=== PATIENT | male | born 1935 | race Caucasian/White ===

== ENCOUNTER 2022-03-10 15:15 | Emergency (ER) | payer MEDICARE, BC, SELFPAY ==
[2022-03-10 15:24] VITALS: BP 146/74; PULSE 90; RESP 18; TEMP 36.9; O2SAT 97; BMI 22.5
--- NOTE | 2022-03-10 15:38 | CRLHL7_ITS ---
For Patients: As a result of the Cures Act, medical imaging exams and procedure reports are released immediately into your electronic medical record. You may view this report before your referring provider. If you have questions, please contact your health care provider. Indication: Dislocation Technique: Right hip 2 views and AP view of the pelvis Comparison: September 05, 2021 Findings: Bones: Redemonstrated superior lateral dislocation of the prosthetic right femoral head. No underlying osseous fractures are identified. Demineralization of visualized bones. Joint spaces: Degenerative changes in the left hip, bilateral SI joints and lower lumbar spine. Soft tissues: Unremarkable. Impression: Dislocation of the right prosthetic femoral head. Dictated by Amara Puente MD @ 03/10/2022 4:47:51 PM (Electronically Signed)
[2022-03-10] MEDS: fentaNYL 100 MCG/2 ML inj 50 MCG IVP (15:40)
--- NOTE | 2022-03-10 15:42 | ED_ITS ---
HPI - Extremity Injury (Lower) General Time Seen by Provider: 15:35 Date Seen: 03/10/22 Chief Complaint: Hip Injury/Pain Stated Complaint: Hip Pain Time Seen by Provider: 03/10/22 15:34 Source: patient and family Mode of arrival: EMS History of Present Illness HPI Narrative: This 86-year-old male comes in with a right hip injury. 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 Today he was at home getting up from the toilet when his hip was injured again suspicious for a repeat dislocation. He does not have any other injury as result. He does have limited ability to give information because of dementia. MD complaint: hip injury Injury: Right: hip Severity: severe Relieving factors: nothing Related Data Allergies Allergy/AdvReac Type Severity Reaction Status Date / Time ciprofloxacin [From Cipro] Allergy Rash Verified 03/10/22 15:42 Review of Systems Status of ROS: Reports: unobtainable due to mental status PFSH PFS Social History Smoking Status: Never smoker Do you use any of these nicotine containing products: None How often do you have a drink containing alcohol: never AUDIT-C Alcohol total score: 0 Non-prescribed substance use: denies use service: No Exam Const: Vital Signs, click to edit/add: Vital Signs - 24 hr 03/10/22 15:24 Temperature 98.4 F Pulse Rate [Right Pulse Oximeter] 90 Respiratory Rate 18 Blood Pressure [Ri ght Upper Arm] 146/74 H Pulse Oximetry 97 Common normals: alert Orientation/consciousness: Yes awake HENMT: Common normals: normocephalic Head and scalp: normocephalic Eye: Common normals: PERRL Pupil: PERRL Neck & C-Spine: Common normals: full ROM General: normal visual inspection Chest: Common normals: inspection of chest normal Resp: Common normals: normal respiratory effort and clear to auscultation bilaterally Auscultation: clear to auscultation bilaterally Cardio: Common normals: regular rate and regular rhythm Rate: regular rate Rhythm: regular rhythm GI: Common normals: Normal to inspection, nondistended, normoactive bowel sounds present Inspection: normal to inspection Auscultation: normoactive bowel sounds : Other: Deferred Extremity: Right lower extremity: hip joint Other: The patient's hip is held in flexion and internal rotation typical of dislocation. Neuro: Common normals: no focal motor deficits Sensorium/orientation: awake and alert Psych: Common normals: mental status grossly normal Skin: Common normals: no rashes or lesions noted General skin exam: no rashes or lesions noted Course Vital Signs Vital signs: Initial Vital Signs Temperature 98.4 F 03/10/22 15:24 Temperature Source Temporal Artery Scan 03/10/22 15:24 Pulse Rate 90 03/10/22 15:24 Respiratory Rate 18 03/10/22 15:24 Blood Pressure 146/74 H 03/10/22 15:24 Blood Pressure Mean 98 03/10/22 15:24 Blood Pressure Position Sitting 03/10/22 15:24 Pulse Oximetry 97 03/10/22 15:24 Oxygen Delivery Method 03/10/22 15:24 Vital Signs Temperature 98.4 F 03/10/22 15:24 Pulse Rate 90 03/10/22 15:24 Respiratory Rate 18 03/10/22 15:24 Blood Pressure 146/74 H 03/10/22 15:24 Pulse Oximetry 97 03/10/22 15:24 Temperature 98.4 F 03/10/22 15:24 Pulse Rate 90 03/10/22 15:24 Respiratory Rate 18 03/10/22 15:24 Blood Pressure 146/74 H 03/10/22 15:24 Pulse Oximetry 97 03/10/22 15:24 MDM - Extremity Injury (Lower) MDM Narrative Medical decision making narrative: This patient comes in with a dislocated right hip. 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 His states that he had 2 previous dislocations in the past 4 days. This occurred up in [place] where he presented twice to have his hip relocated. X-ray images show evidence of an anterior dislocation. Anesthesia was contacted and after acquiring informed consent the patient received propofol for sedation. See anesthesia notes for more data in this regard. The patient had good sedation and I was very easily able to reduce his hip. The patient's and son and daughter have been present with him and indicate that he will very likely have another recurrence. I did speak with the hospitalist operations program manager and the orthopedic physician's assistant credit manager operations program manager regarding his situation. Arrangements are being made to connect with a revision assist that can attend to the complexity of this situation. Furthermore the hospitalist, Dr. Lepe, states that there are no transitional care or [place] [facility] facilities available for him if he were to stay overnight tonight and be placed tomorrow. The patient has not used a knee immobilizer or a hip abductor mechanism. IA did order a knee immobilizer and the patient and his family are willing to return home with this plan. I also advised them to consider going to a large hospital if he dislocates again where attention could be given more directly to the underlying problem. Medical Records Attestation: I reviewed the patient's medical records. Imaging Data Hip x-ray: My impression: Anterior dislocation of the right hip. Critical Care Time Critical Care Time Total Critical Care Time in Minutes: 45 Discharge Plan Discharge Patient Disposition: Home, Self-Care Condition: Improved Instructions: Hip Dislocation (ED) Activity Level: Activity as Tolerated and Don't flex hip more than 90 degrees Activity Detail: Wear knee immobilizer. Follow Up/Referrals: Jose Cherry MD [Primary Care Provider] - Stand Alone Forms: SeatID Info Instructions
--- NOTE | 2022-03-10 16:39 | CRLHL7_ITS ---
For Patients: As a result of the Cures Act, medical imaging exams and procedure reports are released immediately into your electronic medical record. You may view this report before your referring provider. If you have questions, please contact your health care provider. Indication: Post reduction. Technique: Right hip 1 views Comparison: Right foot radiographs from 03/10/2022. Findings: Bones: The bones are demineralized. No displaced fracture. Joint spaces: Reduction of the dislocated right hip arthroplasty. Soft tissues: Unremarkable. Impression: Dislocated arthroplasty has been reduced. Dictated by Jerrell Bowman MD @ 03/10/2022 5:58:09 PM (Electronically Signed)
--- NOTE | 2022-03-10 16:45 | PC.NURSE ---
procedure complete and hip reduced, imaging to room, pt still drowsy but arouses easily to voice, family at bedside
--- NOTE | 2022-03-10 16:48 | W.ANESCHARGE ---
Anesthesia Charges Start Date/Time Anesthesia Start Date: 03/10/22 Anesthesia Start Time: 16:26 Stop Date/Time Anesthesia Stop Date: 03/10/22 Anesthesia Stop Time: 16:47 Summary Emergency: Yes Extremes of Age: Over 70-CPT 60021
[2022-03-10 16:50] VITALS: BP 119/51; PULSE 88; RESP 14; O2SAT 96
[2022-03-10 17:00] VITALS: BP 127/60; PULSE 84; RESP 16; O2SAT 95
[2022-03-10 17:30] VITALS: BP 150/71; PULSE 87; RESP 14; O2SAT 99
--- NOTE | 2022-03-10 17:46 | PC.NURSE ---
Dr Fofana in room
[2022-03-10 18:00] VITALS: BP 136/87; PULSE 91; RESP 16; O2SAT 95
== END 2022-03-10 18:55 | disposition home or self-care (01) ==
PROVIDERS: Emergency Provider Emergency Medicine Emergency Medical Services; PCP Family Medicine
DX: S73.034A Other anterior dislocation of right hip, initial encounter (principal)
CPT/HCPCS: 1200; 27266; 73501; 73502; 99100; 99140; 99285; 99291; J2704; J3010

== ENCOUNTER 2022-06-18 16:16 | Inpatient (IN) | payer MEDICARE, BC, SELFPAY ==
[2022-06-18] VITALS (18 sets, daily range): BP systolic 84–158; BP diastolic 43–110; PULSE 98–122; RESP 13–22; TEMP 37.3–39.1; O2SAT 90–95; BMI 22.5
--- NOTE | 2022-06-18 17:07 | CRLHL7_ITS ---
For Patients: As a result of the Century Cures Act, medical imaging exams and procedure reports are released immediately into your electronic medical record. You may view this report before your referring provider. If you have questions, please contact your health care provider. INDICATION: Confusion, fever. TECHNIQUE: Chest 1 views. COMPARISON: 09/05/2021.. FINDINGS: Cardiovascular and mediastinum: Heart size and vasculature are normal in caliber and appearance. Lungs and pleural spaces: Bilateral interstitial opacities increased compared to prior exam. No large pleural effusion. No pneumothorax. Bones and soft tissues: Severe bilateral shoulder osteoarthritis. IMPRESSION: Chronic bilateral interstitial opacities increased compared to prior exam may be due to worsening chronic interstitial lung disease versus superimposed acute interstitial process such as infection or edema. Dictated by Rohith Burnett MD @ 06/18/2022 6:50:41 PM (Electronically Signed)
[2022-06-18] MEDS: LORazepam 2 MG/ML inj 0.5 MG IVP ×2 (17:39→22:34)
--- OUTSIDE RECORDS SUMMARY | 2022-06-18 17:39 | XMS_ITS | Clinical Summary ---
:1935 Author Organization [employer] [facility] [employer] [place] [address] Care Team Providers Name Role Phone Anna Ashford MD Unavailable Ranjit Baptiste MD Unavailable Jose Cherry MD Primary Care Provider Allergies Active Allergy Reactions Severity Noted Date Comments Ciprofloxacin Hives, Rash, Nausea Only 03/28/2007 Medications Medication Sig Dispensed Refills Start End Status Date Date blood-glucose As directed. 1 Device 0 12/08/19 Act theresa meterIndications: Dispense glucose 10 Diabetes mellitus meter, test type II strips and lancets. Dispense ONE STEP ULTRA #2 meter with test strips. ascorbic acid, Take 1 tablet by 0 07/27/20 Active vitamin C, (VITAMIN mouth once 11 C) 1,000 mg tablet daily. niacin ER (NIASPAN) Take 1 tablet by 0 04/23/20 Active 500 mg mouth at 18 Sustained-Release bedtime. tablet cholecalciferol Take 1 capsule 0 11/14/19 Active (VITAMIN D3) 2,000 by mouth once 21 unit capsule daily. glipiZIDE Take 1 Tablet 180 Tablet 3 08/16/20 Activ e extended-release (10 mg) by mouth 21 (GLUCOTROL XL) 10 mg 2 times daily Extended-Release before meals. tabletIndications: TAKE 1 TABLET BY Type 2 diabetes MOUTH TWICE A mellitus without DAY BEFORE MEALS complication, without long-term current use of insulin (HC) lisinopriL (PRINIVIL; Take 1 Tablet 90 tablet. 3 08/16/20 Active ZESTRIL) 2.5 mg (2.5 mg) by 21 tabletIndications: mouth once Essential daily. hypertension plant stanol oren Take 1 capsule. 90 capsule. 3 08/16/20 Active 450 mg by mouth at 21 capIndications: Mixed bedtime. hyperlipidemia tamsulosin (FLOMAX) Take 2 Capsules 30 Capsule 11 08/16/20 Active 0.4 mg (0.8 mg) by 21 capsuleIndications: mouth once daily BPH with urinary after a meal. obstruction OneTouch Delica Plus DIRECTED. 100 Each 12 08/24/20 Active Lancet 33 gauge TEST ONCE DAILY 21 miscIndications: Type INDICATIONS: 2 diabetes mellitus DIABETES without complication, INDICATIONS: without long-term DIABETES current use of insulin (HC) ferrous gluconate 324 Take 324 mg by 0 Active mg (37.5 mg iron) tab mouth once daily tablet with a meal. hydrOXYchloroQUINE Take 1 Tablet 90 Tablet 3 11/23/19 Active (PLAQUENIL) 200 mg (200 mg) by 22 tabletIndications: mouth once Connective tissue daily. disease (HC) acetaminophen Take 325-650 mg 0 Active (TYLENOL) 325 mg by mouth every 4 tablet hours if needed for Pain. Max acetaminophen dose: 4000mg in 24 hrs. metFORMIN Take 1 Tablet 180 Tablet 3 03/02/20 Activ e (GLUCOPHAGE) 1,000 mg (1,000 mg) by 22 tabletIndications: mouth in the Type 2 diabetes morning and 1 mellitus without Tablet (1,000 complication, without mg) in the long-term current use evening. Take of insulin (HC) with meals. alendronate (FOSAMAX) Take 70 mg by 0 Active 70 mg tablet mouth every Monday. Take on empty stomach with full glass of water. Do not lie down for 1 hr. pantoprazole Take 20 mg by 0 Act theresa (PROTONIX) 20 mg mouth once tabletIndications: daily. heartburn clotrimazole-betameth Apply 1 Dose 0 Active asone cream topically to (LOTRISONE) 1-0.05 % affected area(s) cream once daily if needed. Apply to groin for irritation and enlargement. methocarbamoL Take 1 Tablet 30 Tablet 0 04/04/20 Ac tive (ROBAXIN) 500 mg (500 mg) by 22 tabletIndications: mouth every 6 History of revision hours if needed of total replacement for Muscle Spasm of right hip joint, PO 1st choice. Muscle spasm ibuprofen (ADVIL; Take 1 Tablet 30 Tablet 0 04/05/20 Active MOTRIN) 400 mg (400 mg) by 22 tabletIndications: mouth every 6 History of revision hours if needed of total replacement for Pain. of right hip joint novofine autocover 30 0 04/06/20 Active gauge x 1/3 needle 22 Multivitamin Cmb Take by mouth. 0 05/11/20 Active No.21-Iron-FA 22 (Certavite-Antioxidan t) 18-400 mg-mcg tab blood sugar USE TO TEST 100 Each 3 05/11/20 Active diagnostic (OneTouch DAILY E 11.65 22 Verio test strips) stripIndications: Type 2 diabetes mellitus with hyperglycemia, unspecified whether mcfp insulin use (HC) aspirin (ECOTRIN) 81 Take 1 Tablet 24 Tablet 0 04/04/2005/27 / Discontinued mg enteric coated (81 mg) by mouth 2021 (*Med tabletIndications: in the morning complete/Regim History of revision and 1 Tablet (81 en of total replacement mg) in the complete/Level of right hip joint evening. Take of care with meals. change) Basaglar KwikPen Inject 8 units 1 Each 5 05/11/2005/27/ Discontinued U-100 Insulin 100 subcutaneous at 2021 (*Med unit/mL (3 mL) bedtime. Product complete/Regim penIndications: Type desired: en 2 diabetes mellitus BASAGLAR complete/Level with hyperglycemia, of care unspecified whether change) mcfp insulin use (HC) QUEtiapine (SEROQUEL) Take 1 Tablet 30 Tablet 0 05/11/2005/12 5/ Discontinued 25 mg (25 mg) by mouth 2021 (*M ed tabletIndications: at bedtime. 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 Essential hypertension 11/07/2018 Connective tissue disease 07/10/2017 Overview: This resulted in elevated liver chemistr y tests. The family asked me to refill Hydroxychl oroquine as they no longer want to go down to [place]. CBC and Basic Metabolic Panel and liver chemistry tests need to be checked at least every 12 months. Jose Cherry MD signed electronically .................... 11/22/2021 Interstitial lung disease 07/10/2017 Overview: Followed at [facility] Urinary urgency 04/05/2017 Iron deficiency anemia due to chronic blood loss 08/13 Aortic valve stenosis 07/06/2015 Overview: Due for echocardiogram and Cardiology fo llow up in 12/2021 Yearly echocardiograms have been recomme nded and he will be due for an echocardiogram in 10/2020 Beny has no symptoms as of 11/08/2019. Sjogren's syndrome 04/17/2015 Fibrosis of lung 04/01/2015 H. pylori infection 06/04/2013 Overview: EGD 05/2013 H. Pylori JOSE 08/08/2012 AHI-32 08/10/2012 Overview: Per patient, Dr Narayan did not recommend C PAP. 11/12/2012 Diabetes mellitus, type 2 12/27/2011 Overview: Formatting of this note might be differe nt from the original. Diabetes mellitus type II Abnormal LFTs 10/27/2011 Overview: Fatty Liver based on ultrasound. 2 S/P recent MRI and liver chemistry tests being followed by Dr Marquez 05/01/201305/2013 thinks the liver chemistry tests are due to fatty liver. ACP (advance care planning) 04/28/2011 Overview: Discussed 04/28/2011 Sensorineural hearing loss, asymmetrical 02/08/2011 Overview: left worse than right, known asymmetry Tinnitus 02/08/2011 Overview: left ear only, related to asymmetric hea ring loss in left ear Unspecified hearing loss 07/26/2010 Overview: Had ruptured TYMPANIC MEMBRANES in servi ce: has chronic Tinnitus; will have Audiogram soon. 07/26/2010 Hyperlipidemia 03/28/2007 Benign prostatic hyperplasia 03/28/2007 Overview: Had seen Dr Tamayo spring 2008: not much found on exam; urinary frequency persists. 07/26/2010 Patient recently again saw Urologist, Dr Simental, who restarted Flomax and plans Cystoscopy after Hip surgery and recovery. 12/21/2011 Now with nocturia x 2-3 on Flomax and Ve sicare; considering Interstim 03/18/2013 Type 2 diabetes mellitus without complication, without long-term current 08/02/2002 use of insulin Overview: This was diagnosed in 05/1996. Resolved Problems Problem Noted Date Resolved Date Elevated troponin 09/25/2021 03/17/2022 Cystitis 09/25/2021 09/25/2021 HTN (hypertension) 12/25/2017 11/07/2018 Fe deficiency anemia 04/18/2012 08/13/2012 Overview: Noted since 2007; not progressive. Patient has donated blood regularly, las t 09/2011; advised against donations in future. 11/17/2011 Iron Deficiency Anemia confirmed by Dr Aleah Simeon. 04/18/2012 group home (current) use of anticoagulants 01/05/2012 03/07/2012 group home (current) use of anticoagulants 12/17/2007 10/21/2008 Encounters Date Type Specialty Care Team Description 06/14/2022 Telephone Elton Drake, 90 Day Foll ow Up 06/09/2022 Telephone Jose Cherry Form (Orders/ insulin) MD Americo 05/27/2022 Telephone Jose Cherry Medication Melissa Driscoll MD 05/23/2022 Refill Jose Cherry Refill Carolyn Driscoll MD (Lisinopril) 05/19/2022 Telephone Jose Cherry Medication Melissa Driscoll MD 05/11/2022 Office Visit Jose Cherry Ma, MD (Talk about ins ulin only taking 10 units of Basaglar. Would like to know if they ca n discontinue the Seroquel ); Fat igue (Very tired fal ls asleep often) 05/11/2022 Travel 05/10/2022 Phone Office Visit Alf Carver MD 05/02/2022 Telephone Jose Cherry FAX ORDERS ([facility] Leti Driscoll MD [facility]) 04/18/2022 Telephone Elton Drake, 30 Day Heidi Gregorio MD 03/18/2022 Anesthesia Event Bj Cross, Jeb Hubbard CRNA 03/18/2022 Surgery Elton Drake, RIGHT ARTHR OPLASTY REVISION HIP 03/18/2022 - Hospital Encounter Elton Drake, William ion of total replacement of right hip joint (Primary Dx); 04/05/2022 Muscle spasm; Dementia associ ated with other underlying disease without behavioral disturbance (HC); Type 2 diabetes mellitus with hyperglycemia, unspecified whether mcfp insulin use (HC) [facility] 8:26 AM CDT Images from the original not e were not included. HOSPITAL DISCHARGE SUMMARY Patient Name: Power Grey Date of : 1935 Age : 86 y.o. [id number] Primary Physician: Jose Cherry MD Admission Date: 03/18/2022 Discharge Date: 04/05/2022 Dear Jose Cherry MD I am writing to inform you t hat we cared for your patient Power Grey at [place], [place] on the above dates. He will be discharged from [place], [place] to memory care. PRINCIPAL DISCHARGE DIAGNOSI S: History of revision of total replacement of right hip joint Principal Problem: Revision of total replaceme nt of right hip joint Active Problems: Benign prostatic hyperplasi a JOSE 08/08/2012 AHI-32 Aortic valve stenosis Essential hypertension Diabetes mellitus, type 2 ( HC) Disorder of lung with Sjogr en's syndrome (HC) Dementia associated with ot her underlying disease without behavioral disturbance (HC) BRIEF HOSPITAL COURSE: Power Grey is a 86 y.o. male with multiple medical problems including dementia, BPH, severe , HTN, DM2, JOSE, disorder of Sjogren's disease and interstitial lung disease. He was admitted following elective revision right tota l hip arthroplasty after failed conservative outpatient therapy. I am assisting with medical management as follows: S/P revision of total replac ement of right hip joint. Doing well postop with pain well controlled. Tolerating ambulation, physical therapy - walking > 200 feet with minimal assistance. He will follow up with Orthopedics as mg jamison. Has been cleared to proceed to subacute rehabilitation but had behavioral challenges related to Dementia associated with other underlying disease. Behavior (intermitte ntly restless, impulsive and easily agitated) has been resolved with oral Seroquel and patient no longer requiring 1:1 observational care and is appropriate for memory care. Diabetes mellitus, type 2: A 1C 8.9 consistent with poor control. Patient was started on Lantus insulin plus sliding scale with metformin held. At this time, patient will discharge on metformin and Lantus at bedtime as detailed below. No changes were made to exis ting management of the patient's other medical conditions as they were deemed at baseline. Patient will discharge in fair hemodynamic condition. Medications have been reconci led with the patient who has received extensive counseling on, and express understanding of the treatment plan given the patient's current medical condition. Follow-up is detailed below. PROCEDURES PERFORMED DURING HOSPITALIZATION: Revision total hip arthroplasty on the right COMPLICATIONS IN HOSPITAL: B ehavioral decompensation, now resolved PERTINENT FINDINGS/RESULTS A T DISCHARGE: BP 122/64 (Cuff Size: Adult Small) Pulse 98 Temp 98.3 ??F (36.8 ??C) Resp 16 Ht 1.651 m (5' 5) Wt 69.6 kg (153 lb 6.4 oz) SpO2 97% BMI 25.53 kg/m?? Patient Vitals for the past 72 hrs: Weight 04/04/22 0519 69.6 kg (153 l b 6.4 oz) 04/03/22 0010 70 kg (154 lb 4.8 oz) PHYSICAL EXAM GENERAL: Patient is in fair condition, in no apparent distress HEENT: Patient is normocepha lic, atraumatic EYES: No conjunctival inject ion, no significant icterus, PERRLA NECK: Neck is soft and suppl e, no areas of tenderness or cervical lymphadenopathy. RESPIRATORY: Lungs are CTA w ithout rales or rhonchi CARDIOVASCULAR: S1S2 heard. RRR, no murmurs, rubs or gallops GI: Soft, non-distended with out organomegaly. Non-tender without rebound or guarding. BS are normoactive. EXTREMITIES: Warm & well per fused. No edema NEUROLOGIC: The patient is a wake, alert and oriented to self. Grossly normal neurological exam. PSYCHIATRIC: Normal affect, tangential speech SKIN: Exposed skin is within normal limits. MS: No obvious muscular asym metry. Right hip tender with range of motion ?? Latest Laboratory Results: Chem: Recent Labs 03/31/22 0625 03/28/22 0858 SODIUM 137 137 POTASSIUM 3.9 4.3 CREATININE 0.78 0.71 WBC/Hgb: Recent Labs 04/01/22 0628 03/31/22 0625 03/28/22 1330 03/19/22 0722 03/16/22 1642 WBC -- -- 6.8 -- 6.2 HGB 10.3 L 7.3 L 8.7 L < > 1 0.4 L < > = values in this interv al not displayed. Imaging Results: XR RT HIP: right total hip a rthroplasty with components well aligned. ?? IMPORTANT PENDING TEST RESUL TS: Lab results that may not be resulted at time of discharge: (From admission through now) None CONDITION AT DISCHARGE: Impr oving DISCHARGE ORDERS Your Home Medicines START taking these medicines Instructions Get Wade U-100 Insul in 100 unit/mL (3 mL) pen For diagnoses: Type 2 diabet es mellitus with hyperglycemia, unspecified whether mcfp insulin use (HC) Generic drug: insulin glargi ne (U-100) Inject 20 units subcutaneou s at bedtime. Product desired: BASAGLAR ibuprofen 400 mg tablet For diagnoses: Revision of t otal replacement of right hip joint Commonly known as: ADVIL; MO MANJINDER Take 1 Tablet (400 mg) by m outh every 6 hours if needed for Pain. methocarbamoL 500 mg tablet For diagnoses: Revision of t otal replacement of right hip joint, Muscle spasm Commonly known as: ROBAXIN Take 1 Tablet (500 mg) by m outh every 6 hours if needed for Muscle Spasm PO 1st choice. * QUEtiapine 25 mg tablet For diagnoses: Dementia asso ciated with other underlying disease without behavioral disturbance Commonly known as: SEROQUEL Take 0.5 Tablets (12.5 mg) by mouth once daily. * QUEtiapine 25 mg tablet For diagnoses: Dementia asso ciated with other underlying disease without behavioral disturbance Commonly known as: SEROQUEL Take 1.5 Tablets (37.5 mg) by mouth at bedtime. * This list has 2 medicatio n(s) that are the same as other medications prescribed for you. Read the directions carefully, and ask your doctor or other care provider to review them with you. CHANGE how you take these me dicines Instructions aspirin 81 mg enteric coated tablet For diagnoses: Revision of t otal replacement of right hip joint What changed: when to take t his Commonly known as: ECOTRIN Take 1 Tablet (81 mg) by mo uth in the morning and 1 Tablet (81 mg) in the evening. Take with meals. CONTINUE taking these medici margoth Instructions acetaminophen 325 mg tablet Commonly known as: TYLENOL Take 325-650 mg by mouth ev rachel 4 hours if needed for Pain. Max acetaminophen dose: 4000mg in 24 hrs. alendronate 70 mg tablet Commonly known as: FOSAMAX Take 70 mg by mouth every M onday. Take on empty stomach with full glass of water. Do not lie down for 1 hr. ascorbic acid (vitamin C) 1, 000 mg tablet Commonly known as: VITAMIN C Take 1 tablet by mouth once daily. blood-glucose meter For diagnoses: Diabetes cate itus type II As directed. Dispense gluco se meter, test strips and lancets. Dispense ONE STEP ULTRA #2 meter with test strips. cholecalciferol 2,000 unit c apsule Commonly known as: VITAMIN D 3 Take 1 capsule by mouth onc e daily. clotrimazole-betamethasone c ream 1-0.05 % cream Commonly known as: LOTRISONE Apply 1 Dose topically to a ffected area(s) once daily if needed. Apply to groin for irritation and enlargement. ferrous gluconate 324 mg (37 .5 mg iron) Tab tablet Take 324 mg by mouth once d aily with a meal. glipiZIDE extended-release 1 0 mg Extended-Release tablet For diagnoses: Type 2 diabet es mellitus without complication, without long-term current use of insulin (HC) Commonly known as: GLUCOTROL XL Take 1 Tablet (10 mg) by mo uth 2 times daily before meals. TAKE 1 TABLET BY MOUTH TWICE A DAY BEFORE MEALS Doctor's comments: DX Code N eeded . hydrOXYchloroQUINE 200 mg ta blet For diagnoses: Connective ti ssue disease (HC) Commonly known as: PLAQUENIL Take 1 Tablet (200 mg) by m outh once daily. lisinopriL 2.5 mg tablet For diagnoses: Essential hyp ertension Commonly known as: PRINIVIL; ZESTRIL Take 1 Tablet (2.5 mg) by m outh once daily. Doctor's comments: Wait unti l they call for this. metFORMIN 1,000 mg tablet For diagnoses: Type 2 diabet es mellitus without complication, without long-term current use of insulin (HC) Commonly known as: GLUCOPHAG E Take 1 Tablet (1,000 mg) by mouth in the morning and 1 Tablet (1,000 mg) in the evening. Take with meals. multivitamin tablet Commonly known as: MVI Take 1 Tablet by mouth once daily. Contains 0.4 mg of Folic Acid. niacin ER 500 mg Sustained-R elease tablet Commonly known as: NIASPAN Take 1 tablet by mouth at b edtime. OneTouch Delica Plus Lancet 33 gauge Misc For diagnoses: Type 2 diabet es mellitus without complication, without long-term current use of insulin (HC) Generic drug: lancets DIRECTED. TEST ONCE SOFIYA Y INDICATIONS: DIABETES INDICATIONS: DIABETES Doctor's comments: DX Code N eeded . OneTouch Verio test strips s trip For diagnoses: Type 2 diabet es mellitus with hyperglycemia, unspecified whether bondactor machine operator insulin use (HC) Generic drug: blood sugar di agnostic USE TO TEST DAILY E 11.65 Doctor's comments: DX Code N eeded . pantoprazole 20 mg tablet Commonly known as: PROTONIX Take 20 mg by mouth once da eduardo. plant stanol oren 450 mg Ca p For diagnoses: HYPERLIPIDEMI A MIXED Take 1 capsule. by mouth at bedtime. tamsulosin 0.4 mg capsule For diagnoses: BPH with urin cristopher obstruction Commonly known as: FLOMAX Take 2 Capsules (0.8 mg) by mouth once daily after a meal. Where to get your medicines You have received printed pr escription(s) for these medicines or supplies. Take these to your preferred pharmacy. Bring a paper prescription f or each of these medications ?? aspirin 81 mg enteric coa jan tablet ?? Basaglar KwikPen U-100 In sulin 100 unit/mL (3 mL) pen ?? ibuprofen 400 mg tablet ?? methocarbamoL 500 mg tabl et ?? OneTouch Verio test strip s strip ?? QUEtiapine 25 mg tablet ?? QUEtiapine 25 mg tablet After Discharge Orders and I nstructions Activity - Discharge activi ty / precautions posterior hip - Patient Instructions: -Continue to use the abduct ion pillow between your legs while sleeping until your follow up with your doctor. - Do not twist your affected leg inward. - When lying on your back, k eep knee of the affected leg pointed straight up or slightly outward. -Do not bend your hip more t wu a 90 degree angle. -Take rest periods often. Admission H & P Valid: Yes Agency Standing Orders: Yes All orders good for 45 days unelss otherwise indicated. Allergies -- Ciprofloxacin -- Hives, Rash and Nausea Only Discharge Summary: Enclosed Discharge activity / precau tions posterior hip: - Activity and weight beari ng as tolerated. - Use abduction pillow betwe en your legs when sleeping until your follow up appointment with your doctor. - Do not twist your affected leg inward. - When lying on your back, k eep knee of the affected leg pointed straight up or slightly outward. -Do not bend your hip more t wu a 90 degree angle. Encourage cough and deep br eathe: while awake. Follow up appointment(s) Or thopedic Surgeon to follow patient: Follow up with Tiffanie Coronado at the [facility] in 3 weeks. When to follow up: 3-4 week s GLUCOSE MONITORING CONTINOU S Three times daily before me als Give Two Step Mantoux: Yes, unless current or contraindicated Ice: Ice to extremity 20 minutes pre and post therapy to decrease pain and increase therapy outcome. Incentive Spirometry Encourage use every shift a nd more frequently if patient tolerates. Patient Aware Of Diagnosis - Yes Prevention of infection in your artificial joint: - Bacteria (germs) in your teeth or gums can be released into your bloodstream during some dental procedures. This can cause infections. - To help prevent an infecti on in your artificial joint, you may need to take antibiotics before dental work. - Talk with your orthopedic surgeon before you go to the dentist. Treatment Option: Full Resu scitation Treatment: Occupational The rapy Eval and Treat Status post total hip arthr oplasty protocol Treatment: Physical Therapy Eval and Treat Status post total hip arthr oplasty protocol Vital signs per facility ro utine Weights per facility routin e What you may eat and drink after your hospital stay: YOUR RECOMMENDED SELECTION FOR MEALS ARE: Diabetic diet: DYSPHAGIA - 6 - SOFT AND BITE SIZED Foods for this diet should b e cooked, tender and no larger than ?? inch (15 mm) in size. Vegetables should be steamed or boiled with final size of ?? inch. Stir-fried vegetables are often too firm and are not soft enough for this diet. Avoid foods that have nuts, seeds, coconut, pineapple or dried fruit. Fruits should be soft, kaylin d and without seeds. Canned and cooked fruit shou ld be soft and no larger than ?? inch. Avoid dry meats, dry fish, chunky peanut butter, and yogurt with nuts or coconut. When should you be concerne d? When to Call Your Health Ca re Provider: Call your health care provid er if you have: - any change in movement, timmons ch as new weakness or inability to move your arms or legs as usual - any change in sensation, s uch as new numbness or tingling - difficulty breathing - extreme fatigue (cannot ge t out of bed) - dizziness or lightheadedne ss that will not stop - chest pain - new confusion - hives (itchy raised rash) - nausea (upset stomach)and vomiting that will not stop - problems at your incision site: redness, tenderness, drainage, or signs of infection (pain, swelling, redness, unpleasant odor, warmth, or green or yellow discharge) - not had a bowel movement i n three days - a severe headache - eye problems - severe pain that is not re lieved by medicine, rest or ice - a temperature greater than 101.6 degrees Fahrenheit - a burning feeling when uri nating - urgency to urinate - any change or loss in carlos l or bladder control. - In an emergency, call 911 or go to an Emergency Department at a nearby hospital. When should you be concerne d? When to Call Your Health Ca re Provider: Call your health care provid er if you have: - any change in movement, timmons ch as new weakness or inability to move your arms or legs as usual - any change in sensation, s uch as new numbness or tingling - difficulty breathing - extreme fatigue (cannot ge t out of bed) - dizziness or lightheadedne ss that will not stop - chest pain - new confusion - hives (itchy raised rash) - nausea (upset stomach)and vomiting that will not stop - problems at your incision site: redness, tenderness, drainage, or signs of infection (pain, swelling, redness, unpleasant odor, warmth, or green or yellow discharge) - not had a bowel movement i n three days - a severe headache - eye problems - severe pain that is not re lieved by medicine, rest or ice - a temperature greater than 101.6 degrees Fahrenheit - a burning feeling when uri nating - urgency to urinate - any change or loss in carlos l or bladder control. - In an emergency, call 911 or go to an Emergency Department at a nearby hospital. Why you were at the [facility]? You were in the hospital fo r a total hip arthroplasty. Wound care - nicolle or sut ures: Apply ice at 30 minute inte rvals as needed. -The nicolle were removed fr om your incision and you have steri strips on your incision. These will fall off over time. Do not take a tub bath until your doctor says you may do so. - You may shower with steri strips in place. - Do not scrub your incision . FOLLOW-UP: He should see Jose kumar MD as above. Specialty follow-up: Orthope dics as scheduled AFTER HOSPITAL RECOMMENDATIO NS Follow up as directed Please feel free to contact me with any you questions that you may have. Sincerely Cricket Austin MD Hospitalist, [place], [place] Total time spent for dischar ge on date of discharge: 40 minutes Physician(s) in addition to primary physician who should receive a copy: 03/18/2022 Travel from Last 3 Months Immunizations Name Administration Dates Next Due AMB INFLUENZA IIV3 (AGE 65+ YRS) PF 06/18/2019, 06/14/2018 (Flu Clinic Only) COVID-19 vaccine (Transave 02/11/2022 30mcg/0.3mL) 12YO+ HINA-SUCROSE PF, MDV COVID-19 vaccine (Transave 06/10/2021, 11/07/2020, 30mcg/0.3mL) PF, MDV DT (Age < 7 years) 03/02/1987 Influenza, High-dose Inactivated 07/08/2016, 06/10/2015, Influenza, High-dose Quadrivalent 06/16/2021 Inactivated Influenza, IIV3 (Age >=3 years) 06/12/2013, 05/21/2012, 07/12, 07/26/2010, 06/18/2009, 06/19/2008, 06/27/2007, 06/27/2006, 07/04/2005, 06/21/2004, 06/28/2003, 06/27/2002, 07/10/2001, 06/27/2000, 07/06/1999, 07/08/1998, 07/10/1997 Influenza, Inactivated AIIV4 (Age 65+ 06/23/2020 Years) Preserv Free Influenza, Inactivated IIV3 (Age 65+ 07/03/2017 Years) Preserv Free Pneumococcal Poly,23-Valent 01/03/2007, 02/05/2004 (Pneumovax) Pneumococcal conj 13-Valent (Prevnar 07/06/2015 13) Td (Age >=7 Years) 01/03/2007, 01/07/1997 Td, Preservative Free (age >= 7 01/03/2007 Years) Tdap 10/27/2011 Zoster (Shingrix-RZV, recombinant) 01/31/2022, 10/26/2021 Zoster (Zostavax-ZVL, live) 01/03/2007 Family History Medical History Relation Name Comments Cancer Brother Phillip Metastatic at 78 Heart Disease Father Marco of [place] at 71 Cancer Maternal Grandfather Pancreatic Cancer Maternal Uncle 2 Pancreatic Cancer Maternal Uncle 3 Pancreatic Cancer-breast Mother June Hayden of metastat ic breast cancer at 71 Diabetes Mother June Hayden Osteoporosis Mother June Hayden Other Mother June Hayden Alzheimers Arthritis Sister 1 Lacey Dementia Sister 1 Lacey Dementia Sister 2 Marilyn Anesthesia Problem No Family History Blood Disease No Family History Relation Name Status Comments Brother Phillip (Age 78) Father Marco (Age 73) Maternal Grandfather Maternal Uncle 1 Maternal Uncle 2 Maternal Uncle 3 Mother June Hayden (Age 75) Sister 1 Lacey Alive Sister 2 Marilyn Alive Social History Tobacco Use Types Packs/Day Years Used Date Former Smoker Cigars Quit: 09/11/18 88 Smokeless Tobacco: Never Used Tobacco Cessation: Counseling Given: Yes Alcohol Use Standard Drinks/Week Comments Not Currently 0 (1 standard drink = 0.6 oz pure alcoho l) Sex Assigned at Date Recorded Not on file Obstetrics History Last Filed Vital Signs Vital Sign Reading Time Taken Comments Blood Pressure 154/77 05/11/2022 8:49 AM CDT Pulse 96 05/11/2022 8:49 AM CDT Temperature 36.8 ??C (98.3 ??F) 04/05/2022 8:05 AM CDT Respiratory Rate 16 04/05/2022 8:05 AM CDT Oxygen Saturation 99% 05/11/2022 8:49 AM CDT Inhaled Oxygen Concentration - - Weight 62.1 kg (136 lb 12.8 oz) 05/11/2022 8:49 AM CDT Height 165.5 cm (5' 5.16) 05/11/2022 8:49 AM CDT Body Mass Index 22.66 05/11/2022 8:49 AM CDT Plan of Treatment Upcoming Encounters Date Type Specialty Care Team Description 08/15/2022 Office Visit Jose Cherry MD [address] [place], [place] [address] (Wo rk) Health Maintenance Due Date Last Done Comments Tetanus booster 10/27/2021 10/27/2011, 01/03/2007, 01/03/2007, Additional history exists COVID-19 vaccine series (5 - 04/08/2022 02/11/2022, 021, Booster for Pfizer series) 11/07/2020, Additiona l history exists Influenza for age 65+ 05/12/2022 06/16/2021, 06/23/2020, 06/18/2019, Additional history exists Medicare Wellness for age 65+ 08/16/2022 08/16/2021, 2019, 11/07/2018, Additional history exists Depression screening for age 12+ 08/18/2022 08/18/2021, 02/2021, 08/16/2021, Additional history exists BMI (ht and wt on same day) for 05/11/2023 05/11/2022, 07/0 02/2022, age 18+ 12/09/2021, Additional history exists Tdap Completed 10/27/2011 Pneumococcal series for age 65+ Completed 07/06/2015, 12/11, 02/05/2004 Zoster (shingles) series for age Completed 01/31/2022, , 50+ 01/03/2007 Medical Devices Implanted 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 current use of insulin (HC) BASIC METABOLIC PANEL Routine 05/11/2022 10:09 Type 2 diabetes Results for this AM CDT mellitus without procedure a re in complication, the results without long-term section. current use of insulin (HC) HEMOGLOBIN A1C Routine 05/11/2022 10:09 Type 2 diabetes Result s for this AM CDT mellitus with stage procedur e are in 1 chronic kidney the results disease, section. unspecified whether [facility] insulin use (HC) XR FEMUR 2 VIEWS RIGHT Routine 04/03/2022 10:56 R esults for this AM CDT procedure are i n the results section. HEMOGLOBIN Early AM 04/01/2022 6:28 AM Results f or this CDT procedure are i n the results section. TRANSFUSE RBC (NURSE STAT 03/31/2022 1:38 PM COMMUNICATION ORDER) CDT TRANSFUSE RBC (NURSE STAT 03/31/2022 9:47 AM COMMUNICATION ORDER) CDT RBC W TYPE AND SCREEN STAT 03/31/2022 6:25 AM Results for this CDT procedure are i n the results section. COMP METABOLIC PANEL Early AM 03/31/2022 6:25 AM R esults for this CDT procedure are i n the results section. HEMOGLOBIN Early AM 03/31/2022 6:25 AM Results f or this CDT procedure are i n the results section. URINALYSIS MICROSCOPIC Timed 03/29/2022 3:40 PM Results for this CDT procedure are i n the results section. UA W/ SEDIMENT EXAM Today 03/29/2022 3:40 PM Re sults for this REFLEXED PER CRITERIA CDT proced ure are in the results section. CBC WITH AUTO Today 03/28/2022 1:30 PM Results for this DIFFERENTIAL CDT procedure are i n the results section. CBC WITH AUTO Today 03/28/2022 1:30 PM Results for this DIFFERENTIAL CDT procedure are i n the results section. BASIC METABOLIC PANEL Early AM 03/28/2022 8:58 AM Results for this CDT procedure are i n the results section. HEMOGLOBIN Early AM 03/27/2022 9:28 AM Results f or this CDT procedure are i n the results section. HEMOGLOBIN Early AM 03/26/2022 6:16 AM Results f or this CDT procedure are i n the results section. HEMOGLOBIN Early AM 03/24/2022 6:10 AM Results f or this CDT procedure are i n the results section. HEMOGLOBIN Early AM 03/23/2022 6:43 AM Results f or this CDT procedure are i n the results section. HEMOGLOBIN Early AM 03/22/2022 11:00 Results for this AM CDT procedure are i n the results section. HEMOGLOBIN Early AM 03/21/2022 8:45 AM Results f or this CDT procedure are i n the results section. BASIC METABOLIC PANEL Early AM 03/20/2022 7:17 AM Results for this CDT procedure are i n the results section. HEMOGLOBIN Early AM 03/20/2022 7:17 AM Results f or this CDT procedure are i n the results section. SODIUM Today 03/19/2022 7:22 AM Results f or this CDT procedure are i n the results section. HEMOGLOBIN Early AM 03/19/2022 7:22 AM Results f or this CDT procedure are i n the results section. SCAN-CARDIAC STRIP 03/18/2022 7:48 PM Res ults for this CDT procedure are i n the results section. XR HIP 1 VIEW W PELVIS MÓNICA 03/18/2022 3:22 PM Results for this RIGHT PORTABLE CDT procedure are in the results section. 1 VIEW PORTABLE PELVIS Routine 03/18/2022 2:34 PM Results for this IN OR CDT procedure are i n the results section. SUPRAGLOTTIC-LMA Routine 03/18/2022 2:26 PM Resul ts for this CDT procedure are i n the results section. ARTERIAL LINE Routine 03/18/2022 1:33 PM Results for this CDT procedure are i n the results section. ARTHROPLASTY REVISION Elective 03/18/2022 1:27 PM dislocation o f HIP CDT internal right hip prosthesis Case Notes INPT AT 1015 (REP?) (135 LBS )(BLOOD THINNER)(DIABETIC) Special Needs H&P 03/16/2022 4:00 PM DEBORAH PENNY*PLEASE DO NOT CHANGE PATIENT'S , HIS INSURANCE CARD HAS THE WRONG , HIS STATE ID IS CORRECT WITH [id number] PERIPHERAL BLOCK Routine 03/18/2022 1:20 PM CDT R esults for this procedure are i n the results section . PERIPHERAL BLOCK Routine 03/18/2022 1:05 PM CDT R esults for this procedure are i n the results section . OR IMAGE CAPTURE MÓNICA 03/18/2022 12:59 PM CDT COVID 19 [place] Preop 03/18/2022 11:38 AM CDT Resu lts for this procedure are i n the results section . MRSA DNA PCR [facility] [place] Preop 03/18/2022 11:30 AM CDT Results for this ONLY procedure are i n the results section . SCAN-CARDIAC STRIP 03/18/2022 12:12 AM CDT Results for this procedure are i n the results section . from Last 3 Months Results LIPID PANEL W REFLEX MEASURED LDL (05/11/2022 10:09 AM CDT) [facility] Method Time Signature CHOLESTEROL,TOTAL 144 100 - 199 05/12/2022 [facility] mg/dL 4:30 AM CDT [facility] TRIGLYCERIDES 39 <150 05/12/2022 [facility] mg/dL 4:30 AM CDT [facility] HDL CHOLESTEROL 48 >40 mg/dL 05/12/2022 [facility] 4:30 AM CDT [facility] NON-HDL 96 <145 05/12/2022 [facility] CHOLESTEROL mg/dl 4:30 AM CDT [facility] CHOL/HDL RATIO 3.00 <4.50 05/12/2022 [facility] 4:30 AM CDT [facility] LDL CHOLESTEROL 88 <=130 05/12/2022 [facility] mg/dL 4:30 AM CDT [facility] VLDL CHOLESTEROL 8 <=30 05/12/2022 [facility] mg/dL 4:30 AM CDT [facility] PROVIDER ORDERED RANDOM 05/12/2022 [facility] STATUS 4:30 AM CDT [facility] Specimen Anatomical Collection Method / Collection Time Recei quinn Time (Source) Location / Volume Laterality Blood BLOOD SPECIMEN / Venipuncture / 05/11/2022 10:09 05/11 Unknown Unknown AM CDT 10:09 AM CDT Jose Cherry MD CHEMISTRY Performing Organization Address City/State/ZIP Code Phon e Number [facility] [address] [place] [address] LABORATORY-CENTRAL 2000 LABORATORY TSH (05/11/2022 10:09 AM CDT) athologist Signature TSH 3.52 0.35 - 4.94 05/11/[address] [facility] uIU/mL 6:55 PM CDT LABORATORY-CENTR AL LABORATORY Specimen Anatomical Collection Method / Collection Time Recei quinn Time (Source) Location / Volume Laterality Blood BLOOD SPECIMEN / Venipuncture / 05/11/2022 10:09 05/11 Unknown Unknown AM CDT 10:09 AM CDT Narrative [facility] LABORATORY-CENTRAL LABORAT ORY - 05/11/2022 6:55 PM CDT In Adults, TSH values between 5.00 and 10.00 uIU/ml do not necessarily indicate the presence of Hyp othyroidism. Correlation with clinical findings such as presence of goiter and/or Thyroperoxidase (TPO) Antibody ma y be helpful. For more information please refer to RICHY 20 ; [phone]: [phone]. Jose Cherry MD CHEMISTRY Performing Organization Address City/[facility]/ZIP Code Phon e Number [facility] [address] [place] [address] LABORATORY-CENTRAL 2000 LABORATORY (ABNORMAL) HEMOGLOBIN (05/11/2022 10:09 AM CDT)Only the most recent of11 results within the time period is included. athologist Signature HEMOGLOBIN 10.3 (L) 13.5 - 05/11/[address] [facility] 17.5 g/dL 10:18 AM CDT [facility] MCV 98 80 - 100 05/11/[address] [facility] fL 10:18 AM CDT [facility] Specimen Anatomical Collection Method / Collection Time Recei quinn Time (Source) Location / Volume Laterality Blood BLOOD SPECIMEN / Venipuncture / 05/11/2022 10:09 05/11 Unknown Unknown AM CDT 10:09 AM CDT Jose Cherry MD HEMATOLOGY Performing Organization Address City/State/ZIP Code Phon e Number [facility] [address] [place] [address] HEMOGLOBIN A1C MONITORING (POCT) (05/11/2022 10:09 AM CDT) P athologist Signature HEMOGLOBIN A1C 6.3 <=6.4 % 05/11/[address] [facility] MONITORING 10:25 AM CDT [place] (POCT) [facility] Specimen Anatomical Collection Method / Collection Time Recei quinn Time (Source) Location / Volume Laterality Blood BLOOD SPECIMEN / Venipuncture / 05/11/2022 10:09 05/11 Unknown Unknown AM CDT 10:09 AM CDT Narrative [facility] - 2021 10:25 AM CDT ? (<=6.9%) ? Indicates good control ? (7.0% to 7.9%) ? Indicates fa ir control ? (>=8.0%) ? Indicates poor control ?? NOTE: ??These thresholds are guideli margoth and ?individual targets may va ry. Falsely low levels may be seen with: Recent Transfusion, Recent Significant B lood Loss, Hemolytic Diseases, or Falsely elevated levels may be seen with : Untreated Anemias, Splenectomy ? Jose Cherry MD CHEMISTRY Performing Organization Address City/State/ZIP Code Phon e Number [facility] [address] [place] [address] (ABNORMAL) BASIC METABOLIC PANEL (05/11/2022 10:09 AM CDT)Only the most recent of3 resultswithin the time period is included. Analysis Performed At Patho logist Time Signature SODIUM 138 135 - 145 05/11/2022 [facility] mmol/L 6:33 PM CDT [facility] POTASSIUM 4.5 3.5 - 5.0 05/11/2022 [facility] mmol/L 6:33 PM CDT [facility] CHLORIDE 103 98 - 110 05/11/2022 [facility] mmol/L 6:33 PM CDT [facility] TRAL LABORATORY CO2,TOTAL 28 21 - 31 05/11/2022 [facility] mmol/L 6:33 PM CDT [facility] ANION GAP 7 5 - 18 05/11/2022 [facility] [employer] 6:33 PM CDT [facility] GLUCOSE 219 (H) 65 - 100 05/11/2022 [facility] [employer] mg/dL 6:33 PM CDT [facility] CALCIUM 9.2 8.5 - 10.5 05/11/2022 [facility] [employer] mg/dL 6:33 PM CDT [facility] BUN 13 8 - 25 05/11/2022 [facility] [employer] mg/dL 6:33 PM CDT [facility] CREATININE 0.93 0.72 - 05/11/2022 [facility] [employer] 1.25 mg/dL 6:33 PM CDT [facility] BUN/CREAT RATIO 14 10 - 20 05/11/2022 [facility] [employer] 6:33 PM CDT [facility] eGFR 80 (L) >90 05/11/2022 [facility] [employer] mL/min/1.7 6:33 PM CDT LABORATORY-MARIO 3m2 TRAL LABORATORY Comment: As of 2021, eGFR is calcu lated by the CKD-EPI creatinine equation without race adjustment. eGFR can be inf luenced by muscle mass, exercise, and diet. The reported eGFR is an estimation only and is only applicable if the renal function is stable. Specimen Anatomical Collection Method / Collection Time Recei quinn Time (Source) Location / Volume Laterality Blood BLOOD SPECIMEN / Venipuncture / 05/11/2022 10:09 05/11 Unknown Unknown AM CDT 10:09 AM CDT Jose Cherry MD CHEMISTRY Performing Organization Address City/State/ZIP Code Phon e Number [facility] [address] [place], [place] [address] [address] LABORATORY-CENTRAL 2000 LABORATORY XR FEMUR 2 VIEWS RIGHT (04/03/2022 10:56 AM CDT) Anatomical Region Laterality Modality FEMURS, FEMUR R Digital Radiography Specimen (Source) Anatomical Collection Method Collection Time Re ceived Time Location / / Volume Laterality 04/03/2022 11:52 AM CDT Impressions 04/03/2022 11:52 AM CDT Hardware components of a right hip arthroplasty device are situated in anatomic alignment. There is no evidence of periprosthetic fracture or hardware complication. Severe degenerative changes at the kn ee. There are atherosclerotic vascular c alcifications in the medial soft tissues of the thigh. Dictated by Anastasia Black MD @ 11:52:45 AM (Electronically Signed) Narrative 04/03/2022 11:52 AM CDT For Patients: ??As a result of the Cures Act, medical imaging exams and procedure reports are released immediately into your electronic medical record. ??You may view this report before you r referring provider. ??If you have ques tions, please contact your health care provider. INDICATION: Postop right leg pain. TECHNIQUE: Two views of the right femur. COMPARISON: Pelvis and right hip radiographs . Procedure Note Anastasia Black MD - 04/03/2022 For Patients: As a result of the Cures Act, medical imaging exams and procedure reports are released immediately into your electronic medical record. You may view this report before your referring provider. If you have questions, please contact yo health care provider. INDICATION: Postop right leg pain. TECHNIQUE: Two views of the right femur. COMPARISON: Pelvis and right hip radiographs . IMPRESSION: Hardware components of a right hip arthr oplasty device are situated in anatomic alignment. There is no evidence of periprosthetic fracture or hardware complication. Severe degenerative changes at the knee. There are atherosclerotic vascular calcifications in the medial soft tissues of the thigh. Dictated by Anastasia Black MD @ 11:52:45 AM (Electronically Signed) [facility] TRANSFUSE RBC (NURSE COMMUNICATION ORDER) (03/31/2022 4:59 PM CDT) Specimen (Source) Anatomical Location Collection Method / Collectio n Time Received Time / Laterality Volume Blood BLOOD SPECIMEN / Unknown Wade Villaseñor MD NURSING BLOOD BANK TRANSFUSE RBC (NURSE COMMUNICATION ORDER) (03/31/2022 1:22 PM CDT) Specimen (Source) Anatomical Location Collection Method / Collectio n Time Received Time / Laterality Volume Blood BLOOD SPECIMEN / Unknown Wade Villaseñor MD NURSING BLOOD BANK RBC W TYPE AND SCREEN (03/31/2022 6:25 AM CDT) Patholo gist Method Time Signature ANTIBODY Negative Negative 03/31/2022 [facility] SCREEN [place] 9:16 AM CDT [facility] ABORH [place] O Rh 03/31/2022 [facility] Positive 9:16 AM CDT [facility]ITAL [facility] CL[facility]IC SPECIMEN 04/03/2022 at 03/31/2022 [facility] EXPIRATION 2359 9:16 AM CDT HOSPITAL AND DATE/TIME [place] [facility] Specimen Anatomical Collection Method / Collection Time Recei quinn Time (Source) Location / Volume Laterality Blood BLOOD SPECIMEN / Venipuncture / 03/31/2022 6:25 2021 8:49 Unknown Unknown AM CDT AM CDT Narrative [facility] - 03/31 9:16 AM CDT Patient's blood bank history was reviewed. Previous transfusions? (unknown) If yes; when and where? ??() Organ transplant and/or within the last 3 months? (NO) Have you ever been told you have an anti body? ??(NO) If patient has had an organ transplant , or blood product transfusion within the last 3 months prior to their surgery date, the pre-surgery type and screen must be performed within 72 hours of their surgery date per FDA requirements. Wade Villaseñor MD BLOOD BANK Performing Organization Address City/State/ZIP Code Phon e Number [facility] [address] [place] [address] (ABNORMAL) COMP METABOLIC PANEL (03/31/2022 6:25 AM CDT) P athologist Signature SODIUM 137 137 - 145 03/31/2022 [facility] mmol/L 7:03 AM CDT [facility]IC POTASSIUM 3.9 3.5 - 5.1 03/31/2022 [facility] mmol/L 7:03 AM CDT [facility] CHLORIDE 106 98 - 107 03/31/2022 [facility] mmol/L 7:03 AM CDT [facility] CO2,TOTAL 30 22 - 30 03/31/2022 [facility] mmol/L 7:03 AM CDT [facility] GLUCOSE 79 65 - 100 03/31/2022 [facility] mg/dL 7:03 AM CDT [facility] CL[facility]IC CALCIUM 8.5 8.4 - 10.2 03/31/2022 [facility] mg/dL 7:03 AM [facility] BUN 21 (H) 9 - 20 03/31/2022 [facility] mg/dL 7:03 [facility]IC CREATININE 0.78 0.66 - 1.25 03/31/2022 [facility] mg/dL 7:03 AM [facility] eGFR 87 (L) >90 03/31/2022 [facility] mL/min/1.73 7:03 [facility] AND m2 CLINIC Comment: As of 2021, eGFR is calcu lated by the CKD-EPI creatinine equation without race adjustment. eGFR can be inf luenced by muscle mass, exercise, and diet. The reported eGFR is an estimation only and is only applicable if the renal function is stable. PROTEIN,TOTAL 5.9 (L) 6.3 - 8.2 g/dL 03/31/2022 7:03 AM [facility] BILIRUBIN,TOTAL 0.4 0.2 - 1.3 mg/dL 03/31/2022 7:03 AM [facility] CLIN[facility] ALK PHOSPHATASE [place] 193 (H) 38 - 126 IU/L 03/31/2022 7:03 AM [facility] ALT (SGPT) [place] 24 <50 IU/L 03/31/2022 7:03 AM [facility] AST (SGOT) [place] 39 17 - 59 IU/L 03/31/2022 7:03 AM [facility] ALBUMIN 2.8 (L) 3.6 - 5.0 g/dL 03/31/2022 7:03 AM [facility] GLOBULIN 3.1 2.1 - 4.1 g/dL 03/31/2022 7:03 AM [facility] A/G RATIO 0.9 0.8 - 2.0 03/31/2022 7:03 AM [facility] E [facility] ANION GAP [place] 5.2 03/31/2022 7:03 AM [facility] CLINIC BUN/CREAT RATIO [place] 27.0 03/31/2022 7:03 AM [facility] CDT HOSPITAL AND CLINIC Comment: NORMAL REFERENCE RANGE: 10-20 Specimen Anatomical Collection Method / Collection Time Recei quinn Time (Source) Location / Volume Laterality Blood BLOOD SPECIMEN / Venipuncture / 03/31/2022 6:25 2021 6:37 Unknown Unknown AM CDT AM CDT Wade Villaseñor MD CHEMISTRY Performing Organization Address City/State/ZIP Code Phon brannon Valencia [facility] [address] [place] [address] (ABNORMAL) URINALYSIS MICROSCOPIC (03/29/2022 3:40 PM CDT) P athologist Signature RBC 0-2 0-2, None 03/29/2022 [facility] Seen /HPF 4:06 PM CDT H[facility]PITAL [facility] CLINIC WBC 0-2 0-2, 3-5, 03/29/2022 [facility] None Seen 4:06 PM CDT HOSPITAL AND /HPF CLINIC BACTERIA Rare None Seen, 03/29/2022 [facility] Rare, 4:06 PM CDT HOSPITAL AND Occ[facility]ional CLINIC , Few Bacteria/H PF EPITHELIAL Few None Seen, 03/29/2022 [facility] CELLS Few 4:06 PM CDT HOSPITAL AND Epi/HPF CLINIC HYALINE CASTS 0-2 (A) (none) 03/29/2022 [facility] /LPF 4:06 PM CDT HOSPITAL [facility] CLINIC Specimen Anatomical Collection Method Collection Time Receive d Time (Source) Location / / Volume Laterality Urine URINE SPECIMEN / Non-Blood / 03/29/2022 3:40 PM 03/29 3:50 Unknown Unknown CDT PM CDT Cricket Austin [facility] URINE Performing Organization Address City/State/ZIP Code Phon brannon Valencia [facility] [address] [place] [address] (ABNORMAL) UA W/ SEDIMENT EXAM REFLEXED PER CRITERIA (03/29/2022 3:40 PM CDT) Patholo gist Method Time Signature CLARITY Clear Clear 03/29/2022 [facility] Clarity 3:56 PM CDT H[facility]PITAL [facility] CLINIC SPECIFIC 1.010 1.010, 03/29/2022 [facility] GRAVITY,URINE 1.015, 3:56 PM CDT [facility] AND 1.020, 1.025 CLINIC PH,URINE 5.5 6.0, 7.0, 03/29/2022 [facility] 8.0, 5.5, 3:56 PM CDT [facility] AND 6.5, 7.5, CLINIC 8.5 UROBILINOGEN, Normal Normal EU/dl 03/29/2022 [facility] QUALITATIVE 3:56 PM [facility]T [facility] PROTEIN, Negative Negative 03/29/2022 [facility] URINE mg/dL 3:56 PM CDT [facility] GLUCOSE, 500 (A) Negative 03/29/2022 [facility] URINE mg/dL 3:56 PM [facility]T [facility] KETONES,URINE Negative Negative 03/29/2022 [facility] mg/dL 3:56 PM [facility]T [facility] BILIRUBIN,URI Negative Negative 03/29/2022 [facility] NE 3:56 PM CDT [facility] OCCULT Small (A) Negative 03/29/2022 [facility] BLOOD,URINE 3:56 PM [facility]T [facility] LEUKOCYTE Negative Negative 03/29/2022 [facility] ESTERASE 3:56 PM [facility]T [facility] COLOR Yellow Yellow Color 03/29/2022 [facility] 3:56 PM [facility]T [facility] NITRITE Negative Negative 03/29/2022 [facility] 3:56 PM [facility]T [facility] Specimen Anatomical Collection Method Collection Time Receive d Time (Source) Location / / Volume Laterality Urine URINE SPECIMEN / Non-Blood / 03/29/2022 3:40 PM 03/29 3:50 Unknown Unknown CDT PM CDT [facility] URINE Performing Organization Address City/State/ZIP Code Phon e Number [facility] [address] [place] [address] (ABNORMAL) CBC WITH AUTO DIFFERENTIAL (03/28/2022 1:30 PM CDT) [facility] Method Time Signature WHITE BLOOD 6.8 4.5 - 11.0 03/28/2022 [place] COUNT thou/cu mm 1:38 PM [facility]T [facility] RED BLOOD COUNT 2.82 (L) 4.30 - 03/28/2022 [place] <5.90 1:38 PM [facility]T [facility] AND mil/cu mm CLINIC HEMOGLOBIN 8.7 (L) 13.5 - 03/28/2022 [place] 17.5 g/dL 1:38 PM [facility]T [facility] HEMATOCRIT 27.8 (L) 37.0 - 03/28/2022 [place] 53.0 % 1:38 PM [facility]T [facility] MCV 99 80 - 100 03/28/2022 [place] fL 1:38 PM [facility] MCH 30.9 26.0 - 03/28/2022 [place] 34.0 pg 1:38 PM [facility]T [facility] MCHC 31.3 (L) 32.0 - 03/28/2022 [place] 36.0 g/dL 1:38 PM [facility]T [facility] RDW 16.2 (H) 11.5 - 03/28/2022 [place] 15.5 % 1:38 PM [facility]T [facility] PLATELET COUNT 152 140 - 440 03/28/2022 [place] thou/cu mm 1:38 PM [facility] MPV 9.6 6.5 - 11.0 03/28/2022 [place] fL 1:38 PM [facility] % NEUT 73.4 (H) 42.0 - 03/28/2022 [place] 72.0 % 1:38 PM [facility]T [facility] % LYMPH 9.8 (L) 20.0 - 03/28/2022 [place] 44.0 % 1:38 PM [facility]T [facility] % MONO 10.4 <=12.0 % 03/28/2022 [place] 1:38 PM [facility]T [facility] % EOS 5.6 <=8.0 % 03/28/2022 [place] 1:38 PM [facility] % BASO 0.1 <=3.0 % 03/28/2022 [place] 1:38 PM [facility] ABSOLUTE 5.0 1.7 - 7.0 03/28/2022 [place] NEUTROPHILS thou/cu mm 1:38 PM [facility] ABSOLUTE 0.7 (L) 0.9 - 2.9 03/28/2022 [facility] LYMPHOCYTES thou/cu mm 1:38 PM [facility]T [facility] ABSOLUTE 0.7 <=0.9 03/28/2022 [facility] MONOCYTES thou/cu mm 1:38 PM [facility]T [facility] ABSOLUTE 0.4 <=0.5 03/28/2022 [facility] EOSINOPHILS thou/cu mm 1:38 PM [facility]T [facility] ABSOLUTE 0.0 <=0.3 03/28/2022 [facility] BASOPHILS thou/cu mm 1:38 PM [facility]T [facility] Specimen Anatomical Collection Method / Collection Time Recei quinn Time (Source) Location / Volume Laterality Blood BLOOD SPECIMEN / Venipuncture / 03/28/2022 1:30 2021 1:34 Unknown Unknown PM CDT PM CDT [facility] HEMATOLOGY Performing Organization Address City/State/ZIP Code Phon [facility] [address] [place] [id number] (ABNORMAL) SODIUM (03/19/2022 7:22 AM CDT) athologist Signature SODIUM 135 (L) 137 - 145 03/19/2022 [facility] mmol/L 9:28 AM CDT [facility] Specimen Anatomical Collection Method Collection Time Receive d Time (Source) Location / / Volume Laterality Blood BLOOD SPECIMEN / Add On / Unknown 03/19/2022 7:22 AM 0 03/19/2022 9:24 Unknown CDT AM CDT Danielle Barton MD CHEMISTRY Performing Organization Address City/State/ZIP Code Phon e [facility] [address] [place] [id number] SCAN-CARDIAC STRIP (03/18/2022 7:48 PM CDT) Narrative 03/18/2022 7:48 PM CDT This result has an attachment that is no t available. Ordered by an unspecified provider. Other Clinical Staff OTHER XR HIP 1 VIEW W PELVIS RIGHT PORTABLE (03/18/2022 3:22 PM CDT) Anatomical Region Laterality Modality HIPS, HIPL, Pelvis Digital Radiography Specimen (Source) Anatomical Collection Method Collection Time Re ceived Time Location / / Volume Laterality 03/22/2022 6:13 PM CDT Narrative 03/22/2022 6:13 PM CDT For Patients: ??As a result of the Cures Act, medical imaging exams and procedure reports are released immediately into your electronic medical record. ??You may view this report before you r referring provider. ??If you have ques tions, please contact your health care provider. Indication: Postoperative, right hip revision Technique: Four views of the right hip Comparison: 03/18/2022 Findings: Total right hip arthroplasty change. Sta ple line still present. Postoperative gas decreased in the interim. The femoral component appears well seated within the acetabular component. No acute appearing fracture. 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 Dictated by Segun Carrasco MD @ 2 5:52:41 PM (Electronically Signed) Procedure Note Segun Carrasco MD - 03/22/2022 For Patients: As a result of the Cures Act, medical imaging exams and procedure reports are released immediately into your electronic medical record. You may view this report before your referring provider. If you have questions, please contact yo health care provider. Indication: Postoperative, right hip revision Technique: Four views of the right hip Comparison: 03/18/2022 Findings: Total right hip arthroplasty change. Sta ple line still present. Postoperative gas decreased in the interim. The femoral component appears well seated within the acetabular component. No acute appearing fracture. 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 Dictated by Segun Carrasco MD @ 2 5:52:41 PM (Electronically Signed) Elton Drake MD GENERAL IMAGING 1 VIEW PORTABLE PELVIS IN OR (03/18/2022 2:34 PM CDT) Anatomical Region Laterality Modality Digital Radiography Specimen (Source) Anatomical Collection Method Collection Time Re ceived Time Location / / Volume Laterality 03/23/2022 6:19 AM CDT Impressions 03/23/2022 6:19 AM CDT Right hip replacement revision in progress. Dictated by Vladimir Garcia MD @ 03/23/2022 6:19:41 AM (Electronically Signed) Narrative 03/23/2022 6:19 AM CDT For Patients: ??As a result of the Cures Act, medical imaging exams and procedure reports are released immediately into your electronic medical record. ??You may view this report before you r referring provider. ??If you have ques tions, please contact your health care provider. INDICATION: Intraoperative right hip replacement rev ision. TECHNIQUE: Intraoperative AP image of the pelvis/hi ps. COMPARISON: None. FINDINGS: Right hip replacement revision is in pro cece. Right hip prosthetic components in good position. Procedure Note Vladimir Garcia MD - 03/23/2022Form atting of this note might be different from the original. For Patients: As a result of the Cures Act, medical imaging exams and procedure reports are released immediately into your electronic medical record. You may view this report before your referring provider. If you have questions, please contact yo health care provider. INDICATION: Intraoperative right hip replacement rev ision. TECHNIQUE: Intraoperative AP image of the pelvis/hi ps. COMPARISON: None. FINDINGS: Right hip replacement revision is in pro cece. Right hip prosthetic components in good position. IMPRESSION: Right hip replacement revision in progre ss. Dictated by Vladimir Garcia MD @ 03/23/2022 6:19:41 AM (Electronically Signed) Elton Drake MD GENERAL IMAGING Supraglottic (03/18/2022 2:26 PM CDT) Narrative Bj Cross CRNA - 03/18/2022 2:2 6 PM CDT Bj Cross CRNA ? 03/18/2022 ??2:27 PM Procedure: Supraglottic Patient location during procedure: OR Supraglottic Airway Properties Mask Ventilation: easy Type: i-gel Tube Size: 3 Insertion Attempts: 1 Placement Verification: auscultation and CO2 detection Assessment Assessment: atraumatic Additional Notes Attempted to do this surgery with Local MAC and peripheral nerve block. ?? But pt started to move on incision. ??Ca se converted to GA and LMA placed without difficulty. Electronically signed by Bj Cross CRNA ? Bj Cross CRNA ANESTHESIA PX NOTE ORDERABLE S HCHG KIT PR5 (03/18/2022 1:33 PM CDT) Narrative Bj Cross CRNA - 03/18/2022 1:3 3 PM CDT Bj Cross CRNA ? 03/18/2022 ??2:06 PM Arterial Line Patient location during procedure: OR Start time: 03/18/2022 1:33 PM End time: 03/18/2022 1:38 PM Indications: monitoring Staffing Preanesthetic Checklist Completed: patient identified, risks and benefits discussed, consent obtained and timeout performed Arterial Line Patient position: supine. Comment:. Laterality: left Site: radial Local Anesthetic: lidocaine 1%. Ultrasound guidance: live ultrasound. Needle localization (ultrasound): no pat hologic findings, selected vessel patent, anatomically normal, potential a ccess sites evaluated and needle visualized entering selected vessel. Securement/dressing: dressing applied. C omment: Supplemental O2: supplemental oxygen. Co mment:. Needle Catheter size: 20 G. Comment:. Catheter length: 4.5 cm. Comment: Lot Number: [id number] Events: no complications. Electronically signed by Bj Cross CRNA ? Bj Cross CRNA ANESTHESIA PX NOTE ORDERABLE S Peripheral Block (03/18/2022 1:20 PM CDT) Narrative Bj Cross CRNA - 03/18/2022 1:2 0 PM CDT Bj Cross CRNA ? 03/18/2022 ??2:18 PM Peripheral Block Patient location during procedure: pre-o p Start time: 03/18/2022 1:20 PM End time: 03/18/2022 1:35 PM Reason for block: at surgeon's request, post-op pain and primary anesthetic PreProcedure Checklist Completed: patient identified, site jose ed, risks and benefits discussed, surgical consent, timeout performed and hand hygiene performed. Peripheral Block Patient position: prone Prep: chloraprep Patient monitoring: continuous pulse oxi metry, ECG and blood pressure Neuro Status: alert and mild sedation Block type: paravertebral Laterality: right Injection technique: single injection Skin Infiltration: lidocaine 1% Injection assessment: incremental Paravertebral block type: erector spinae Needle Needle type: short-bevel ?? Needle Details: echogenic Needle gauge: 20 G Needle length: 4 in Needle localization (ultrasound): live u ltrasound guidance, needle and nerve visualized, no pathologic findings , local anesthetic visualized surrounding nerve, nerve appears normal and permanent images obtained. Needle Localization (other): anatomical landmarks. Catheter Catheter used:no Events: no complications. Electronically signed by Bj Cross CRNA ? Bj Cross CRNA ANESTHESIA PX NOTE ORDERABLE S Peripheral Block (03/18/2022 1:05 PM CDT) Narrative Bj Cross CRNA - 03/18/2022 1:0 5 PM CDT Bj Cross CRNA ? 03/18/2022 ??2:12 PM Peripheral Block Patient location during procedure: floor Start time: 03/18/2022 1:05 PM End time: 03/18/2022 1:15 PM Reason for block: post-op pain and prima ry anesthetic PreProcedure Checklist Completed: patient identified, site jose ed, risks and benefits discussed, surgical consent, timeout performed and hand hygiene performed. Peripheral Block Patient position: supine Prep: chloraprep Patient monitoring: continuous pulse oxi metry and blood pressure Neuro Status: alert Block type: lower extremity ??and Perica psular Nerve Group Laterality: right Injection technique: single injection Skin Infiltration: lidocaine 1% Injection assessment: incremental Needle Needle type: Tuohy ?? Needle Details: echogenic Needle gauge: 18 G Needle length: 4 in Needle localization (ultrasound): live u ltrasound guidance, needle and nerve visualized, no pathologic findings , local anesthetic visualized surrounding nerve and permanent images o btained. Needle Localization (other): anatomical landmarks. Catheter Catheter used:no Events: no complications. Electronically signed by Bj Cross CRNA ? Bj Cross CRNA ANESTHESIA PX NOTE ORDERABLE S COVID 19 [place] (03/18/2022 11:38 AM CDT) athologist Signature COVID 19 Negative Negative 03/18/2022 [facility] 11:54 AM CDT [facility] Specimen Anatomical Collection Method Collection Time Receive d Time (Source) Location / / Volume Laterality Swab SPECIMEN FROM Non-Blood / 03/18/2022 11:38 03/18/2022 NASAL FOSSAE / Unknown AM CDT 11:39 AM CDT Unknown [facility] - 03/18 11:54 AM CDT This test has been cleared by the Food a nd Drug Administration under an Emergency use Agreement. Negative results do not precl ude 2019-nCoV infection and should not be used as the sole basis for treatment or other patient management decisions. Negative results must be combined with clinical o bservations, patient history and epidemiological information. Elton Drake MD MICROBIOLOGY Performing Organization Address City/[facility]/ZIP Code [facility] [address] [place] [address] MRSA DNA PCR [facility] [place] ONLY (03/18/2022 11:30 AM CDT) athologist Signature MRSA DNA PCR Negative Negative 03/18/2022 [facility] 3:24 PM CDT [facility] Specimen Anatomical Collection Method Collection Time Receive d Time (Source) Location / / Volume Laterality Other SPECIMEN FROM Non-Blood / 03/18/2022 11:30 03/18/2022 NASAL FOSSAE / Unknown AM CDT 12:54 PM CDT Unknown Elton Drake MD MICROBIOLOGY Performing Organization Address City/State/ZIP Code [facility] [address] [place] [address] SCAN-CARDIAC STRIP (03/18/2022 12:12 AM CDT) Narrative 03/18/2022 12:12 AM CDT This result has an attachment that is no t available. Ordered by an unspecified provider. Other Clinical Staff OTHER from Last 3 Months Insurance Payer Benefit Plan / Subscriber ID Effective Dates Phone Addre ss Type Group MEDICARE PART B MEDICARE PART B [id number] 2000-Hailey ATTN: CLAIMS - HB USE ONLY HB ONLY t [address] [place] [address] MEDICARE MEDICARE [id number] 2000-Presen [address] PROVIDER BASED PROVIDER BASED [place] [id number] MEDICARE PART A MEDICARE PART A [id number] 2021-Prese ATTN: CLAIMS - HB USE ONLY HB ONLY nt [address] [place] [address] BLUE CROSS MR MR BC [place] [id number] 2016-Presen [address] [place] [address] BLUE CROSS MR BL[place] CROSS [id number] 2016-Presen [address] [address] [place] ONLY [id number] BLUE CROSS BL[place] CROSS [id number] 2016-[place]en [address] [address] [place] ONLY [id number] Bela Grey Personal/Family Spouse 1937 [address] (Home) [address] [place] [address] Advance Directives Documents on File Type Date Recorded Patient Business Analytics Specialist Explanati on Healthcare Directive 08/24/2021 08/24/2021 Latest Code Status on File Code Status Date Activated Date Inactivated Comments Full Code 03/18/2022 3:46 PM 04/05/2022 3:13 PM Code Status Discussion: Unable to Assess Preferences, Provid er to review later Full Code 03/18/2022 11:58 AM 03/18/2022 3:45 PM Code Status Discussion: Not Discussed Full Code 12/13/2021 11:36 AM 12/15/2021 6:58 PM Code Status Discussion: Not Discussed Full Code 09/27/2021 3:06 PM 09/28/2021 9:07 PM Code Status Discussion: Reviewed Preferences Full Code 09/25/2021 8:11 PM 09/27/2021 3:06 PM Code Status Discussion: Unable to Assess Preferences, Provid er to review later Care Teams Principal Security Architect Relationship Specialty Start Date End Date Jose Cherry MD PCP - General Family Practice 06/12/13 [address] [place] [address] Anna Ashford MD Ophthalmology Surgery 10/27/11 Ranjit Baptiste MD Surgery - Orthopedics 10/27/11 Dr[facility] Shea at [place] Ophthalmology Surgery 10/27/11
[2022-06-18 18:04] LABS: Lactate* 5.5 mmol/L (0.5-1.9)
[2022-06-18 18:05] LABS: Hematocrit 34.6 % (37.0-53.0); Immature Granulocytes Abs Auto 0.06 K/uL (0.00-0.30); Lymphocytes Percent Auto 2.8 % (20-44); Mean Corpuscular HGB Conc 32 gm/dL (32-36); Mean Corpuscular Hemoglobin 30 pg (26-34); Mean Corpuscular Volume 96 fL (80-100); Neutrophils Percent Auto 92.6 % (42.0-72.0); Platelet Count* 100 K/uL (140-440); RDW Coefficient of Variation % 15.5 % (11.5-15.5); Red Blood Count 3.62 m/uL (4.30-5.90); White Blood Count* 10.16 K/uL (4.50-11.00)
[2022-06-18] MEDS: 0.9 % SODIUM CHLORIDE 500 ML 500 ML IV ×4 (18:06→23:09)
[2022-06-18 18:07] LABS: Slide Review Reflex No
[2022-06-18 18:25] LABS: Albumin* 4.2 g/dL (3.3-5.0)
[2022-06-18 18:26] LABS: Chloride* 95 mmol/L (96-114); Potassium* 4.3 mmol/L (3.6-5.1); Sodium* 131 mmol/L (135-149)
[2022-06-18 18:28] LABS: Alkaline Phosphatase* 197 U/L (40-150); Aspartate Amino Transferase* 39 U/L (12-35); Bilirubin Direct* 0.2 mg/dL (0.0-0.5); Bilirubin Total* 0.8 mg/dL (0.1-1.5); Lipase* 55 U/L (23-300); Total Protein* 8.5 g/dL (6.0-8.3)
[2022-06-18 18:29] LABS: Creatinine* 0.7 mg/dL (0.5-1.5); Est. Creatinine Clearance* 45.93; Estimated Glomerular Filt Rate 90 ml/min
[2022-06-18 18:29] LABS: Alanine Aminotransferase* 29 U/L (4-50)
[2022-06-18 18:30] LABS: Blood Urea Nitrogen* 20 mg/dL (7-30); Calcium* 9.4 mg/dL (8.4-10.6); Carbon Dioxide* 22 mmol/L (20-32)
[2022-06-18 18:33] LABS: C Reactive Protein* 5.1 mg/dL (0.5-1.0)
[2022-06-18 18:36] LABS: Appearance Urine Cloudy (Clear); Bilirubin Urine Negative (Negative); Blood Urine Trace-lysed (Negative); Color Urine Yellow (Yellow); Glucose Urine 2+ (Negative); Ketones Urine Trace (Negative); Leukocyte Esterase Urine Negative (Negative); Nitrite Urine Positive (Negative); Protein Urine Negative (Negative); Specific Gravity Urine 1.015 (1.000-1.030); Urobilinogen Urine 0.2 (0.2-1.0)
[2022-06-18 18:36] LABS: Glucose* 371 mg/dL (60-115)
[2022-06-18] MEDS: ACETAMINOPHEN 650 MG SUPP PR (18:40)
[2022-06-18 18:42] LABS: Troponin I* 0.11 ng/mL (0.01-0.04)
[2022-06-18 18:53] LABS: PCR FLU A Negative PCR FLU A (Negative); PCR FLU B Negative PCR FLU B (Negative); SARS PCR* Negative SARS-CoV-2 (Negative)
--- NOTE | 2022-06-18 18:56 | ED_ITS ---
HPI - General Adult General Chief complaint: Altered Mental Status Stated complaint: Confusion Time Seen by Provider: 06/18/22 16:54 Source: family Mode of arrival: wheelchair Limitations: altered mental status History of Present Illness HPI narrative: 86-year-old male brought in by his today for altered mental status. Patient has underlying dementia he however is able to ambulate and communicate with out much difficulty. She states that yesterday he seemed a little more confused than usual and this morning woke up and he was not communicating. He was unable to ambulate without assistance. She had to take him to the bathroom and help him on and off the toilet. This is a very large change from his baseline. She states that he has been feeling okay up until today, no fevers, normal appetite, no cough. He has not been complaining of chest pain or abdominal pain. He has not been complaining of shortness of breath. Patient lives with his who is his electrostatic paint operator. She is concerned because she cannot continue this level of care for him since he is not ambulating or communicating with her. She notices that when she helps him ambulate that he moves both feet symmetrically, and holds on with both hands. Patient does have history of aortic stenosis. Related Data Home Medications Medication Instructions Recorded Confirmed alendronate 70 mg tablet 70 mg PO .weekly 06/18/22 06/18/22 clotrimazole-betamethasone 1 1 applic topical DAILY PRN 06/18/22 06/18/22 %-0.05 % topical cream glipizide 10 mg tablet, extended 10 mg PO BID 06/18/22 06/18/22 release 24 hr hydroxychloroquine 200 mg tablet 200 mg PO DAILY 06/18/22 06/18/22 ibuprofen 400 mg tablet 400 mg PO Q6H PRN fever or pain 06/18/22 06/18/22 lisinopril 2.5 mg tablet 2.5 mg PO DAILY 06/18/22 06/18/22 metformin 1,000 mg tablet 1,000 mg PO BID 06/18/22 06/18/22 niacin 500 mg tablet,extended 500 mg PO HS 06/18/22 06/18/22 release 24 hr pantoprazole 20 mg tablet,delayed 20 mg PO DAILY 06/18/22 06/18/22 release tamsulosin 0.4 mg capsule 0.4 mg PO DAILY 06/18/22 06/18/22 Allergies Allergy/AdvReac Type Severity Reaction Status Date / Time ciprofloxacin [From Cipro] Allergy Rash Verified 03/10/22 15:42 Review of Systems Status of ROS: Reports: 10 or more systems reviewed and unremarkable except as noted in History and below (Obtained per ) PFSH [facility] Medical History (Updated 06/18/22 @ 20:29 by Sonam Valles MD) Aortic stenosis BPH loc w urin obs/LUTS Dementia GERD (gastroesophageal reflux disease) Hyperlipidemia Immunosuppressed status Interstitial lung disease Normocytic anemia Osteoporosis Sjogrens syndrome Type 2 diabetes mellitus Surgical History (Updated 06/18/22 @ 19:56 by Sonam Valles MD) History of hip replacement Social History Smoking Status: Never smoker Do you use any of these nicotine containing products: None How often do you have a drink containing alcohol: never AUDIT-C Alcohol total score: 0 Non-prescribed substance use: denies use service: No Exam Narrative: Exam Narrative: Thin, elderly patient. He does not communicate verbally, he appears somewhat agitated. He feels very warm to touch. He was afebrile upon arrival at 99.6, however repeat temperature now was 102.4. He appears to be breathing without difficulty. He does not follow commands. HEENT: Normocephalic atraumatic. Pupils are equally round reactive to light. Extraocular muscles are intact. Conjunctivae are moist without any icterus noted. Moist mucous membranes. Neck is supple. Cardiovascular: Heart is regular rate and rhythm S1 and S2 are present with a holosystolic murmur. Lungs: Slightly decreased on the left, crackles throughout the right lung. Abdomen: Soft and nontender nondistended with normal bowel sounds. No guarding or rebound. Extremities: Right lower extremity has trace pitting edema, left lower extremity is without edema. Skin: Well perfused without any obvious rashes. Const: Vital Signs, click to edit/add: Vital Signs - 24 hr 06/18/22 16:35 06/18/22 18:40 06/18/22 19:37 Temperature 99.6 F 102.4 F H 101.7 F H Pulse Rate [Right Pulse Oximeter] 106 H Respiratory Rate 18 Blood Pressure [Ri ght Upper Arm] 128/75 Pulse Oximetry 95 Oxygen Delivery Me thod Room Air 06/18/22 17:07 Temperature Pulse Rate [Right Pulse Oximeter] Respiratory Rate Blood Pressure [Ri ght Upper Arm] Pulse Oximetry 93 Oxygen Delivery Me thod Course Course Hospital Course: IV was started, given blood pressure was maintaining and his history of aortic stenosis we opted for normal saline at 1 L over 2 hours. Labs were drawn and showed thrombocytopenia at 100,000. Mild anemia, his lactate was quite elevated at 5.5. Blood cultures and urine culture drawn. Vanc and Zosyn administered. Chest x-ray Urinalysis Reevaluation(s) Reevaluation #1: Chest x-ray showed interstitial infiltrates that could potentially be consistent with pneumonia. Urine analysis showed nitrites and wbc's, as well as many bacteria. Patient was also hyponatremic, glucose elevated 371. Negative for flu and COVID. Patient remained hemodynamically stable was here. His pulse is generally in the low 100s, however with any agitation it would go up into the 120s. His blood pressure remained stable in the 120-140 systolic. Vital Signs Vital signs: Initial Vital Signs Temperature 99.6 F 06/18/22 16:35 Temperature Source Temporal Artery Scan 06/18/22 16:35 Pulse Rate 106 H 06/18/22 16:35 Pulse Rhythm 06/18/22 16:35 Respiratory Rate 18 06/18/22 16:35 Blood Pressure 128/75 06/18/22 16:35 Blood Pressure Mean 92 06/18/22 16:35 Blood Pressure Position Sitting 06/18/22 16:35 Pulse Oximetry 95 06/18/22 16:35 Oxygen Delivery Method 06/18/22 16:35 Vital Signs Temperature 99.6 F 06/18/22 16:35 Pulse Rate 106 H 06/18/22 16:35 Respiratory Rate 18 06/18/22 16:35 Blood Pressure 128/75 06/18/22 16:35 Pulse Oximetry 95 06/18/22 16:35 Oxygen Delivery Method 06/18/22 16:35 Temperature 101.7 F H 06/18/22 19:37 Pulse Rate 106 H 06/18/22 16:35 Respiratory Rate 18 06/18/22 16:35 Blood Pressure 128/75 06/18/22 16:35 Pulse Oximetry 93 06/18/22 17:07 Oxygen Delivery Method 06/18/22 16:35 Medical Decision Making MDM Narrative Medical decision making narrative: 86-year-old male presenting with fever and altered mental status, weakness: UTI versus pneumonia as potential causes for his symptoms. He is also hyponatremic with hyperglycemia. Patient will be admitted for further management. Patient does fit criteria for sepsis with fever, tachycardia and elevated lactate. Medical Records Medical records reviewed: Yes I reviewed the patient's medical records Lab Data Lab results reviewed: Yes I reviewed the patient's lab results Labs: Lab Results 06/18/22 06/18/22 06/18/22 Range/Units 17:15 17:22 17:22 WBC 10.16 (4.50-11.00) K/uL RBC 3.62 L (4.30-5.90) m/uL Hgb 11.0 L (13.5-17.5) gm/dL Hct 34.6 L (37.0-53.0) % MCV 96 (80-100) fL MCH 30 (26-34) pg MCHC 32 (32-36) gm/dL RDW Coeff of Domitila 15.5 (11.5-15.5) % Plt Count 100 L (140-440) K/uL Neut % (Auto) 92.6 H (42.0-72.0) % Lymph % (Auto) 2.8 L (20-44) % [place] % (Auto) 4.0 (0.0-11.0) % Eos % (Auto) 0.0 (0.0-7.0) % Baso % (Auto) 0.0 (0.0-3.0) % Neut # (Auto) 9.40 H (1.7-7.0) K/uL Lymph # (Auto) 0.30 L (0.90-2.90) K/uL [place] # (Auto) 0.40 (0.00-0.90) K/UL Eos # (Auto) 0.00 (0.00-0.50) K/uL Baso # (Auto) 0.00 (0.00-0.30) K/uL Abs Immat Gran (auto) 0.06 (0.00-0.30) K/uL ESR 94 H (2-15) mm/hr VBG pH (7.32-7.43) VBG pCO2 (40-50) mmHG VBG pO2 (25-47) mmHG VBG HCO3 (21-28) mmol/L Sodium (135-149) mmol/L Potassium (3.6-5.1) mmol/L Chloride (96-114) mmol/L Carbon Dioxide (20-32) mmol/L BUN (7-30) mg/dL Creatinine (0.5-1.5) mg/dL Estimated Creat Clear Estimated GFR ml/min Glucose (60-115) mg/dL Lactate (0.5-1.9) mmol/L Calcium (8.4-10.6) mg/dL Total Bilirubin (0.1-1.5) mg/dL Direct Bilirubin (0.0-0.5) mg/dL AST (12-35) U/L ALT (4-50) U/L Alkaline Phosphatase (40-150) U/L Troponin I (0.01-0.04) ng/mL C-Reactive Protein (0.5-1.0) mg/dL Total Protein (6.0-8.3) g/dL Albumin (3.3-5.0) g/dL Lipase (23-300) U/L Urine Color Yellow (Yellow) Urine Appearance Cloudy A (Clear) Urine pH 5.0 (5.0-8.5) Ur Specific [place] 1.015 (1.000-1.030) Urine Protein Negative (Negative) Urine Glucose (UA) 2+ A (Negative) Urine Ketones Trace A (Negative) Urine Blood Trace-lysed A (Negative) Urine Nitrite Positive A (Negative) Urine Bilirubin Negative (Negative) Urine Urobilinogen 0.2 (0.2-1.0) Ur Leukocyte Esterase Negative (Negative) Urine RBC 0-2 (0-2) Urine WBC 10-25 A (0-5) Urine WBC Clumps None (None) Ur Squamous Epith Cells None (None-Few) Urine Bacteria Many A (None) SARS-CoV-2 (PCR) (Negative) Influenza Type A (PCR) (Negative) Influenza Type B (PCR) (Negative) 06/18/22 06/18/22 06/18/22 Range/Units 17:22 17:22 17:32 WBC (4.50-11.00) K/uL RBC (4.30-5.90) m/uL Hgb (13.5-17.5) gm/dL Hct (37.0-53.0) % MCV (80-100) fL MCH (26-34) pg MCHC (32-36) gm/dL RDW Coeff of Domitila (11.5-15.5) % Plt Count (140-440) K/uL Neut % (Auto) (42.0-72.0) % Lymph % (Auto) (20-44) % [place] % (Auto) (0.0-11.0) % Eos % (Auto) (0.0-7.0) % Baso % (Auto) (0.0-3.0) % Neut # (Auto) (1.7-7.0) K/uL Lymph # (Auto) (0.90-2.90) K/uL [place] # (Auto) (0.00-0.90) K/UL Eos # (Auto) (0.00-0.50) K/uL Baso # (Auto) (0.00-0.30) K/uL Abs Immat Gran (auto) (0.00-0.30) K/uL ESR (2-15) mm/hr VBG pH 7.337 (7.32-7.43) VBG pCO2 44 (40-50) mmHG VBG pO2 27.9 (25-47) mmHG VBG HCO3 24 (21-28) mmol/L Sodium 131 L (135-149) mmol/L Potassium 4.3 (3.6-5.1) mmol/L Chloride 95 L (96-114) mmol/L Carbon Dioxide 22 (20-32) mmol/L BUN 20 (7-30) mg/dL Creatinine 0.7 (0.5-1.5) mg/dL Estimated Creat Clear 45.93 Estimated GFR 90 ml/min Glucose 371 H* (60-115) mg/dL Lactate 5.5 H* (0.5-1.9) mmol/L Calcium 9.4 (8.4-10.6) mg/dL Total Bilirubin 0.8 (0.1-1.5) mg/dL Direct Bilirubin 0.2 (0.0-0.5) mg/dL AST 39 H (12-35) U/L ALT 29 (4-50) U/L Alkaline Phosphatase 197 H (40-150) U/L Troponin I 0.11 H* (0.01-0.04) ng/mL C-Reactive Protein 5.1 H (0.5-1.0) mg/dL Total Protein 8.5 H (6.0-8.3) g/dL Albumin 4.2 (3.3-5.0) g/dL Lipase 55 (23-300) U/L Urine Color (Yellow) Urine Appearance (Clear) Urine pH (5.0-8.5) Ur Specific [place] (1.000-1.030) Urine Protein (Negative) Urine Glucose (UA) (Negative) Urine Ketones (Negative) Urine Blood (Negative) Urine Nitrite (Negative) Urine Bilirubin (Negative) Urine Urobilinogen (0.2-1.0) Ur Leukocyte Esterase (Negative) Urine RBC (0-2) Urine WBC (0-5) Urine WBC Clumps (None) Ur Squamous Epith Cells (None-Few) Urine Bacteria (None) SARS-CoV-2 (PCR) (Negative) Influenza Type A (PCR) (Negative) Influenza Type B (PCR) (Negative) 06/18/22 Range/Units 17:44 WBC (4.50-11.00) K/uL RBC (4.30-5.90) m/uL Hgb (13.5-17.5) gm/dL Hct (37.0-53.0) % MCV (80-100) fL MCH (26-34) pg MCHC (32-36) gm/dL RDW Coeff of Domitila (11.5-15.5) % Plt Count (140-440) K/uL Neut % (Auto) (42.0-72.0) % Lymph % (Auto) (20-44) % [place] % (Auto) (0.0-11.0) % Eos % (Auto) (0.0-7.0) % Baso % (Auto) (0.0-3.0) % Neut # (Auto) (1.7-7.0) K/uL Lymph # (Auto) (0.90-2.90) K/uL [place] # (Auto) (0.00-0.90) K/UL Eos # (Auto) (0.00-0.50) K/uL Baso # (Auto) (0.00-0.30) K/uL Abs Immat Gran (auto) (0.00-0.30) K/uL ESR (2-15) mm/hr VBG pH (7.32-7.43) VBG pCO2 (40-50) mmHG VBG pO2 (25-47) mmHG VBG HCO3 (21-28) mmol/L Sodium (135-149) mmol/L Potassium (3.6-5.1) mmol/L Chloride (96-114) mmol/L Carbon Dioxide (20-32) mmol/L BUN (7-30) mg/dL Creatinine (0.5-1.5) mg/dL Estimated Creat Clear Estimated GFR ml/min Glucose (60-115) mg/dL Lactate (0.5-1.9) mmol/L Calcium (8.4-10.6) mg/dL Total Bilirubin (0.1-1.5) mg/dL Direct Bilirubin (0.0-0.5) mg/dL AST (12-35) U/L ALT (4-50) U/L Alkaline Phosphatase (40-150) U/L Troponin I (0.01-0.04) ng/mL C-Reactive Protein (0.5-1.0) mg/dL Total Protein (6.0-8.3) g/dL Albumin (3.3-5.0) g/dL Lipase (23-300) U/L Urine Color (Yellow) Urine Appearance (Clear) Urine pH (5.0-8.5) Ur Specific [place] (1.000-1.030) Urine Protein (Negative) Urine Glucose (UA) (Negative) Urine Ketones (Negative) Urine Blood (Negative) Urine Nitrite (Negative) Urine Bilirubin (Negative) Urine Urobilinogen (0.2-1.0) Ur Leukocyte Esterase (Negative) Urine RBC (0-2) Urine WBC (0-5) Urine WBC Clumps (None) Ur Squamous Epith Cells (None-Few) Urine Bacteria (None) SARS-CoV-2 (PCR) Negative SARS-CoV-2 (Negative) Influenza Type A (PCR) Negative PCR FLU A (Negative) Influenza Type B (PCR) Negative PCR FLU B (Negative) Imaging Data Chest x-ray: Attestation: I have reviewed the pertinent imaging results. Radiologist's impression: FINDINGS: Cardiovascular and mediastinum: Heart size and vasculature are normal in caliber and appearance. Lungs and pleural spaces: Bilateral interstitial opacities increased compared to prior exam. No large pleural effusion. No pneumothorax. Bones and soft tissues: Severe bilateral shoulder osteoarthritis. IMPRESSION: Chronic bilateral interstitial opacities increased compared to prior exam may be due to worsening chronic interstitial lung disease versus superimposed acute interstitial process such as infection or edema. ECG Data Attestation: I personally reviewed and interpreted this ECG as follows: (Tachycardia with a pulse of 123) Discharge Plan Discharge Clinical Impression: Sepsis, Fever, Hyponatremia, Weakness, Hyperglycemia Patient Disposition: Admitted As Inpatient
[2022-06-18] MEDS: PIPERACILLIN/TAZOBACTAM 3.375 GM in 0.9 % SODIUM CHLORIDE Mini-bag 100 ML IVPB (19:02)
[2022-06-18 19:10] LABS: Bacteria Urine Many; RBC Urine 0-2 (0-2)
[2022-06-18 19:20] LABS: PCO2 VBG 44 mmHG (40-50); pH VBG 7.337 (7.32-7.43)
[2022-06-18 19:21] LABS: HCO3 VBG 24 mmol/L (21-28); PO2 VBG 27.9 mmHG (25-47)
[2022-06-18 19:26] LABS: Erythrocyte SedimentationRate* 94 mm/hr (2-15)
--- NOTE | 2022-06-18 19:57 | PM.IMHP1 ---
Hospitalist- H&P: HPI History of Present Illness Date Seen: 06/18/22 Chief complaint: Confusion Narrative: Power Grey is a 86 year old male who was brought into the emergency room by his today for acute change in mental status. Power has a known history of dementia, but will often answer questions when asked directly. She notes that over the past 2 days he has seemed more confused than his baseline, and today was very weak and became nonresponsive. She checked his blood sugar, which was 190. He was unable to perform ADLs secondary to weakness, which was up prompted her to bring him into the emergency room. He did not seem to have any localized symptoms or pain, per . ER course and findings: - patient found to have a fever - white blood count 10 with PMN predominance. Other notable lab findings: elevated troponin at 0.11, sodium of 131, lactate of 5.5, blood glucose >300 - UA revealed bacteriuria - chest ray exhibited chronic bilateral interstitial opacities that were increased to previous exams, possibly due to infection or edema vs worsening of known chronic interstitial lung disease - started on Vanco and Zosyn Patient's history gleaned from chart and confirmed with and daughter Zuleima. In addition to dementia, he has known aortic stenosis and interstitial lung disease, both followed by the [facility]. He also has type 2 diabetes, was on insulin until last month. His last A1c was in April and was 6.3. He has known chronic normocytic anemia, baseline hemoglobin around 10 as an outpatient. He also has Sjogren's syndrome, on Hydroxychloroquine. He had a right hip replacement in 03/2022 after previous surgery and repeated dislocations. During his hospital stay, he had intermittent agitation and was treated with Seroquel. Lives at [facility] Living with Bela. Daughter Zuleima lives in [place] as well. Per Bela and daughter Zuleima, patient is DNR/DNI, amenable to medical treatments for acute illness. Quit smoking remotely per chart review. Has received 4 COVID vaccines. Review of Systems Status of ROS: Reports: unobtainable due to mental status [facility] Medical History (Updated 06/18/22 @ 20:29 by Sonam Valles MD) Aortic stenosis BPH loc w urin obs/LUTS Dementia GERD (gastroesophageal reflux disease) Hyperlipidemia Immunosuppressed status Interstitial lung disease Normocytic anemia Osteoporosis Sjogrens syndrome Type 2 diabetes mellitus Surgical History (Updated 06/18/22 @ 19:56 by Sonam Valles MD) History of hip replacement Social History Smoking Status: Never smoker Do you use any of these nicotine containing products: None How often do you have a drink containing alcohol: never AUDIT-C Alcohol total score: 0 Non-prescribed substance use: denies use service: No Meds Home Medications and Allergies Home Medications Medication Instructions Recorded Confirmed Type alendronate 70 mg tablet 70 mg PO .weekly 06/18/22 06/18/22 History clotrimazole-betamethasone 1 1 applic topical DAILY PRN 06/18/22 06/18/22 History %-0.05 % topical cream glipizide 10 mg tablet, extended 10 mg PO BID 06/18/22 06/18/22 History release 24 hr hydroxychloroquine 200 mg tablet 200 mg PO DAILY 06/18/22 06/18/22 History ibuprofen 400 mg tablet 400 mg PO Q6H PRN fever or pain 06/18/22 06/18/22 History lisinopril 2.5 mg tablet 2.5 mg PO DAILY 06/18/22 06/18/22 History metformin 1,000 mg tablet 1,000 mg PO BID 06/18/22 06/18/22 History niacin 500 mg tablet,extended 500 mg PO HS 06/18/22 06/18/22 History release 24 hr pantoprazole 20 mg tablet,delayed 20 mg PO DAILY 06/18/22 06/18/22 History release tamsulosin 0.4 mg capsule 0.4 mg PO DAILY 06/18/22 06/18/22 History Home Medication Comments: Updated per patient's [facility] chart, patient was unable to confirm these. Allergies Allergy/AdvReac Type Severity Reaction Status Date / Time ciprofloxacin [From Cipro] Allergy Rash Verified 03/10/22 15:42 Exam Narrative: Exam Narrative: Patient is laying in hospital bed, appears ill. He is not answering questions. Cardiovascular exam exhibits tachycardia with holosystolic harsh murmur that radiates into carotids. Respiratory exam is limited by effort, rhonchi noted bilateral bases. Extremities reveal no concerning edema, there are no concerning skin findings on exposed skin. Const: Vital Signs, click to edit/add: Vital Signs - 24 hr 06/18/22 16:35 06/18/22 18:40 06/18/22 19:37 Temperature 99.6 F 102.4 F H 101.7 F H Pulse Rate [Right Pulse Oximeter] 106 H Respiratory Rate 18 Blood Pressure [Ri ght Upper Arm] 128/75 Pulse Oximetry 95 Oxygen Delivery Me thod Room Air 06/18/22 17:07 Temperature Pulse Rate [Right Pulse Oximeter] Respiratory Rate Blood Pressure [Ri ght Upper Arm] Pulse Oximetry 93 Oxygen Delivery Me thod Hospitalist - H&P: Result Labs Labs: Short CBC 06/18/22 Range/Units 17:22 WBC 10.16 (4.50-11.00) K/uL Hgb 11.0 L (13.5-17.5) gm/dL Hct 34.6 L (37.0-53.0) % Plt Count 100 L (140-440) K/uL BMP 06/18/22 17:22 Sodium 131 L Potassium 4.3 Chloride 95 L Carbon Dioxide 22 BUN 20 Creatinine 0.7 Glucose 371 H* Calcium 9.4 Cardiac Enzymes 06/18/22 Range/Units 17:32 Troponin I 0.11 H* (0.01-0.04) ng/mL Liver Function 06/18/22 Range/Units 17:32 Total Bilirubin 0.8 (0.1-1.5) mg/dL Direct Bilirubin 0.2 (0.0-0.5) mg/dL AST 39 H (12-35) U/L ALT 29 (4-50) U/L Alkaline Phosphatase 197 H (40-150) U/L Albumin 4.2 (3.3-5.0) g/dL Urine 06/18/22 Range/Units 17:15 Urine Color Yellow (Yellow) Urine Appearance Cloudy A (Clear) Urine pH 5.0 (5.0-8.5) Ur Specific [place] 1.015 (1.000-1.030) Urine Protein Negative (Negative) Urine Glucose (UA) 2+ A (Negative) INDICATION: Confusion, fever. TECHNIQUE: Chest 1 views. COMPARISON: 09/05/2021.. FINDINGS: Cardiovascular and mediastinum:? Heart size and vasculature are normal in caliber and appearance.? Lungs and pleural spaces: Bilateral interstitial opacities increased compared to prior exam. No large pleural effusion. No pneumothorax. Bones and soft tissues: Severe bilateral shoulder osteoarthritis. IMPRESSION: Chronic bilateral interstitial opacities increased compared to prior exam may be due to worsening chronic interstitial lung disease versus superimposed acute interstitial process such as infection or edema. Dictated by Rohith Burnett MD @ 06/18/2022 6:50:41 PM Assessment and Plan Assessment and plan (1) Fever: Status: Acute Assessment and Plan: Negative flu, COVID. Elevated lactate. Blood and urine cultures pending. Concern for infiltrates on CXR, also has bacteria. Will continue Zosyn and Vancomycin, follow lactate. Gentle IVF resuscitation given history of , monitor fluid balance closely. (2) Lactic acidosis: Status: Acute Assessment and Plan: see #1 (3) Elevated troponin: Status: Acute Assessment and Plan: NSTEMI vs demand ischemia from illness. Serial troponins, repeat TTE. (4) Aortic stenosis: Problem comment: Last TTE 02/2022 Final Impressions: 1. Normal LV size, moderately increased wall thickness, hyperdynamic global systolic function with an estimated EF of 70 - 75%. 2. The aortic valve is calcified, sclerotic and not well visualized, moderate to severe stenosis and mild regurgitation. The aortic valve peak velocity is 4.3 m/s, the peak gradient is 74 mmHg, and the mean gradient is 44 mmHg. The aortic valve area is 1.14 cm?? with a dimensionless index of 0.37. The stroke volume index is 62.0 ml/m??. 3. The mitral valve is sclerotic, mild mitral regurgitation. Mild to moderate mitral stenosis with a mean diastolic gradient of 5.1 mm Hg at a heart rate of 93 bpm. Status: Acute (5) Bacteriuria: Status: Acute Assessment and Plan: Urine culture pending. (6) Type 2 diabetes mellitus: Problem comment: On Glipizide and Metformin, was on insulin until 05/2022, last A1C 6.3 04/2022 Status: Acute Assessment and Plan: Hold Metformin given elevated lactate, accuchecks and SSI. (7) Immunosuppressed status: Problem comment: Hydroxychloroquine Status: Acute Plan - per above - Lovenox for ppx - Bela and daughter Zuleima aware of patient's tenuous status
--- OUTSIDE RECORDS SUMMARY | 2022-06-18 20:22 | XMS_ITS | Clinical Summary ---
:1935 Author Organization [facility] [place] [address] Care Team Providers Name Role Phone Anna [...] 2 diabetes mellitus with hyperglycemia, unspecified whether shelter insulin use (HC) aspirin (ECOTRIN) 81 Take [...] with hyperglycemia, of care unspecified whether change) shelter insulin use (HC) QUEtiapine (SEROQUEL) Take 1 [...] no longer want to go down to [place]. CBC and Basic Metabolic Panel and liver chemistry tests need to be checked at least every 12 months. Jose Cherry MD signed electronically .................... 11/22/2021 Interstitial lung disease 07/10/2017 Overview: Followed at [facility] Urinary urgency 04/05/2017 Iron deficiency anemia due [...] Anemia confirmed by Dr Aleah Simeon. 04/18/2012 shelter (current) use of anticoagulants 01/05/2012 03/07/2012 shelter (current) use of anticoagulants 12/17/2007 10/21/2008 Encounters [...] MD 05/02/2022 Telephone Jose Cherry FAX ORDERS ([facility] Leti Driscoll MD [facility]) 04/18/2022 Telephone Elton Drake, 30 Day Heidi [...] 2 diabetes mellitus with hyperglycemia, unspecified whether shelter insulin use (HC) Discharge Summary - [facility] 04/05/2022 8:26 AM CDT Images from the original not e were not included. HOSPITAL DISCHARGE SUMMARY Patient Name: Power Grey Date of : 1935 Age : 86 y.o. [id number] Primary Physician: Jose Cherry MD Admission Date: 03/18/2022 Discharge Date: 04/05/2022 Dear Jose Cherry MD I am writing to inform you t hat we cared for your patient Power Grey at [place], [place] on the above dates. He will be discharged from [place], [place] to memory care. PRINCIPAL DISCHARGE DIAGNOSI [...] diabet es mellitus with hyperglycemia, unspecified whether shelter insulin use (HC) Generic drug: insulin glargi [...] diabet es mellitus with hyperglycemia, unspecified whether terminal carman insulin use (HC) Generic drug: blood sugar [...] nearby hospital. Why you were at the [facility]? You were in the hospital fo r [...] may have. Sincerely Cricket Austin MD Hospitalist, [place], [place] Total time spent for dischar ge on date of discharge: 40 minutes Physician(s) in addition to primary physician who should receive a copy: 03/18/2022 Travel from Last 3 Months Immunizations Name Administration Dates Next Due AMB INFLUENZA IIV3 (AGE 65+ YRS) PF 06/18/2019, 06/14/2018 (Flu Clinic Only) COVID-19 vaccine (Bike HUD 02/11/2022 30mcg/0.3mL) 12YO+ HINA-SUCROSE PF, MDV COVID-19 vaccine (Bike HUD 06/10/2021, 11/07/2020, 30mcg/0.3mL) PF, MDV DT (Age [...] at 78 Heart Disease Father Marco of [place] at 71 Cancer Maternal Grandfather Pancreatic Cancer [...] Visit Jose Cherry MD [address] [place], [place] [address] (Wo rk) Health Maintenance [...] 50+ 01/03/2007 Medical Devices Implanted Type Area Kier Operator Device Shelf Model / Identifier Expiration Serial / Lot Date V40 Femoral Head Right: [place] 04/30/2024 62 [id number] / Implanted: Qty: 1 on 03/18/2022 by Elton Drake MD at [facility] Hip Orthopaedics / [id number] Procedures Procedure Name Priority Date/Time Associated Comments Diagnosis HEMOGLOBIN Routine 05/11/2022 10:09 Other iron Results for this AM CDT deficiency anemia procedure are in the results section. TSH Routine 05/11/2022 10:09 Type 2 diabetes Results for this AM CDT mellitus with procedure are in hyperglycemia, the results unspecified whether section. terminal carman insulin use (HC) LIPID PANEL W REFLEX [...] kidney the results disease, section. unspecified whether shelter insulin use (HC) XR FEMUR 2 VIEWS [...] REFLEX MEASURED LDL (05/11/2022 10:09 AM CDT) [facility] Method Time Signature CHOLESTEROL,TOTAL 144 100 - [...] Organization Address City/State/ZIP Code Phon e Number [facility] [address] [place] [address] LABORATORY-CENTRAL 2000 LABORATORY TSH (05/11/2022 10:09 AM CDT) athologist Signature TSH 3.52 0.35 - 4.94 05/11/2022 [facility] uIU/mL 6:55 PM CDT LABORATORY-CENTR AL LABORATORY Specimen Anatomical Collection Method / Collection Time Recei quinn Time (Source) Location / Volume Laterality Blood BLOOD SPECIMEN / Venipuncture / 05/11/2022 10:09 05/11 Unknown Unknown AM CDT 10:09 AM CDT Narrative [facility] LABORATORY-CENTRAL LABORAT ORY - 05/11/2022 6:55 PM CDT In Adults, TSH values between 5.00 and 10.00 uIU/ml do not necessarily indicate the presence of Hyp othyroidism. Correlation with clinical findings such as presence of goiter and/or Thyroperoxidase (TPO) Antibody ma y be helpful. For more information please refer to RICHY 20 ; 291: [phone]. Jose Cherry MD CHEMISTRY Performing Organization Address City/[facility]/ZIP Code Phon e Number [facility] [address] [place] [address] LABORATORY-CENTRAL 2000 LABORATORY (ABNORMAL) HEMOGLOBIN (05/11/2022 10:09 AM CDT)Only the most recent of11 results within the time period is included. athologist Signature HEMOGLOBIN 10.3 (L) 13.5 - 05/11/2022 [facility] 17.5 g/dL 10:18 AM CDT [facility] 98 80 - 100 05/11/2022 [facility] fL 10:18 AM CDT [facility] Specimen Anatomical Collection Method / Collection Time Recei quinn Time (Source) Location / Volume Laterality Blood BLOOD SPECIMEN / Venipuncture / 05/11/2022 10:09 05/11 Unknown Unknown AM CDT 10:09 AM CDT Jose Cherry MD HEMATOLOGY Performing Organization Address City/State/ZIP Code Phon e Number [facility] [address] [place] [address] HEMOGLOBIN A1C MONITORING (POCT) (05/11/2022 10:09 AM CDT) P athologist Signature HEMOGLOBIN A1C 6.3 <=6.4 % 05/11/2022 [facility] MONITORING 10:25 AM CDT [place] (POCT) [facility] Specimen Anatomical Collection Method / Collection Time Recei quinn Time (Source) Location / Volume Laterality Blood BLOOD SPECIMEN / Venipuncture / 05/11/2022 10:09 05/11 Unknown Unknown AM CDT 10:09 AM CDT Narrative [facility] - 2021 10:25 AM CDT ? (<=6.9%) [...] seen with : Untreated Anemias, Splenectomy ? oJse Cherry MD CHEMISTRY Performing Organization Address City/State/ZIP Code Phon e Number [facility] [address] [place] [address] (ABNORMAL) BASIC METABOLIC PANEL (05/11/2022 10:09 AM CDT)Only the most recent of3 resultswithin the time period is included. Analysis Performed At Patho logist Time Signature SODIUM 138 135 - 145 05/11/2022 [facility] mmol/L 6:33 PM CDT LABORATORY-MARIO TRAL LABORATORY POTASSIUM 4.5 3.5 - 5.0 05/11/2022 [facility] mmol/L 6:33 PM CDT LABORATORY-[facility] TRAL LABORATORY CHLORIDE 103 98 - 110 05/11/2022 [facility] mmol/L 6:33 PM CDT LABORATORY-MARIO TRAL LABORATORY CO2,TOTAL 28 21 - 31 05/11/2022 [facility] mmol/L 6:33 PM CDT LABORATORY-[facility] TRAL LABORATORY ANION GAP 7 5 - 18 05/11/2022 [facility] [place] 6:33 PM CDT LABORATORY-[facility]IO TRAL LABORATORY GLUCOSE 219 (H) 65 - 100 05/11/2022 [facility] [place] mg/dL 6:33 PM CDT LABORATORY-MARIO TRAL LABORATORY CALCIUM 9.2 8.5 - 10.5 05/11/2022 [facility] [place] mg/dL 6:33 PM CDT LABORATORY-[facility] TRAL LABORATORY BUN 13 8 - 25 05/11/2022 [facility] [place] mg/dL 6:33 PM CDT LABORATORY-[facility] TRAL LABORATORY CREATININE 0.93 0.72 - 05/11/2022 [facility] [place] 1.25 mg/dL 6:33 PM CDT LABORATORY-[facility] TRAL LABORATORY BUN/CREAT RATIO 14 10 - 20 05/11/2022 [facility] [place] 6:33 PM CDT LABORATORY-[facility]IO TRAL LABORATORY eGFR 80 (L) >90 05/11/2022 [facility] [place] mL/min/1.7 6:33 PM CDT LABORATORY-MARIO 3m2 TRAL [...] Organization Address City/State/ZIP Code Phon e Number [facility] [address] [place], [place] [address] [address] LABORATORY-CENTRAL 2000 LABORATORY XR FEMUR 2 VIEWS [...] soft tissues of the thigh. Dictated by Anastasai Black MD @ 11:52:45 AM (Electronically Signed) [...] Method Time Signature ANTIBODY Negative Negative 03/31/2022 [facility] SCREEN [place] 9:16 AM CDT [facility]ITAL [facility] CL[facility] ABORH [place] O Rh 03/31/2022 [facility] Positive 9:16 AM CDT H[facility]PITAL [facility] CLINIC SPECIMEN 04/03/2022 at 03/31/2022 [facility] EXPIRATION 2359 9:16 AM CDT HOSPITAL AND DATE/TIME [place] [facility] Specimen Anatomical Collection Method / Collection Time Recei quinn Time (Source) Location / Volume Laterality Blood BLOOD SPECIMEN / Venipuncture / 03/31/2022 6:25 2021 8:49 Unknown Unknown AM CDT AM CDT Narrative [facility] - 03/31 9:16 AM CDT [...] Organization Address City/State/ZIP Code Phon e Number [facility] [address] [place] [address] (ABNORMAL) COMP METABOLIC PANEL (03/31/2022 6:25 AM CDT) P athologist Signature SODIUM 137 137 - 145 03/31/2022 [facility] mmol/L 7:03 AM CDT [facility]ITAL [facility] CLINIC POTASSIUM 3.9 3.5 - 5.1 03/31/2022 [facility] mmol/L 7:03 AM CDT [facility] CHLORIDE 106 98 - 107 03/31/2022 [facility] mmol/L 7:03 AM CDT [facility]INIC CO2,TOTAL 30 22 - 30 03/31/2022 [facility] mmol/L 7:03 AM CDT [facility]IC GLUCOSE 79 65 - 100 03/31/2022 [facility] mg/dL 7:03 AM CDT [facility] CLINIC CALCIUM 8.5 8.4 - 10.2 03/31/2022 [facility] mg/dL 7:03 AM [facility] [place]NOTE 2[facility] HOSPITAL AND CLINIC BUN 21 (H) 9 - 20 03/31/2022 [facility] mg/dL 7:03 [facility] CREATININE 0.78 0.66 - 1.25 03/31/2022 [facility] mg/dL 7:03 AM [facility] eGFR 87 (L) >90 03/31/2022 [facility] mL/min/1.73 7:03 [facility] Comment: As of 2021, eGFR is calcu lated by the CKD-EPI creatinine equation without race adjustment. eGFR can be inf luenced by muscle mass, exercise, and diet. The reported eGFR is an estimation only and is only applicable if the renal function is stable. PROTEIN,TOTAL 5.9 (L) 6.3 - 8.2 g/dL 03/31/2022 7:03 AM [facility] BILIRUBIN,TOTAL 0.4 0.2 - 1.3 mg/dL 03/31/2022 7:03 AM [facility] ALK PHOSPHATASE [place] 193 (H) 38 - 126 IU/L 03/31/2022 7:03 AM [facility] ALT (SGPT) [place] 24 <50 IU/L 03/31/2022 7:03 AM [facility] AST (SGOT) [place] 39 17 - 59 IU/L 03/31/2022 7:03 AM [facility] ALBUMIN 2.8 (L) 3.6 - 5.0 g/dL 03/31/2022 7:03 AM [facility] GLOBULIN 3.1 2.1 - 4.1 g/dL 03/31/2022 7:03 AM [facility] A/G RATIO 0.9 0.8 - 2.0 03/31/2022 7:03 AM [facility] E [facility] ANION GAP [place] 5.2 03/31/2022 7:03 AM [facility] BUN/CREAT RATIO [place] 27.0 03/31/2022 7:03 AM R [facility] CDT HOSPITAL AND CLINIC Comment: NORMAL REFERENCE RANGE: 10-20 Specimen Anatomical Collection Method / Collection Time Recei quinn Time (Source) Location / Volume Laterality Blood BLOOD SPECIMEN / Venipuncture / 03/31/2022 6:25 2021 6:37 Unknown Unknown AM CDT AM CDT Wade Villaseñor MD CHEMISTRY Performing Organization Address City/State/ZIP Code Phon brannon Valencia [facility] [address] [place] [phone] (ABNORMAL) URINALYSIS MICROSCOPIC (03/29/2022 3:40 PM CDT) P athologist Signature RBC 0-2 0-2, None 03/29/2022 [facility] Seen /HPF 4:06 PM CDT [facility]ITAL [facility] CLINIC WBC 0-2 0-2, 3-5, 03/29/2022 [facility] None Seen 4:06 PM CDT HOSPITAL AND /HPF CLINIC BACTERIA Rare None Seen, 03/29/2022 [facility] Rare, 4:06 PM CDT HOSPITAL AND Occasional CLINIC , Few Bacteria/H PF EPITHELIAL Few None Seen, 03/29/2022 [facility] CELLS Few 4:06 PM CDT HOSPITAL AND Epi/HPF CLINIC HYALINE CASTS 0-2 (A) (none) 03/29/2022 [facility] /LPF 4:06 PM CDT [facility]ITAL [facility]IC Specimen Anatomical Collection Method Collection Time Receive d Time (Source) Location / / Volume Laterality Urine URINE SPECIMEN / Non-Blood / 03/29/2022 3:40 PM 03/29 3:50 Unknown Unknown CDT PM CDT Cricket [facility] URINE Performing Organization Address City/State/ZIP Code Phon brannon Valencia [facility] [address] [place] [phone] (ABNORMAL) UA W/ SEDIMENT EXAM REFLEXED PER CRITERIA (03/29/2022 3:40 PM CDT) Patholo gist Method Time Signature CLARITY Clear Clear 03/29/2022 [facility] Clarity 3:56 PM CDT [facility]ITAL [facility] CLINIC SPECIFIC 1.010 1.010, 03/29/2022 [facility] GRAVITY,URINE 1.015, 3:56 PM CDT HOSPITAL AND 1.020, 1.025 CLINIC PH,URINE 5.5 6.0, 7.0, 03/29/2022 [facility] 8.0, 5.5, 3:56 PM CDT HOSPITAL AND 6.5, 7.5, CLINIC 8.5 UROBILINOGEN, Normal Normal EU/dl 03/29/2022 [facility] QUALITATIVE 3:56 PM CDT [facility]ITAL [facility] CLINIC PROTEIN, Negative Negative 03/29/2022 [facility] URINE mg/dL 3:56 PM CDT [facility]INIC GLUCOSE, 500 (A) Negative 03/29/2022 [facility] URINE mg/dL 3:56 PM CDT [facility]INIC KETONES,URINE Negative Negative 03/29/2022 [facility] mg/dL 3:56 PM CDT [facility]IC BILIRUBIN,URI Negative Negative 03/29/2022 [facility] NE 3:56 PM CDT [facility]IC OCCULT Small (A) Negative 03/29/2022 [facility] BLOOD,URINE 3:56 PM CDT [facility]ITAL [facility]IC LEUKOCYTE Negative Negative 03/29/2022 [facility] ESTERASE 3:56 PM CDT [facility]IC COLOR Yellow Yellow Color 03/29/2022 [facility] 3:56 PM CDT [facility]IC NITRITE Negative Negative 03/29/2022 [facility] 3:56 PM CDT [facility] Specimen Anatomical Collection Method Collection Time Receive d Time (Source) Location / / Volume Laterality Urine URINE SPECIMEN / Non-Blood / 03/29/2022 3:40 PM 03/29 3:50 Unknown Unknown CDT PM CDT Cricket [facility] URINE Performing Organization Address City/State/ZIP Code Phon e Number [facility] [address] [place] [address] (ABNORMAL) CBC WITH AUTO DIFFERENTIAL (03/28/2022 1:30 PM CDT) [facility] Method Time Signature WHITE BLOOD 6.8 4.5 [...] ABSOLUTE 0.7 (L) 0.9 - 2.9 03/28/2022 [facility] LYMPHOCYTES thou/cu mm 1:38 PM CDT [facility] ABSOLUTE 0.7 <=0.9 03/28/2022 [facility] MONOCYTES thou/cu mm 1:38 PM CDT [facility] ABSOLUTE 0.4 <=0.5 03/28/2022 [facility] EOSINOPHILS thou/cu mm 1:38 PM CDT [facility] ABSOLUTE 0.0 <=0.3 03/28/2022 [facility] BASOPHILS thou/cu mm 1:38 PM CDT [facility] Specimen Anatomical Collection Method / Collection Time Recei quinn Time (Source) Location / Volume Laterality Blood BLOOD SPECIMEN / Venipuncture / 03/28/2022 1:30 2021 1:34 Unknown Unknown PM CDT PM CDT Cricket Austin [facility] HEMATOLOGY Performing Organization Address City/State/ZIP Code Phon [facility] [address] [place] [phone] (ABNORMAL) SODIUM (03/19/2022 7:22 AM CDT) athologist Signature SODIUM 135 (L) 137 - 145 03/19/2022 [facility] mmol/L 9:28 AM CDT [facility] Specimen Anatomical Collection Method Collection Time Receive d Time (Source) Location / / Volume Laterality Blood BLOOD SPECIMEN / Add On / Unknown 03/19/2022 7:22 AM 0 03/19/2022 9:24 Unknown CDT AM CDT Danielle Barton MD CHEMISTRY Performing Organization Address City/State/ZIP Code Phon e [facility] [address] [place] [phone] SCAN-CARDIAC STRIP (03/18/2022 7:48 PM CDT) Narrative [...] Catheter length: 4.5 cm. Comment: Lot Number: [id number] Events: no complications. Electronically signed by Bj [...] athologist Signature COVID 19 Negative Negative 03/18/2022 [facility] 11:54 AM CDT HOSPITAL AND [facility] Specimen Anatomical Collection Method Collection Time [...] Elton Drake MD MICROBIOLOGY Performing Organization Address City/[facility]/ZIP Code [facility] [address] [place] [address] MRSA DNA PCR [facility] [place] ONLY (03/18/2022 11:30 AM CDT) athologist Signature MRSA DNA PCR Negative Negative 03/18/2022 [facility] 3:24 PM CDT HOSPITAL AND [facility] Specimen Anatomical Collection Method Collection Time Receive d Time (Source) Location / / Volume Laterality Other SPECIMEN FROM Non-Blood / 03/18/2022 11:30 03/18/2022 NASAL FOSSAE / Unknown AM CDT 12:54 PM CDT Unknown Elton Drake MD MICROBIOLOGY Performing Organization Address City/State/ZIP Code [facility] [address] [place] [address] SCAN-CARDIAC STRIP (03/18/2022 12:12 AM CDT) Narrative 03/18/2022 12:12 AM CDT This result has an attachment that is no t available. Ordered by an unspecified provider. Other Clinical Staff OTHER from Last 3 Months Insurance Payer Benefit Plan / Subscriber ID Effective Dates Phone Addre ss Type Group MEDICARE PART B MEDICARE PART B [id number] 2000-Hailey ATTN: CLAIMS - HB USE ONLY HB ONLY t [address] [place] [address] MEDICARE MEDICARE [id number] 2000-[place]en [address] PROVIDER BASED PROVIDER BASED bl[place] [phone] MEDICARE PART A MEDICARE PART A [id number] 2021-Prese ATTN: CLAIMS - HB USE ONLY HB ONLY nt [address] [place] [address] BLUE CROSS MR MR BC [place] [id number] 2016-Presen [address] [place] [address] BLUE [place]OSS MR [place] [id number] 2016-Presen [address] [address] [place], [place] MR [place] ONLY [id number] [place] [id number] 2016-[place]en [address] [address] [place] [address] [place], [place] HB ONLY [id number] Bela Grey Personal/Family Spouse 1937 [address] (Home) [address] [place] [address] Advance Directives Documents on File Type Date Recorded Patient Etl Database Developer Explanati on Healthcare Directive 08/24/2021 08/24/2021 Latest [...] Provid er to review later Care Teams Websphere Process Server Developer Relationship Specialty Start Date End Date Jose Cherry MD PCP - General Family Practice 06/12/13 [address] [place] [address] Anna Ashford MD Ophthalmology Surgery 10/27/11 Ranjit Baptiste MD Surgery - Orthopedics 10/27/11 Dr. Shea at [facility] Ophthalmology Surgery 10/27/11
--- NOTE | 2022-06-18 21:23 | ED.NURSE ---
Dr. Valles notified of low BP. Additional 500mL of normal saline hung per MD instructions.
[2022-06-18 21:57] LABS: Lactate* 3.6 mmol/L (0.5-1.9)
[2022-06-18] MEDS: ENOXAPARIN 40 MG/0.4 ML INJ SUBCUT (22:36)
--- NOTE | 2022-06-18 22:36 | PC.NURSE ---
Critical Lab Trop 0.40 taken @0876, Dr. Valles notified
[2022-06-18] MEDS: 0.9 % SODIUM CHLORIDE 1000 ml 1,000 ML 125 ML IV (23:43)
[2022-06-19] VITALS (15 sets, daily range): BP systolic 82–123; BP diastolic 38–81; PULSE 73–109; RESP 16–26; TEMP 36.9–38.5; O2SAT 90–99
[2022-06-19] MEDS: PIPERACILLIN/TAZOBACTAM 3.375 GM in 0.9 % SODIUM CHLORIDE Mini-bag 100 ML IVPB ×4 (00:32→19:19)
--- NOTE | 2022-06-19 00:39 | PC.NURSE ---
notified of possible sepsis. Protocol in place
[2022-06-19] MEDS: MORPHINE 4 MG/ML INJ IVP ×4 (02:15→19:05)
[2022-06-19] MEDS: 0.9 % SODIUM CHLORIDE 1000 ml 1,000 ML 125 ML IV (04:33)
[2022-06-19] MEDS: LORazepam 2 MG/ML inj 0.5 MG IVP ×5 (04:37→21:29)
--- NOTE | 2022-06-19 04:52 | PC.NURSE ---
Pt came to floor @ 2100. Unable to respond and answer questions. Unable to ambulate. Incontinent of Bowel and urine. Dr aware of triggering sepsis and protocol in place. BP 80's/40s. 2 - 500 ml Bolus given and fluid running. Pt very restless and tries to get out of bed throughout night. is primary rn care manager: Pt no longer able to preform ADLs. Afebrile this night.
[2022-06-19 07:17] LABS: Lactate* 3.1 mmol/L (0.5-1.9)
[2022-06-19 07:30] LABS: Basophils Percent Auto 0.1 % (0.0-3.0); Hematocrit 28.5 % (37.0-53.0); Hemoglobin* 9.2 gm/dL (13.5-17.5); Immature Granulocytes Abs Auto 0.04 K/uL (0.00-0.30); Lymphocytes Percent Auto 1.5 % (20-44); Mean Corpuscular HGB Conc 32 gm/dL (32-36); Mean Corpuscular Hemoglobin 31 pg (26-34); Mean Corpuscular Volume 96 fL (80-100); Monocytes Percent Auto 4.8 % (0.0-11.0); Neutrophils Percent Auto 93.3 % (42.0-72.0); Platelet Count* 77 K/uL (140-440); RDW Coefficient of Variation % 15.7 % (11.5-15.5); Red Blood Count 2.98 m/uL (4.30-5.90); White Blood Count* 11.57 K/uL (4.50-11.00)
[2022-06-19 07:43] LABS: Slide Review Reflex No
[2022-06-19 07:53] LABS: Albumin* 3.3 g/dL (3.3-5.0)
[2022-06-19 07:54] LABS: Chloride* 105 mmol/L (96-114); Potassium* 4.3 mmol/L (3.6-5.1); Sodium* 134 mmol/L (135-149)
--- NOTE | 2022-06-19 07:54 | CRLHL7_ITS ---
For Patients: As a result of the Cures Act, medical imaging exams and procedure reports are released immediately into your electronic medical record. You may view this report before your referring provider. If you have questions, please contact your health care provider. HISTORY: Sepsis. TECHNIQUE: One view of the chest. COMPARISON: 06/18/2022. FINDINGS: Low lung volumes. No change in interstitial opacities with considerations including interstitial lung disease (including fibrosis), interstitial infiltrates or interstitial edema. There is no pneumothorax or pleural effusion. Heart size stable. Degenerative changes of the spine. Advanced degenerative changes of the shoulders. IMPRESSION: No significant change. Dictated by Issac Pino MD @ 06/19/2022 9:46:58 AM Dictated by: Issac Pino MD @ 06/19/2022 09:47:03 (Electronically Signed)
[2022-06-19 07:56] LABS: Aspartate Amino Transferase* 47 U/L (12-35); Bilirubin Total* 1.2 mg/dL (0.1-1.5); Carbon Dioxide* 19 mmol/L (20-32); Est. Creatinine Clearance* 46.13; Estimated Glomerular Filt Rate 73 ml/min
[2022-06-19 07:57] LABS: Alanine Aminotransferase* 28 U/L (4-50); Alkaline Phosphatase* 123 U/L (40-150); Blood Urea Nitrogen* 26 mg/dL (7-30); Calcium* 8.4 mg/dL (8.4-10.6); Glucose* 228 mg/dL (60-115)
[2022-06-19 08:14] LABS: Troponin I* 0.83 ng/mL (0.01-0.04)
[2022-06-19] MEDS: 0.9 % SODIUM CHLORIDE 500 ML 500 ML IV ×2 (08:15→11:42)
[2022-06-19 08:19] LABS: HCO3 VBG 22 mmol/L (21-28); PCO2 VBG 37 mmHG (40-50); PO2 VBG 31.2 mmHG (25-47); pH VBG 7.38 (7.32-7.43)
--- NOTE | 2022-06-19 08:23 | PC.NURSE ---
trop 0.83 md is aware
[2022-06-19 08:24] LABS: C Reactive Protein* 8.8 mg/dL (0.5-1.0)
[2022-06-19 08:39] LABS: Procalcitonin* 5.89 ng/mL (<0.50)
[2022-06-19] MEDS: ACETAMINOPHEN 650 MG SUPP PR ×2 (08:48→17:38)
[2022-06-19] MEDS: SODIUM CHLORIDE 0.9 % (FLUSH) 10 ML SYRINGE 5 ML IVF ×2 (10:47→17:29)
--- NOTE | 2022-06-19 11:54 | OT.PDPN ---
Pt not evaluated today due to his current status. His RN reported to OT/PT to place him on hold to due to his current unstable medical status. Plan to follow up tomorrow.
--- NOTE | 2022-06-19 12:27 | PT.IPDN ---
Pt not appropriate to be seen today per charge nurse. Will re-check pt status tomorrow.
--- NOTE | 2022-06-19 13:35 | P.IMPN_ITS ---
Progress Note: A&P Assessment and plan (1) Sepsis associated hypotension: Problem details: -source unsure; UTI with staph? getting CT CAP this afternoon, fluid bolus. careful monitoring of I/O due to severe . echo done today (no vegetation; given limited views) -continue vanc and zosyn -blood and urine cultures monitored. Status: Acute (2) Elevated troponin: Problem details: NSTEMI - treat hypotension and underlying infection. Status: Acute (3) Lactic acidosis: Problem details: continue to monitor and fluid bolus carefully. Status: Acute (4) Aortic stenosis: Problem details: same degree of disease it appears no obvious valve vegatations. TTE today: Final Impressions: 1. Normal left ventricular size, mildly increased wall thickness, normal global systolic function, calculated EF of 74 %. 2. Right ventricular cavity size is normal, global systolic RV function is normal. 3. The aortic valve is sclerotic and calcified, moderate stenosis and mild to moderate regurgitation. The aortic valve peak velocity is 3.7 m/s, the peak gradient is 54 mmHg, and the mean gradient is 28 mmHg. The aortic valve area is 0.94 cm?? with a dimensionless index of 0.33. The stroke volume index is 40.6 ml/m??. 4. The mitral valve is sclerotic, mild to moderate mitral regurgitation. 5. The inferior vena cava is dilated, respiratory size variation less than 50%. 6. 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 Last TTE 02/2022 Final Impressions: 1. Normal LV size, moderately increased wall thickness, hyperdynamic global systolic function with an estimated EF of 70 - 75%. 2. The aortic valve is calcified, sclerotic and not well visualized, moderate to severe stenosis and mild regurgitation. The aortic valve peak velocity is 4.3 m/s, the peak gradient is 74 mmHg, and the mean gradient is 44 mmHg. The aortic valve area is 1.14 cm?? with a dimensionless index of 0.37. The stroke volume index is 62.0 ml/m??. 3. The mitral valve is sclerotic, mild mitral regurgitation. Mild to moderate mitral stenosis with a mean diastolic gradient of 5.1 mm Hg at a heart rate of 93 bpm. Status: Acute (5) Interstitial lung disease: Problem details: follows with Pulmonology at [facility] Status: Acute (6) Immunosuppressed status: Problem details: Hydroxychloroquine Status: Acute (7) Dementia: Status: Acute (8) Type 2 diabetes mellitus: Problem details: On Glipizide and Metformin, was on insulin until 05/2022, last A1C 6.3 04/2022 allow mild hyperglycemia; SSI Status: Acute Subjective Date Seen: 06/19/22 Interval history: Daily Progress Note - Hospital Medicine Day #: 2, CCU level care CC: sepsis with gram pos bacteremia; altered mental status OVERNIGHT UPDATES FROM STAFF & MED, LAB, IMAGING UPDATES -blood cultures positive this morning at 5:00 a.m. -unresponsive; holding sats at 90-91% -febrile -vanc q 24 hours (7 pm at night) -zosyn -source? UTI (gram positive?), intrabdominal source? CT ORDERED Hypotensive 80s systolic, 40s diastolic Pulse less than 100 but has been as high as 107 Febrile to 103 Mildly tachypneic On 2 L nasal cannula CBC reveals and increasing white blood cell count. Hemoglobin is 9.2 this morning, 8.5 this afternoon PH is stable Bicarb is 19, sodium mildly depressed at 134. Improved in the afternoon Lactate generally improving but still elevated, status post 2 boluses this morning. Lactate improved into the afternoon. Troponin generally increasing 0.11 up to 0.83 a now over 1.0. Soft blood pressures. CRP climbing Procalcitonin 5.89 up to 12.2 Single-view chest x-ray, portable no significant change from known interstitial findings gram pos cocci in both bottles and urine ICU CARE SYSTEMS BASED ASSESSMENT/PLAN -MAP of 65 is goal. pt does not want pressors. use of fluid boluses, mindful of severe , pursued. VENTILATOR/NONINVASIVE OXYGEN SUPPORT: NC oxygen only IMAGING: -CXR - CT CAP ordered in the afternoon LINES: -CENTRAL - n/a -RG - draining -NG - n/a -DRAINS - n/a -GTT - n/a -CHEST TUBE n/a ANTIBIOTICS/PRESSORS/SEDATION/FLUIDS/CV: Vanc day 2 Zosyn day 2 NEURO: -obtunded CARDIOVASCULAR: -normal sinus rhythm, non STEMI versus demand ischemia noted. Very soft blood pressures. I cannot administer a beta-madina IV. Patient is not coherent enough for oral intake bus holding off on Plavix or aspirin or a statin. Rhythm is holding in normal sinus. We will continue to treat the underlying disorder. RESPIRATORY: -mild hypoxic respiratory failure, requiring nasal cannula oxygen. PH maintained. GI: -will need IV Protonix RENAL/ELECTROLYTES: -renal function intact, electrolytes normal ID: Staph species in both blood cultures and urine culture, chest abdomen pelvis imaging pending. Broad-spectrum antibiotics being administered. ENDOCRINE: Will trend blood sugars Sodium and potassium are being monitored. HEMATOLOGY: Hemoglobin is falling, currently 8.5 WOUNDS/INJURIES: Not applicable NUTRITION: Currently not applicable PROPHYLAXIS: VT prophylaxis with Lovenox DISPOSITION: Seriously guarded. TOTAL CRITICAL CARE TIME 60 MINUTES CARING FOR PATIENT, TO INCLUDE CARE TEAM ORDERS, INVESTIGATIONS, DISCUSSION WITH SPECIALISTS, FAMILIES. Review of Systems: OBTUNDED Objective: very obtunded; sternal rub will get his eyes to flutter momentarily Vitals: see above Lungs: rhonchi but no wheeze or accessory muscle use Cardiac: 4/6 flow murmur - holosystolic Disposition/Potential discharge - Likely to return to previous living situation. Total time is 60 minutes with greater than 50% spent in counseling and coordination of care. Family care conference at the bedside with daughter and regarding guarded status and care goals. Exam Const: Vital Signs, click to edit/add: Vital Signs - 24 hr 06/18/22 16:35 06/18/22 18:40 06/18/22 19:37 Temperature 99.6 F 102.4 F H 101.7 F H Pulse Rate Pulse Rate [Left R adial] Pulse Rate [Right Pulse Oximeter] 106 H Respiratory Rate 18 Blood Pressure Blood Pressure [Ri ght Arm] Blood Pressure [Ri ght Upper Arm] 128/75 Pulse Oximetry 95 Oxygen Delivery Me thod Room Air Oxygen Flow Rate 06/18/22 17:07 06/18/22 17:30 06/18/22 20:03 Temperature 102.4 F H Pulse Rate 122 H Pulse Rate [Left R adial] Pulse Rate [Right Pulse Oximeter] Respiratory Rate 22 Blood Pressure 137/110 H Blood Pressure [Ri ght Arm] Blood Pressure [Ri ght Upper Arm] Pulse Oximetry 93 92 90 Oxygen Delivery Me thod Room Air Oxygen Flow Rate 06/18/22 20:06 06/18/22 18:30 06/18/22 19:30 Temperature 101.7 F H Pulse Rate 122 H 110 H Pulse Rate [Left R adial] Pulse Rate [Right Pulse Oximeter] Respiratory Rate 13 20 Blood Pressure 158/68 H 110/49 L Blood Pressure [Ri ght Arm] Blood Pressure [Ri ght Upper Arm] Pulse Oximetry 92 92 91 Oxygen Delivery Me thod Oxygen Flow Rate 06/18/22 20:30 06/18/22 21:36 06/18/22 21:54 Temperature 101 F H 99.3 F Pulse Rate 107 H Pulse Rate [Left R adial] 100 Pulse Rate [Right Pulse Oximeter] Respiratory Rate 18 16 Blood Pressure 86/44 L Blood Pressure [Ri ght Arm] 86/43 L Blood Pressure [Ri ght Upper Arm] Pulse Oximetry 90 93 93 Oxygen Delivery Me thod Room Air Oxygen Flow Rate 06/18/22 21:55 06/18/22 21:53 06/18/22 21:58 Temperature Pulse Rate Pulse Rate [Left R adial] Pulse Rate [Right Pulse Oximeter] Respiratory Rate 16 Blood Pressure Blood Pressure [Ri ght Arm] Blood Pressure [Ri ght Upper Arm] Pulse Oximetry 93 93 93 Oxygen Delivery Me thod Room Air Room Air Oxygen Flow Rate 06/18/22 22:05 06/18/22 22:45 06/18/22 23:26 Temperature 99.2 F Pulse Rate 99 Pulse Rate [Left R adial] 98 98 Pulse Rate [Right Pulse Oximeter] Respiratory Rate 16 16 Blood Pressure Blood Pressure [Ri ght Arm] 84/51 L Blood Pressure [Ri ght Upper Arm] Pulse Oximetry 91 Oxygen Delivery Me thod Room Air Oxygen Flow Rate 06/19/22 03:00 06/19/22 04:30 06/19/22 07:44 Temperature 98.4 F Pulse Rate 107 H Pulse Rate [Left R adial] 104 H Pulse Rate [Right Pulse Oximeter] Respiratory Rate 20 Blood Pressure Blood Pressure [Ri ght Arm] 123/81 94/38 L Blood Pressure [Ri ght Upper Arm] Pulse Oximetry 94 Oxygen Delivery Me thod Room Air Oxygen Flow Rate 06/19/22 07:44 06/19/22 07:00 06/19/22 08:00 Temperature 101.3 F H Pulse Rate Pulse Rate [Left R adial] 95 96 Pulse Rate [Right Pulse Oximeter] Respiratory Rate 26 H 24 Blood Pressure Blood Pressure [Ri ght Arm] 102/51 L Blood Pressure [Ri ght Upper Arm] Pulse Oximetry 90 91 Oxygen Delivery Me thod Room Air Oxygen Flow Rate 06/19/22 08:30 06/19/22 09:00 Temperature 99.6 F Pulse Rate Pulse Rate [Left R adial] 96 97 Pulse Rate [Right Pulse Oximeter] Respiratory Rate 24 24 Blood Pressure Blood Pressure [Ri ght Arm] 82/39 L 87/44 L Blood Pressure [Ri ght Upper Arm] Pulse Oximetry 93 93 Oxygen Delivery Me thod Nasal Cannula Nasal Cannula Oxygen Flow Rate 2 2 Labs Labs: Laboratory Results - last 24 hr 06/18/22 06/18/22 06/18/22 17:15 17:22 17:22 WBC 10.16 RBC 3.62 L Hgb 11.0 L Hct 34.6 L MCV 96 MCH 30 MCHC 32 RDW Coeff of Domitila 15.5 Plt Count 100 L Neut % (Auto) 92.6 H Lymph % (Auto) 2.8 L [place] % (Auto) 4.0 Eos % (Auto) 0.0 Baso % (Auto) 0.0 Neut # (Auto) 9.40 H Lymph # (Auto) 0.30 L [place] # (Auto) 0.40 Eos # (Auto) 0.00 Baso # (Auto) 0.00 Abs Immat Gran (auto) 0.06 ESR 94 H VBG pH VBG pCO2 VBG pO2 VBG HCO3 Sodium Potassium Chloride Carbon Dioxide BUN Creatinine Estimated Creat Clear Estimated GFR Glucose Lactate Calcium Total Bilirubin Direct Bilirubin AST ALT Alkaline Phosphatase Troponin I C-Reactive Protein Total Protein Albumin Lipase Procalcitonin Urine Color Yellow Urine Appearance Cloudy A Urine pH 5.0 Ur Specific [place] 1.015 Urine Protein Negative Urine Glucose (UA) 2+ A Urine Ketones Trace A Urine Blood Trace-lysed A Urine Nitrite Positive A Urine Bilirubin Negative Urine Urobilinogen 0.2 Ur Leukocyte Esterase Negative Urine RBC 0-2 Urine WBC 10-25 A Urine WBC Clumps None Ur Squamous Epith Cells None Urine Bacteria Many A SARS-CoV-2 (PCR) Influenza Type A (PCR) Influenza Type B (PCR) 06/18/22 06/18/22 06/18/22 17:22 17:22 17:32 WBC RBC Hgb Hct MCV MCH MCHC RDW Coeff of Domitila Plt Count Neut % (Auto) Lymph % (Auto) [place] % (Auto) Eos % (Auto) Baso % (Auto) Neut # (Auto) Lymph # (Auto) [place] # (Auto) Eos # (Auto) Baso # (Auto) Abs Immat Gran (auto) ESR VBG pH 7.337 VBG pCO2 44 VBG pO2 27.9 VBG HCO3 24 Sodium 131 L Potassium 4.3 Chloride 95 L Carbon Dioxide 22 BUN 20 Creatinine 0.7 Estimated Creat Clear 45.93 Estimated GFR 90 Glucose 371 H* Lactate 5.5 H* Calcium 9.4 Total Bilirubin 0.8 Direct Bilirubin 0.2 AST 39 H ALT 29 Alkaline Phosphatase 197 H Troponin I 0.11 H* C-Reactive Protein 5.1 H Total Protein 8.5 H Albumin 4.2 Lipase 55 Procalcitonin Urine Color Urine Appearance Urine pH Ur Specific [place] Urine Protein Urine Glucose (UA) Urine Ketones Urine Blood Urine Nitrite Urine Bilirubin Urine Urobilinogen Ur Leukocyte Esterase Urine RBC Urine WBC Urine WBC Clumps Ur Squamous Epith Cells Urine Bacteria SARS-CoV-2 (PCR) Influenza Type A (PCR) Influenza Type B (PCR) 06/18/22 06/18/22 06/18/22 17:44 21:45 21:45 WBC RBC Hgb Hct MCV MCH MCHC RDW Coeff of Domitila Plt Count Neut % (Auto) Lymph % (Auto) [place] % (Auto) Eos % (Auto) Baso % (Auto) Neut # (Auto) Lymph # (Auto) [place] # (Auto) Eos # (Auto) Baso # (Auto) Abs Immat Gran (auto) ESR VBG pH VBG pCO2 VBG pO2 VBG HCO3 Sodium Potassium Chloride Carbon Dioxide BUN Creatinine Estimated Creat Clear Estimated GFR Glucose Lactate 3.6 H Calcium Total Bilirubin Direct Bilirubin AST ALT Alkaline Phosphatase Troponin I 0.40 H* C-Reactive Protein Total Protein Albumin Lipase Procalcitonin 5.89 H Urine Color Urine Appearance Urine pH Ur Specific [place] Urine Protein Urine Glucose (UA) Urine Ketones Urine Blood Urine Nitrite Urine Bilirubin Urine Urobilinogen Ur Leukocyte Esterase Urine RBC Urine WBC Urine WBC Clumps Ur Squamous Epith Cells Urine Bacteria SARS-CoV-2 (PCR) Negative SARS-CoV-2 Influenza Type A (PCR) Negative PCR FLU A Influenza Type B (PCR) Negative PCR FLU B 06/19/22 06/19/22 06/19/22 06:43 06:43 06:43 WBC 11.57 H RBC 2.98 L Hgb 9.2 L Hct 28.5 L MCV 96 MCH 31 MCHC 32 RDW Coeff of Domitila 15.7 H Plt Count 77 L Neut % (Auto) 93.3 H Lymph % (Auto) 1.5 L [place] % (Auto) 4.8 Eos % (Auto) 0.0 Baso % (Auto) 0.1 Neut # (Auto) 10.80 H Lymph # (Auto) 0.20 L [place] # (Auto) 0.60 Eos # (Auto) 0.00 Baso # (Auto) 0.00 Abs Immat Gran (auto) 0.04 ESR VBG pH 7.38 VBG pCO2 37 L VBG pO2 31.2 VBG HCO3 22 Sodium 134 L Potassium 4.3 Chloride 105 Carbon Dioxide 19 L BUN 26 Creatinine 1.0 Estimated Creat Clear 46.13 Estimated GFR 73 Glucose 228 H Lactate 3.1 H Calcium 8.4 Total Bilirubin 1.2 Direct Bilirubin AST 47 H ALT 28 Alkaline Phosphatase 123 Troponin I 0.83 H* C-Reactive Protein 8.8 H Total Protein 7.0 Albumin 3.3 Lipase Procalcitonin 12.20 H Urine Color Urine Appearance Urine pH Ur Specific [place] Urine Protein Urine Glucose (UA) Urine Ketones Urine Blood Urine Nitrite Urine Bilirubin Urine Urobilinogen Ur Leukocyte Esterase Urine RBC Urine WBC Urine WBC Clumps Ur Squamous Epith Cells Urine Bacteria SARS-CoV-2 (PCR) Influenza Type A (PCR) Influenza Type B (PCR)
[2022-06-19 14:26] LABS: HCO3 VBG 21 mmol/L (21-28); Ionized Calcium* 1.11 mmol/L (1.11-1.30); Lactate* 1.6 mmol/L (0.5-1.9); PCO2 VBG 36 mmHG (40-50); PO2 VBG 71.5 mmHG (25-47); pH VBG 7.371 (7.32-7.43)
[2022-06-19 14:29] LABS: Hemoglobin* 8.5 gm/dL (13.5-17.5)
[2022-06-19 14:44] LABS: Chloride* 108 mmol/L (96-114); Potassium* 3.4 mmol/L (3.6-5.1); Sodium* 137 mmol/L (135-149)
[2022-06-19 14:47] LABS: Blood Urea Nitrogen* 28 mg/dL (7-30); Calcium* 7.9 mg/dL (8.4-10.6); Carbon Dioxide* 20 mmol/L (20-32); Creatinine* 0.9 mg/dL (0.5-1.5); Est. Creatinine Clearance* 46.13; Estimated Glomerular Filt Rate 83 ml/min; Glucose* 221 mg/dL (60-115); Magnesium* 1.5 mg/dL (1.5-2.6)
[2022-06-19 15:02] LABS: Troponin I* 1.07 ng/mL (0.01-0.04)
[2022-06-19] MEDS: 0.9 % SODIUM CHLORIDE 1000 ml 1,000 ML 100 ML IV (17:43)
[2022-06-19] MEDS: ENOXAPARIN 40 MG/0.4 ML INJ SUBCUT (20:46)
[2022-06-20] VITALS (9 sets, daily range): BP systolic 128–157; BP diastolic 62–77; PULSE 96–111; RESP 12–18; TEMP 36.4–37.4; O2SAT 90–93
[2022-06-20] MEDS: PIPERACILLIN/TAZOBACTAM 3.375 GM in 0.9 % SODIUM CHLORIDE Mini-bag 100 ML IVPB ×4 (00:30→18:45)
[2022-06-20] MEDS: MORPHINE 4 MG/ML INJ IVP ×3 (02:17→18:57)
[2022-06-20] MEDS: 0.9 % SODIUM CHLORIDE 1000 ml 1,000 ML 100 ML IV (04:28)
--- NOTE | 2022-06-20 04:53 | PC.NURSE ---
Pt BP much improved compared to previous night. BP @ 0300 128/62. Pt remains nonverbal and unresponsive. Afebrile all night for this RN
[2022-06-20] MEDS: LORazepam 2 MG/ML inj 0.5 MG IVP ×2 (05:14→13:57)
[2022-06-20 07:17] LABS: HCO3 VBG 20 mmol/L (21-28); PCO2 VBG 36 mmHG (40-50); PO2 VBG 75.1 mmHG (25-47)
[2022-06-20 07:27] LABS: Hematocrit 31.6 % (37.0-53.0); Mean Corpuscular HGB Conc 32 gm/dL (32-36); Mean Corpuscular Hemoglobin 30 pg (26-34); Mean Corpuscular Volume 96 fL (80-100); Platelet Count* 72 K/uL (140-440); Red Blood Count 3.31 m/uL (4.30-5.90); White Blood Count* 8.66 K/uL (4.50-11.00)
--- NOTE | 2022-06-20 07:31 | CRLHL7_ITS ---
For Patients: As a result of the Century Cures Act, medical imaging exams and procedure reports are released immediately into your electronic medical record. You may view this report before your referring provider. If you have questions, please contact your health care provider. INDICATION: Staph bacteremia of unknown source. Patient unresponsive. COMPARISON: A chest CT dated December 01, 2020. No prior abdomen and pelvis CTs. TECHNIQUE: CT examination of the chest, abdomen and pelvis was performed following the uneventful intravenous administration of 68 cc of Isovue 370. Thin section axial images were obtained from the thoracic inlet through the pubic symphysis. Oral contrast was not administered. Sagittal and coronal reformatted imaging was performed. Please note that all CT scans at this facility use dose modulation, iterative reconstruction, and/or weight-based dosing when appropriate to reduce radiation dose to as low as reasonably achievable. FINDINGS: CHEST: Substantially limited by motion The heart size is normal. Prominent mediastinal lymph nodes are likely reactive. Vascular and valvular calcifications noted. Small pericardial effusion. Abnormal lungs. Based on review of the prior study, there is a background of significant interstitial fibrosis, basilar predominant. However, the current exam, there is superimposed patchy multifocal ground-glass and focal airspace opacity at both bases. Small effusions. New multifocal ground-glass could be inflammatory but I suspect edema. The basilar airspace process is either atelectatic or inflammatory. LIVER/BILIARY SYSTEM:The liver is normal in size.The gallbladder is distended and there are stones. There may be pericholecystic fluid or pericholecystic inflammatory change though this area is blurred by motion. Recommend ultrasound to exclude acute cholecystitis. ADRENALS: Normal KIDNEYS, URETERS and BLADDER:The kidneys appear normal. No visible mass, calculus or hydronephrosis. The ureters and bladder as visualized appear normal. Wills catheter in the bladder. SPLEEN:Normal appearance. PANCREAS: Appears normal. RETROPERITONEUM and MESENTERY: There is no mass, adenopathy or aortic aneurysm. Atherosclerotic vascular calcification GASTROINTESTINAL SYSTEM: There is no evidence of diverticulitis, colitis, mechanical obstruction, or appendicitis. The small bowel as visualized appears normal.Fecal retention. Diverticulosis. PELVIS: Mild free fluid. Poor visualization due to motion and streak from right hip arthroplasty. OSSEOUS STRUCTURES and ABDOMINAL WALL: No destructive process of bone.Findings of portal hypertension. Specifically, there is mild ascites, a recanalized umbilical vein and caput medusa. OTHER: No free fluid or free air. I discussed this case with Dr. Kelly Jj at 10:55 a.m. on June 20, 2022 IMPRESSION: 1. CHEST: Substantially limited by motion. Pre cystic pattern of significant interstitial fibrosis, basilar predominant. Superimposed multifocal ground-glass could be inflammatory or congestive. Small effusions. Bibasilar airspace process could be atelectasis, aspiration or pneumonia visualization due to motion but suspect surrounding inflammatory change. Recommend ultrasound to exclude acute cholecystitis. Evidence of portal hypertension. Mild ascites. Other nonacute appearing findings as above Please note that all CT scans at this facility use dose modulation, iterative reconstruction, and/or weight-based dosing when appropriate to reduce radiation dose to as low as reasonably achievable. Dictated by Abdirashid Smart MD @ 06/20/2022 10:59:15 AM (Electronically Signed)
[2022-06-20 07:32] LABS: Slide Review Reflex No
[2022-06-20 07:47] LABS: INR 1.32 (0.91-1.10); Prothrombin Time 16.8 Seconds
[2022-06-20] MEDS: 5 % DEXTROSE IN LAC RINGER'S 1,000 ML 125 ML IV ×2 (07:59→17:11)
[2022-06-20] MEDS: LACTATED RINGERS 1000 ML 500 ML IV (08:02)
[2022-06-20 08:05] LABS: Chloride* 112 mmol/L (96-114); Potassium* 3.8 mmol/L (3.6-5.1); Sodium* 139 mmol/L (135-149)
[2022-06-20 08:08] LABS: Aspartate Amino Transferase* 65 U/L (12-35); Carbon Dioxide* 19 mmol/L (20-32); Creatinine* 0.8 mg/dL (0.5-1.5); Est. Creatinine Clearance* 46.13; Estimated Glomerular Filt Rate 86 ml/min
[2022-06-20 08:09] LABS: Alanine Aminotransferase* 38 U/L (4-50); Alkaline Phosphatase* 111 U/L (40-150); Blood Urea Nitrogen* 29 mg/dL (7-30); Calcium* 8.1 mg/dL (8.4-10.6); Glucose* 149 mg/dL (60-115); Magnesium* 1.6 mg/dL (1.5-2.6); Total Protein* 6.7 g/dL (6.0-8.3)
[2022-06-20 08:21] LABS: Troponin I* 0.75 ng/mL (0.01-0.04)
--- NOTE | 2022-06-20 08:22 | PC.NURSE ---
Critical lab notification troponin 0.75. Dr. Jj aware.
[2022-06-20 08:23] LABS: C Reactive Protein* 19.2 mg/dL (0.5-1.0)
[2022-06-20 08:39] LABS: NT Pro B Type NatriureticPept* 2070 PG/mL (0-450)
--- NOTE | 2022-06-20 10:58 | CRLHL7_ITS ---
For Patients: As a result of the Cures Act, medical imaging exams and procedure reports are released immediately into your electronic medical record. You may view this report before your referring provider. If you have questions, please contact your health care provider. INDICATION: Gram-positive sepsis. TECHNIQUE: Ultrasound abdomen limited. COMPARISON: CT chest June 20, 2022. FINDINGS: Gallbladder: Prominent gallbladder stones. Gallbladder wall is thickened measuring 5 mm. Common bile duct: 7 mm. IMPRESSION: Cholelithiasis with gallbladder wall thickening suggesting acute cholecystitis. Dictated by Andrew Aguilar MD @ 06/20/2022 1:08:13 PM (Electronically Signed)
--- NOTE | 2022-06-20 13:46 | PM.GSCN ---
History of Present Illness Consult details Date Seen: 06/20/22 Consult date: 06/20/22 Narrative: Patient presented to the emergency department 2 days earlier for altered mental status. He does have a history of dementia. Over the weekend he was found to be bacteremic, with blood cultures growing Gram-positive cocci. Patient is nonresponsive this morning, but does react to stimuli. The hospitalist has been pursuing a questionable source with CT scan of the abdomen demonstrating dilation of the gallbladder, gallstones and questionable gallbladder wall thickening. An ultrasound was obtained, which did demonstrate some mild gallbladder wall thickening, again the presence of stones and dilation. His past medical history is positive for aortic stenosis and interstitial lung disease. Over the weekend he demonstrated EKG changes and elevations in his strokes, consistent with an NSTEMI. He has been intermittently hypotensive and requiring nasal cannula to maintain his oxygenation. Unsure whether the patient is exhibiting abdominal pain or other symptoms, given his incoherence. Review of Systems Status of ROS: Reports: unobtainable due to medical condition and unobtainable due to mental status [facility] Medical History Aortic stenosis BPH loc w urin obs/LUTS Dementia GERD (gastroesophageal reflux disease) Hyperlipidemia Immunosuppressed status Interstitial lung disease Normocytic anemia Osteoporosis Sjogrens syndrome Type 2 diabetes mellitus Surgical History History of hip replacement Social History Smoking Status: Never smoker Do you use any of these nicotine containing products: None How often do you have a drink containing alcohol: never AUDIT-C Alcohol total score: 0 Non-prescribed substance use: denies use Gender Identity: male service: No Meds Home Medications and Allergies Home Medications Medication Instructions Recorded Confirmed Type alendronate 70 mg tablet 70 mg PO Q7D 06/18/22 06/19/22 History clotrimazole-betamethasone 1 1 applic topical DAILY PRN 06/18/22 06/18/22 History %-0.05 % topical cream glipizide 10 mg tablet, extended 10 mg PO BID 06/18/22 06/18/22 History release 24 hr hydroxychloroquine 200 mg tablet 200 mg PO DAILY 06/18/22 06/18/22 History ibuprofen 400 mg tablet 400 mg PO Q6H PRN fever or pain 06/18/22 06/18/22 History lisinopril 2.5 mg tablet 2.5 mg PO DAILY 06/18/22 06/18/22 History metformin 1,000 mg tablet 1,000 mg PO BID 06/18/22 06/18/22 History niacin 500 mg tablet,extended 500 mg PO HS 06/18/22 06/18/22 History release 24 hr pantoprazole 20 mg tablet,delayed 20 mg PO DAILY 06/18/22 06/18/22 History release tamsulosin 0.4 mg capsule 0.8 mg PO DAILY 06/18/22 06/19/22 History acetaminophen 325 mg tablet (Mapap 650 mg PO Q6H PRN 06/19/22 06/19/22 History (acetaminophen)) ascorbic acid (vitamin C) 1,000 mg 1 g PO DAILY 06/19/22 06/19/22 History capsule cholecalciferol (vitamin D3) 50 50 mcg PO DAILY 06/19/22 06/19/22 History mcg (2,000 unit) capsule ferrous gluconate 324 mg (37.5 mg 324 mg PO DAILY 06/19/22 06/19/22 History iron) tablet methocarbamol 500 mg tablet 500 mg PO Q6H PRN 06/19/22 06/19/22 History cndekpefosii-pnpgbtaf-vpknyx tablet 1 tab PO DAILY 06/19/22 06/19/22 History plant stanol oren 450 mg capsule 450 mg PO HS 06/19/22 06/19/22 History (Cholest Off Plus) Allergies Allergy/AdvReac Type Severity Reaction Status Date / Time ciprofloxacin [From Cipro] Allergy Rash Verified 06/20/22 09:31 Exam Narrative: Exam Narrative: General: Lying in bed in moderate distress, easily agitated. Eyes are remaining closed with patient not answering questions appropriately. Pulmonary: Equal breath rise bilaterally, nasal cannula in place CV: Well perfused, tachycardic abdomen: Soft, nondistended. Difficult exam secondary to patient agitation, no obvious guarding or rebound. significant umbilical varices on exam. Const: Vital Signs, click to edit/add: Vital Signs - 24 hr 06/19/22 15:00 06/19/22 15:00 06/19/22 15:00 Temperature 98.5 F Pulse Rate 73 Pulse Rate [Left R adial] 84 84 Respiratory Rate 20 22 Blood Pressure [Ri ght Arm] 120/62 Pulse Oximetry 94 Oxygen Delivery Me thod Nasal Cannula Oxygen Flow Rate 2 06/19/22 19:34 06/19/22 22:42 06/19/22 22:44 Temperature 99.4 F 98.4 F Pulse Rate 109 H Pulse Rate [Left R adial] 108 H 104 H Respiratory Rate 16 Blood Pressure [Ri ght Arm] 104/46 L 111/53 L Pulse Oximetry 99 92 Oxygen Delivery Me thod Nasal Cannula Nasal Cannula Oxygen Flow Rate 2 1 06/19/22 22:45 06/19/22 22:46 06/19/22 22:48 Temperature Pulse Rate 109 H Pulse Rate [Left R adial] 104 H Respiratory Rate 16 Blood Pressure [Ri ght Arm] Pulse Oximetry 95 Oxygen Delivery Me thod Oxygen Flow Rate 06/20/22 02:40 06/20/22 02:41 06/20/22 07:00 Temperature 98.0 F Pulse Rate Pulse Rate [Left R adial] 104 H 105 H Respiratory Rate 16 18 Blood Pressure [Ri ght Arm] 128/62 Pulse Oximetry 93 93 Oxygen Delivery Me thod Nasal Cannula Oxygen Flow Rate 1 06/20/22 07:12 06/20/22 07:00 06/20/22 11:00 Temperature 99.3 F 98.2 F Pulse Rate 111 H Pulse Rate [Left R adial] 111 H 107 H Respiratory Rate 12 16 Blood Pressure [Ri ght Arm] 132/71 157/75 H Pulse Oximetry 93 91 Oxygen Delivery Me thod Nasal Cannula Nasal Cannula Oxygen Flow Rate 1 1 06/20/22 11:00 Temperature Pulse Rate Pulse Rate [Left R adial] 104 H Respiratory Rate 16 Blood Pressure [Ri ght Arm] Pulse Oximetry Oxygen Delivery Me thod Oxygen Flow Rate Results Labs Labs: Abnormal lab results 06/19/22 06/19/22 06/19/22 Range/Units 14:19 14:19 14:19 RBC (4.30-5.90) m/uL Hgb 8.5 L (13.5-17.5) gm/dL Hct (37.0-53.0) % Plt Count (140-440) K/uL INR (0.91-1.10) VBG pCO2 36 L (40-50) mmHG VBG pO2 71.5 H (25-47) mmHG VBG HCO3 (21-28) mmol/L Potassium 3.4 L (3.6-5.1) mmol/L Carbon Dioxide (20-32) mmol/L Glucose 221 H (60-115) mg/dL Calcium 7.9 L (8.4-10.6) mg/dL AST (12-35) U/L Troponin I 1.07 H* (0.01-0.04) ng/mL C-Reactive Protein (0.5-1.0) mg/dL NT-Pro-B Natriuret Pep (0-450) PG/mL Albumin (3.3-5.0) g/dL Procalcitonin (<0.50) ng/mL 06/20/22 06/20/22 06/20/22 Range/Units 06:50 06:50 06:50 RBC 3.31 L (4.30-5.90) m/uL Hgb 10.0 L (13.5-17.5) gm/dL Hct 31.6 L (37.0-53.0) % Plt Count 72 L (140-440) K/uL INR 1.32 H (0.91-1.10) VBG pCO2 (40-50) mmHG VBG pO2 (25-47) mmHG VBG HCO3 (21-28) mmol/L Potassium (3.6-5.1) mmol/L Carbon Dioxide 19 L (20-32) mmol/L Glucose 149 H (60-115) mg/dL Calcium 8.1 L (8.4-10.6) mg/dL AST 65 H (12-35) U/L Troponin I 0.75 H* (0.01-0.04) ng/mL C-Reactive Protein 19.2 H (0.5-1.0) mg/dL NT-Pro-B Natriuret Pep 2070 H (0-450) PG/mL Albumin 3.0 L (3.3-5.0) g/dL Procalcitonin 9.60 H (<0.50) ng/mL 06/20/22 Range/Units 06:50 RBC (4.30-5.90) m/uL Hgb (13.5-17.5) gm/dL Hct (37.0-53.0) % Plt Count (140-440) K/uL INR (0.91-1.10) VBG pCO2 36 L (40-50) mmHG VBG pO2 75.1 H (25-47) mmHG VBG HCO3 20 L (21-28) mmol/L Potassium (3.6-5.1) mmol/L Carbon Dioxide (20-32) mmol/L Glucose (60-115) mg/dL Calcium (8.4-10.6) mg/dL AST (12-35) U/L Troponin I (0.01-0.04) ng/mL C-Reactive Protein (0.5-1.0) mg/dL NT-Pro-B Natriuret Pep (0-450) PG/mL Albumin (3.3-5.0) g/dL Procalcitonin (<0.50) ng/mL Diabetes panel 06/19/22 06/20/22 Range/Units 14:19 06:50 Sodium 137 139 (135-149) mmol/L Potassium 3.4 L 3.8 (3.6-5.1) mmol/L Chloride 108 112 (96-114) mmol/L Carbon Dioxide 20 19 L (20-32) mmol/L BUN 28 29 (7-30) mg/dL Creatinine 0.9 0.8 (0.5-1.5) mg/dL Glucose 221 H 149 H (60-115) mg/dL Calcium 7.9 L 8.1 L (8.4-10.6) mg/dL AST 65 H (12-35) U/L ALT 38 (4-50) U/L Alkaline Phosphatase 111 (40-150) U/L Total Protein 6.7 (6.0-8.3) g/dL Albumin 3.0 L (3.3-5.0) g/dL Calcium panel 06/19/22 06/19/22 06/20/22 Range/Units 14:19 14:19 06:50 Calcium 7.9 L 8.1 L (8.4-10.6) mg/dL Ionized Calcium Ron 1.11 (1.11-1.30) mmol/L Albumin 3.0 L (3.3-5.0) g/dL Pituitary panel 06/19/22 06/20/22 Range/Units 14:19 06:50 Sodium 137 139 (135-149) mmol/L Potassium 3.4 L 3.8 (3.6-5.1) mmol/L Chloride 108 112 (96-114) mmol/L Carbon Dioxide 20 19 L (20-32) mmol/L BUN 28 29 (7-30) mg/dL Creatinine 0.9 0.8 (0.5-1.5) mg/dL Glucose 221 H 149 H (60-115) mg/dL Calcium 7.9 L 8.1 L (8.4-10.6) mg/dL Adrenal panel 06/19/22 06/20/22 Range/Units 14:19 06:50 Sodium 137 139 (135-149) mmol/L Potassium 3.4 L 3.8 (3.6-5.1) mmol/L Chloride 108 112 (96-114) mmol/L Carbon Dioxide 20 19 L (20-32) mmol/L BUN 28 29 (7-30) mg/dL Creatinine 0.9 0.8 (0.5-1.5) mg/dL Glucose 221 H 149 H (60-115) mg/dL Calcium 7.9 L 8.1 L (8.4-10.6) mg/dL Total Bilirubin 1.0 (0.1-1.5) mg/dL AST 65 H (12-35) U/L ALT 38 (4-50) U/L Alkaline Phosphatase 111 (40-150) U/L Total Protein 6.7 (6.0-8.3) g/dL Albumin 3.0 L (3.3-5.0) g/dL All other labs normal. Assessment and Plan Assessment and plan (1) Cholelithiasis: Status: Acute Plan Patient is an 86-year-old male, currently hospitalized for altered mental status and associated bacteremia. Afebrile overnight and this morning. Was hypotensive yesterday with pressures improved and maintaining maps greater than 65. His blood cultures have grown out Gram-positive cocci Staph, with no source yet identified. A CT scan of the abdomen/ pelvis was performed which demonstrated some gallbladder wall thickening, distention of gallbladder and a few stones. On my read no significant surrounding inflammation is appreciated. Patient also has demonstrated prominent umbilical varices, with a known history of portal hypertension. Abdominal ultrasound was performed, which confirmed findings of gallbladder wall distension in the presence of stones. No evidence of pericholecystic fluid and common bile duct within normal limits. His labs show a mildly elevated AST ( 65) total bilirubin 1.0 and alkaline phosphatase within normal limits. He does have an elevated CRP ( 19.2) and elevated BNP ( 2070). He is currently be treating with broad-spectrum antibiotics, Zosyn and vancomycin. Low suspicion at this time for acute cholecystitis as the cause of his sepsis. Would expect his bacteremia to be secondary to gram negative bacteria if the gallbladder was the source verses the gram-positive cocci that are growing. He does demonstrate gallbladder wall thickening on imaging, but with normal LFTS and no significant surrounding inflammation or lennie cholecystitic fluid. Suspect that the gallbladder wall thickening is secondary to increased preload, from either cardiac disease or his known portal hypertension. If further investigation is warranted could consider a HIDA scan to rule in/out obstruction. I discussed this with the patient's family at bedside, as well as the hospitalist. I also reviewed with them that if HIDA scan does demonstrate obstruction patient would be a high risk surgically candidate and not safe to proceed to the operating room for cholecystectomy. I would instead recommend a cholecystostomy tube, which would require transfer at another hospital. All questions and concerns were answered, with patient's family deciding to proceed with just IV antibiotics and continued observation at this time. Appreciate the consultation. Please call with any acute clinical changes, questions or concerns.
[2022-06-20] MEDS: SODIUM CHLORIDE 0.9 % (FLUSH) 10 ML SYRINGE 5 ML IVF (13:57)
--- NOTE | 2022-06-20 14:25 | REH.PT ---
Pt not appropriate to be seen today per pt's nurse. Remains non-responsive. Will re-check pt status tomorrow.
--- NOTE | 2022-06-20 16:21 | PM.IMPN1 ---
Subjective Date Seen: 06/20/22 Interval history: Daily Progress Note - Hospital Medicine Day #: 3, CCU level care CC: sepsis with gram pos bacteremia; altered mental status OVERNIGHT UPDATES FROM STAFF & MED, LAB, IMAGING UPDATES -more agitation today. Less obtunded. CT, CAP, completed. PNA vs CHF, possible cholecystitis. ECHO yesterday, TTE, no obvious vegatation. ICU CARE SYSTEMS BASED ASSESSMENT/PLAN Vitals/MAP/Daily Weight: BP is up Noninvasive oxygen support: NC O2 1-2L Imaging: -cxr Lines: -central - n/a -floyd draining -NG n/a -drains n/a -gtt n/a -chest tube n/a Antibiotics/Pressors/Sedation/Fluids/CV: Vanc q24 dose zosyn q6 Neuro: agitated not following commands Cardiovascular: less tachy; better blood pressure. Respiratory: nc oxygen GI: PPI Renal/Electrolytes: intact renal function ID: MSSA staph aureus; blood and urine. Endocrine: DM - on ssi Hematology: CBC stable. Wounds/Injuries: n/a Nutrition: no PO intake Prophylaxis: lovenox Disposition: TBD - no transfer. is POA - keep in NF and avoid painful or heroic measures. Total Critical Care Time 60 minutes caring for patient, to include care team orders, investigations, discussion with specialists, families. Review of Systems: unable Objective: agitated or obtunded; no meaninful interaction. Vitals: no fever in 24 hours. much better blood pressure. Lungs: Clear. Cardiac: holosytolic murmur, unchanged no edema abdomen: not explicitly tender. varicosities noted. Disposition/Potential discharge - Likely to return to previous living situation. Total time is 35 minutes with greater than 50% spent in counseling and coordination of care. Exam Const: Vital Signs, click to edit/add: Vital Signs - 24 hr 06/19/22 19:34 06/19/22 22:42 06/19/22 22:44 Temperature 99.4 F 98.4 F Pulse Rate 109 H Pulse Rate [Left R adial] 108 H 104 H Respiratory Rate 16 Blood Pressure [Ri ght Arm] 104/46 L 111/53 L Pulse Oximetry 99 92 Oxygen Delivery Me thod Nasal Cannula Nasal Cannula Oxygen Flow Rate 2 1 06/19/22 22:45 06/19/22 22:46 06/19/22 22:48 Temperature Pulse Rate 109 H Pulse Rate [Left R adial] 104 H Respiratory Rate 16 Blood Pressure [Ri ght Arm] Pulse Oximetry 95 Oxygen Delivery Me thod Oxygen Flow Rate 06/20/22 02:40 06/20/22 02:41 06/20/22 07:00 Temperature 98.0 F Pulse Rate Pulse Rate [Left R adial] 104 H 105 H Respiratory Rate 16 18 Blood Pressure [Ri ght Arm] 128/62 Pulse Oximetry 93 93 Oxygen Delivery Me thod Nasal Cannula Oxygen Flow Rate 1 06/20/22 07:12 06/20/22 07:00 06/20/22 11:00 Temperature 99.3 F 98.2 F Pulse Rate 111 H Pulse Rate [Left R adial] 111 H 107 H Respiratory Rate 12 16 Blood Pressure [Ri ght Arm] 132/71 157/75 H Pulse Oximetry 93 91 Oxygen Delivery Me thod Nasal Cannula Nasal Cannula Oxygen Flow Rate 1 1 06/20/22 11:00 06/20/22 15:00 06/20/22 15:00 Temperature 97.6 F Pulse Rate Pulse Rate [Left R adial] 104 H 103 H Respiratory Rate 16 14 Blood Pressure [Ri ght Arm] 141/71 H Pulse Oximetry 90 90 Oxygen Delivery Me thod Room Air Oxygen Flow Rate 06/20/22 15:05 06/20/22 15:00 Temperature Pulse Rate 103 H Pulse Rate [Left R adial] 103 H Respiratory Rate 14 Blood Pressure [Ri ght Arm] Pulse Oximetry Oxygen Delivery Me thod Oxygen Flow Rate Labs Labs: Laboratory Results - last 24 hr 06/20/22 06/20/22 06/20/22 06:50 06:50 06:50 WBC 8.66 RBC 3.31 L Hgb 10.0 L Hct 31.6 L MCV 96 MCH 30 MCHC 32 Plt Count 72 L INR 1.32 H VBG pH VBG pCO2 VBG pO2 VBG HCO3 Sodium 139 Potassium 3.8 Chloride 112 Carbon Dioxide 19 L BUN 29 Creatinine 0.8 Estimated Creat Clear 46.13 Estimated GFR 86 Glucose 149 H Calcium 8.1 L Magnesium 1.6 Total Bilirubin 1.0 AST 65 H ALT 38 Alkaline Phosphatase 111 Troponin I 0.75 H* C-Reactive Protein 19.2 H NT-Pro-B Natriuret Pep 2070 H Total Protein 6.7 Albumin 3.0 L Procalcitonin 9.60 H 06/20/22 06:50 WBC RBC Hgb Hct MCV MCH MCHC Plt Count INR VBG pH 7.350 VBG pCO2 36 L VBG pO2 75.1 H VBG HCO3 20 L Sodium Potassium Chloride Carbon Dioxide BUN Creatinine Estimated Creat Clear Estimated GFR Glucose Calcium Magnesium Total Bilirubin AST ALT Alkaline Phosphatase Troponin I C-Reactive Protein NT-Pro-B Natriuret Pep Total Protein Albumin Procalcitonin
--- NOTE | 2022-06-20 17:20 | PM.IMPN1 ---
Progress Note: A&P Assessment and plan (1) Bacteremia due to methicillin susceptible Staphylococcus aureus (MSSA): Problem details: will consider narrowing abx, repeat bc ordered. consider steroids. source is unclear: PNA or endocarditis? Status: Acute (2) Cholelithiasis: Problem details: noted; not likely the source. Status: Acute (3) Elevated troponin: Problem details: NSTEMI - treat underlying infection. Status: Acute (4) Aortic stenosis: Problem details: same degree of disease it appears no obvious valve vegatations. TTE today: Final Impressions: 1. Normal left ventricular size, mildly increased wall thickness, normal global systolic function, calculated EF of 74 %. 2. Right ventricular cavity size is normal, global systolic RV function is normal. 3. The aortic valve is sclerotic and calcified, moderate stenosis and mild to moderate regurgitation. The aortic valve peak velocity is 3.7 m/s, the peak gradient is 54 mmHg, and the mean gradient is 28 mmHg. The aortic valve area is 0.94 cm?? with a dimensionless index of 0.33. The stroke volume index is 40.6 ml/m??. 4. The mitral valve is sclerotic, mild to moderate mitral regurgitation. 5. The inferior vena cava is dilated, respiratory size variation less than 50%. 6. 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 Last TTE 02/2022 Final Impressions: 1. Normal LV size, moderately increased wall thickness, hyperdynamic global systolic function with an estimated EF of 70 - 75%. 2. The aortic valve is calcified, sclerotic and not well visualized, moderate to severe stenosis and mild regurgitation. The aortic valve peak velocity is 4.3 m/s, the peak gradient is 74 mmHg, and the mean gradient is 44 mmHg. The aortic valve area is 1.14 cm?? with a dimensionless index of 0.37. The stroke volume index is 62.0 ml/m??. 3. The mitral valve is sclerotic, mild mitral regurgitation. Mild to moderate mitral stenosis with a mean diastolic gradient of 5.1 mm Hg at a heart rate of 93 bpm. Status: Acute (5) Portal hypertension: Problem details: from chronic lung disease; likely unchanged and giving us the findings in the gallbladder noted. Status: Acute (6) Acute respiratory failure with hypoxia: Problem details: PNA, sepsis, chronic lung disease, ARDS? continue to support. Status: Acute Subjective Date Seen: 06/20/22 Interval history: Day #: 3, CCU level care CC: MSSA sepsis, altered mental status OVERNIGHT UPDATES FROM STAFF & MED, LAB, IMAGING UPDATES -more agitated; BP improved, no fever in 24 hours. remains on minimal oxygen. Labs all point to improving picture. WBC is downtrending; HGB up, platelets in the 70's but not new. blood gas stable. chemistries reassuring. troponin peaked. procalcitonin downtrending. CT CAP reviewed with radiologist. PNA vs failure. acute cholecystitis? 1. CHEST: Substantially limited by motion. Pre cystic pattern of significant interstitial fibrosis, basilar predominant. Superimposed multifocal ground-glass could be inflammatory or congestive. Small effusions. Bibasilar airspace process could be atelectasis, aspiration or pneumonia. visualization due to motion but suspect surrounding inflammatory change. Recommend ultrasound to exclude acute cholecystitis. Evidence of portal hypertension. Mild ascites. Other nonacute appearing findings as above gram pos cocci in both bottles and urine, MSSA in urine identified. ICU CARE SYSTEMS BASED ASSESSMENT/PLAN -MAP at goal; BP MUCH IMPROVED. VENTILATOR/NONINVASIVE OXYGEN SUPPORT: NC oxygen only IMAGING: -CT reviewed with surgeon and family ruq u/s reviewed with surgeon and family LINES: -CENTRAL - n/a -RG - draining -NG - n/a -DRAINS - n/a -GTT - n/a -CHEST TUBE n/a ANTIBIOTICS/PRESSORS/SEDATION/FLUIDS/CV: Vanc day 3 Zosyn day 3 NEURO: -obtunded but at times agitated. CARDIOVASCULAR: -normal sinus rhythm, non STEMI versus demand ischemia noted.? troponin peaked. echo reassuring. can consider bblocker. no asp or plavix indicated now. Rhythm is holding in normal sinus.? We will continue to treat the underlying disorder. RESPIRATORY: -mild hypoxic respiratory failure, requiring nasal cannula oxygen.? PH maintained. GI: -will need IV Protonix RENAL/ELECTROLYTES: -renal function intact, electrolytes normal ID: source: PNA, endocarditis, cholecystitis, bone or soft tissue infection. still not narrowed but most likely either PNA or endocarditiis. Staph species in both blood cultures and urine cultureBroad-spectrum antibiotics being administered. ENDOCRINE: Will trend blood sugars Sodium and potassium are being monitored. HEMATOLOGY: Hemoglobin is stable. WOUNDS/INJURIES: Not applicable NUTRITION: Currently not applicable. D5 in IVF. PROPHYLAXIS:? VT prophylaxis with Lovenox DISPOSITION: Seriously guarded. TOTAL CRITICAL CARE TIME 60 MINUTES CARING FOR PATIENT, TO INCLUDE CARE TEAM ORDERS, INVESTIGATIONS, DISCUSSION WITH SPECIALISTS, FAMILIES. Exam Const: Vital Signs, click to edit/add: Vital Signs - 24 hr 06/19/22 19:34 06/19/22 22:42 06/19/22 22:44 Temperature 99.4 F 98.4 F Pulse Rate 109 H Pulse Rate [Left R adial] 108 H 104 H Respiratory Rate 16 Blood Pressure [Ri ght Arm] 104/46 L 111/53 L Pulse Oximetry 99 92 Oxygen Delivery Me thod Nasal Cannula Nasal Cannula Oxygen Flow Rate 2 1 06/19/22 22:45 06/19/22 22:46 06/19/22 22:48 Temperature Pulse Rate 109 H Pulse Rate [Left R adial] 104 H Respiratory Rate 16 Blood Pressure [Ri ght Arm] Pulse Oximetry 95 Oxygen Delivery Me thod Oxygen Flow Rate 06/20/22 02:40 06/20/22 02:41 06/20/22 07:00 Temperature 98.0 F Pulse Rate Pulse Rate [Left R adial] 104 H 105 H Respiratory Rate 16 18 Blood Pressure [Ri ght Arm] 128/62 Pulse Oximetry 93 93 Oxygen Delivery Me thod Nasal Cannula Oxygen Flow Rate 1 06/20/22 07:12 06/20/22 07:00 06/20/22 11:00 Temperature 99.3 F 98.2 F Pulse Rate 111 H Pulse Rate [Left R adial] 111 H 107 H Respiratory Rate 12 16 Blood Pressure [Ri ght Arm] 132/71 157/75 H Pulse Oximetry 93 91 Oxygen Delivery Me thod Nasal Cannula Nasal Cannula Oxygen Flow Rate 1 1 06/20/22 11:00 06/20/22 15:00 06/20/22 15:00 Temperature 97.6 F Pulse Rate Pulse Rate [Left R adial] 104 H 103 H Respiratory Rate 16 14 Blood Pressure [Ri ght Arm] 141/71 H Pulse Oximetry 90 90 Oxygen Delivery Me thod Room Air Oxygen Flow Rate 06/20/22 15:05 06/20/22 15:00 Temperature Pulse Rate 103 H Pulse Rate [Left R adial] 103 H Respiratory Rate 14 Blood Pressure [Ri ght Arm] Pulse Oximetry Oxygen Delivery Me thod Oxygen Flow Rate Labs Labs: Laboratory Results - last 24 hr 06/20/22 06/20/22 06/20/22 06:50 06:50 06:50 WBC 8.66 RBC 3.31 L Hgb 10.0 L Hct 31.6 L MCV 96 MCH 30 MCHC 32 Plt Count 72 L INR 1.32 H VBG pH VBG pCO2 VBG pO2 VBG HCO3 Sodium 139 Potassium 3.8 Chloride 112 Carbon Dioxide 19 L BUN 29 Creatinine 0.8 Estimated Creat Clear 46.13 Estimated GFR 86 Glucose 149 H Calcium 8.1 L Magnesium 1.6 Total Bilirubin 1.0 AST 65 H ALT 38 Alkaline Phosphatase 111 Troponin I 0.75 H* C-Reactive Protein 19.2 H NT-Pro-B Natriuret Pep 2070 H Total Protein 6.7 Albumin 3.0 L Procalcitonin 9.60 H 06/20/22 06:50 WBC RBC Hgb Hct MCV MCH MCHC Plt Count INR VBG pH 7.350 VBG pCO2 36 L VBG pO2 75.1 H VBG HCO3 20 L Sodium Potassium Chloride Carbon Dioxide BUN Creatinine Estimated Creat Clear Estimated GFR Glucose Calcium Magnesium Total Bilirubin AST ALT Alkaline Phosphatase Troponin I C-Reactive Protein NT-Pro-B Natriuret Pep Total Protein Albumin Procalcitonin
--- NOTE | 2022-06-20 18:15 | PC.NURSE ---
End of shift-- Pt has been unresponsive today. Occasionally pt will open his eyes or become restless in bed, but not in response to stimuli and restlessness improves with repositioning. He was given Ativan and Morphine once today and has been sleeping soundly since. VSS, though slightly hypertensive and tachycardic, and highest temp today was 99.3F. Fine crackles auscultated in lungs. Pronounced murmur. Telemetry shows sinus tachycardia. BS+ x4. Pt underwent CT scan and US today and tolerated both well. See EMR for details. Wills is patent and drained >500ml of light brent urine today. Blood sugars 136, 188 and 217 and pt was given insulin per sliding scale. Repositioned frequently. Family was at bedside this afternoon and appear loving and supportive. Report to oncoming shift.
[2022-06-20] MEDS: ENOXAPARIN 40 MG/0.4 ML INJ SUBCUT (20:45)
[2022-06-20] MEDS: PANTOPRAZOLE SODIUM 40 MG INJ IVP (20:46)
[2022-06-21] VITALS (8 sets, daily range): BP systolic 137–168; BP diastolic 70–80; PULSE 98–111; RESP 12–22; TEMP 36.8–37.3; O2SAT 90–94
[2022-06-21] MEDS: PIPERACILLIN/TAZOBACTAM 3.375 GM in 0.9 % SODIUM CHLORIDE Mini-bag 100 ML IVPB ×2 (00:30→06:31)
[2022-06-21] MEDS: 5 % DEXTROSE IN LAC RINGER'S 1,000 ML 125 ML IV ×3 (00:31→16:10)
[2022-06-21] MEDS: MORPHINE 4 MG/ML INJ IVP ×4 (01:50→18:37)
[2022-06-21] MEDS: LORazepam 2 MG/ML inj 0.5 MG IVP (02:28)
--- NOTE | 2022-06-21 04:07 | PC.NURSE ---
Shift note 19-: Pt responsive only to light pain, no purposeful movement or eye contact. Repositioning effective for restless until almost 0200, MS then given w/o success, followed-up w/ Ativan w/ good success in calming pt from repeated attempts crawling out of bed. Lungs w/ scattered crackles in the bases inspiratory > expiratory, O2 @ 1L to keeps sats low 90's. Wills patent. Afebrile. Tele reads SR/ST.
[2022-06-21 06:51] LABS: HCO3 VBG 24 mmol/L (21-28); PCO2 VBG 39 mmHG (40-50); pH VBG 7.392 (7.32-7.43)
[2022-06-21 06:59] LABS: Hematocrit 30.3 % (37.0-53.0); Hemoglobin* 9.5 gm/dL (13.5-17.5); Mean Corpuscular HGB Conc 31 gm/dL (32-36); Mean Corpuscular Hemoglobin 30 pg (26-34); Mean Corpuscular Volume 95 fL (80-100); Platelet Count* 70 K/uL (140-440); White Blood Count* 7.67 K/uL (4.50-11.00)
[2022-06-21 07:09] LABS: Slide Review Reflex No
[2022-06-21 07:11] LABS: INR 1.14 (0.91-1.10); Prothrombin Time 15.1 Seconds
[2022-06-21 07:18] LABS: Albumin* 2.9 g/dL (3.3-5.0); Chloride* 111 mmol/L (96-114); Sodium* 140 mmol/L (135-149)
[2022-06-21 07:19] LABS: Potassium* 3.7 mmol/L (3.6-5.1)
[2022-06-21 07:21] LABS: Alanine Aminotransferase* 52 U/L (4-50); Alkaline Phosphatase* 93 U/L (40-150); Aspartate Amino Transferase* 69 U/L (12-35); Bilirubin Total* 0.9 mg/dL (0.1-1.5); Blood Urea Nitrogen* 21 mg/dL (7-30); Carbon Dioxide* 21 mmol/L (20-32); Creatinine* 0.6 mg/dL (0.5-1.5); Est. Creatinine Clearance* 46.13; Estimated Glomerular Filt Rate 94 ml/min; Glucose* 340 mg/dL (60-115); Total Protein* 6.6 g/dL (6.0-8.3)
[2022-06-21 07:22] LABS: Calcium* 8.4 mg/dL (8.4-10.6); Magnesium* 1.8 mg/dL (1.5-2.6)
[2022-06-21 07:24] LABS: NT Pro B Type NatriureticPept* 2520 PG/mL (0-450)
[2022-06-21 07:33] LABS: Troponin I* 0.38 ng/mL (0.01-0.04)
[2022-06-21 07:38] LABS: C Reactive Protein* 17.5 mg/dL (0.5-1.0)
--- NOTE | 2022-06-21 10:34 | P.IMPN_ITS ---
Progress Note: A&P Assessment and plan (1) Bacteremia due to methicillin susceptible Staphylococcus aureus (MSSA): Problem details: change to ancef 2 grams q 8 source is unclear: PNA or endocarditis? most likely will discuss case with ID Status: Acute (2) Acute respiratory failure with hypoxia: Problem details: PNA, sepsis, chronic lung disease, ARDS? continue to support. -blood gas reassuring. not retaining CO2. minimal oxygen requirement. Status: Acute (3) Elevated troponin: Problem details: NSTEMI - treat underlying infection. troponin has peaked and is downtrending. BP stable. Status: Acute (4) Aortic stenosis: Problem details: same degree of disease it appears no obvious valve vegatations. TTE today: Final Impressions: 1. Normal left ventricular size, mildly increased wall thickness, normal global systolic function, calculated EF of 74 %. 2. Right ventricular cavity size is normal, global systolic RV function is normal. 3. The aortic valve is sclerotic and calcified, moderate stenosis and mild to moderate regurgitation. The aortic valve peak velocity is 3.7 m/s, the peak gradient is 54 mmHg, and the mean gradient is 28 mmHg. The aortic valve area is 0.94 cm?? with a dimensionless index of 0.33. The stroke volume index is 40.6 ml/m??. 4. The mitral valve is sclerotic, mild to moderate mitral regurgitation. 5. The inferior vena cava is dilated, respiratory size variation less than 50%. 6. 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 Last TTE 02/2022 Final Impressions: 1. Normal LV size, moderately increased wall thickness, hyperdynamic global s ystolic function with an estimated EF of 70 - 75%. 2. The aortic valve is calcified, sclerotic and not well visualized, moderate to severe stenosis and mild regurgitation. The aortic valve peak velocity is 4.3 m/s, the peak gradient is 74 mmHg, and the mean gradient is 44 mmHg. The aortic valve area is 1.14 cm?? with a dimensionless index of 0.37. The stroke volume index is 62.0 ml/m??. 3. The mitral valve is sclerotic, mild mitral regurgitation. Mild to moderate mitral stenosis with a mean diastolic gradient of 5.1 mm Hg at a heart rate of 93 bpm. Status: Acute (5) Cholelithiasis: Problem details: noted; not likely the source. Status: Acute (6) Portal hypertension: Problem details: from chronic lung disease; likely unchanged and giving us the findings in the gallbladder noted. Status: Acute Subjective Date Seen: 06/21/22 Interval history: Day #: 4, CCU level care CC: MSSA sepsis, altered mental status OVERNIGHT UPDATES FROM STAFF & MED, LAB, IMAGING UPDATES -intermittently agitated; BP improved, no fever in 48 hours. remains on minimal oxygen. Labs all point to improving picture. WBC is downtrending; HGB up, platelets in the 70's but not new. blood gas stable. chemistries reassuring. troponin peaked. procalcitonin downtrending. CT CAP reviewed with radiologist. PNA vs failure. acute cholecystitis? 1. CHEST: Substantially limited by motion. Pre cystic pattern of significant interstitial fibrosis, basilar predominant. Superimposed multifocal ground-glass could be inflammatory or congestive. Small effusions. Bibasilar airspace process could be atelectasis, aspiration or pneumonia. visualization due to motion but suspect surrounding inflammatory change. Recommend ultrasound to exclude acute cholecystitis. Evidence of portal hypertension. Mild ascites. Other nonacute appearing findings as above gram pos cocci in both bottles and urine, MSSA in urine identified. ICU CARE SYSTEMS BASED ASSESSMENT/PLAN -MAP at goal; BP MUCH IMPROVED. VENTILATOR/NONINVASIVE OXYGEN SUPPORT: NC oxygen only IMAGING: -CT reviewed with surgeon and family ruq u/s reviewed with surgeon and family LINES: -CENTRAL - n/a -RG - draining -NG - n/a -DRAINS - n/a -GTT - n/a -CHEST TUBE n/a ANTIBIOTICS/PRESSORS/SEDATION/FLUIDS/CV: Vanc day 3 Zosyn day 3 NEURO: -obtunded but at times agitated. Not retaining C02. CARDIOVASCULAR: -normal sinus rhythm, non STEMI versus demand ischemia noted.? troponin peaked. echo reassuring. can consider bblocker. no asp or plavix indicated now. Rhythm is holding in normal sinus.? We will continue to treat the underlying disorder. RESPIRATORY: -mild hypoxic respiratory failure, requiring nasal cannula oxygen.? PH maintained. GI: -will need IV Protonix RENAL/ELECTROLYTES: -renal function intact, electrolytes normal ID: source: PNA, endocarditis, cholecystitis, bone or soft tissue infection. still not narrowed but most likely either PNA or endocarditiis. Staph Aureus - MSSA - change to 2 grams iv ancef q 8 now that blood cultures confirmed same bacteria as urine. ENDOCRINE: Will trend blood sugars Sodium and potassium are being monitored. HEMATOLOGY: Hemoglobin is stable. WOUNDS/INJURIES: Not applicable NUTRITION: Currently not applicable. D5 in IVF. TPN at day 6-7? need family discussion on this point. PROPHYLAXIS:? VT prophylaxis with Lovenox DISPOSITION: Seriously guarded. TOTAL CRITICAL CARE TIME 60 MINUTES CARING FOR PATIENT, TO INCLUDE CARE TEAM ORDERS, INVESTIGATIONS, DISCUSSION WITH SPECIALISTS, FAMILIES. Exam Const: Vital Signs, click to edit/add: Vital Signs - 24 hr 06/20/22 11:00 06/20/22 11:00 06/20/22 15:00 Temperature 98.2 F Pulse Rate Pulse Rate [Left R adial] 107 H 104 H Respiratory Rate 16 16 Blood Pressure [Ri ght Arm] 157/75 H Pulse Oximetry 91 90 Oxygen Delivery Me thod Nasal Cannula Oxygen Flow Rate 1 06/20/22 15:00 06/20/22 15:05 06/20/22 15:00 Temperature 97.6 F Pulse Rate 103 H Pulse Rate [Left R adial] 103 H 103 H Respiratory Rate 14 14 Blood Pressure [Ri ght Arm] 141/71 H Pulse Oximetry 90 Oxygen Delivery Me thod Room Air Oxygen Flow Rate 06/20/22 20:30 06/20/22 20:30 06/21/22 00:25 Temperature 98.3 F 98.3 F Pulse Rate Pulse Rate [Left R adial] 96 96 98 Respiratory Rate 16 16 18 Blood Pressure [Ri ght Arm] 134/77 158/72 H Pulse Oximetry 92 92 Oxygen Delivery Me thod Room Air Nasal Can nula Room Air Nasal Can nula Oxygen Flow Rate 1 1 06/21/22 00:25 06/21/22 00:25 06/21/22 00:25 Temperature Pulse Rate Pulse Rate [Left R adial] 98 Respiratory Rate 18 18 Blood Pressure [Ri ght Arm] Pulse Oximetry 92 92 Oxygen Delivery Me thod Room Air Nasal Can nula Oxygen Flow Rate 1 06/21/22 03:27 06/21/22 03:27 06/21/22 07:40 Temperature 98.6 F Pulse Rate Pulse Rate [Left R adial] 103 H 103 H Respiratory Rate 18 18 Blood Pressure [Ri ght Arm] 137/71 Pulse Oximetry 92 91 Oxygen Delivery Me thod Nasal Cannula Oxygen Flow Rate 1 06/21/22 07:40 06/21/22 07:40 06/21/22 07:38 Temperature 98.4 F Pulse Rate 106 H Pulse Rate [Left R adial] 104 H Respiratory Rate 12 Blood Pressure [Ri ght Arm] 147/72 H Pulse Oximetry 91 91 Oxygen Delivery Me thod Nasal Cannula Nasal Cannula Oxygen Flow Rate 1 1 Labs Labs: Laboratory Results - last 24 hr 06/21/22 06/21/22 06/21/22 06:06 06:06 06:06 WBC 7.67 RBC 3.20 L Hgb 9.5 L Hct 30.3 L MCV 95 MCH 30 MCHC 31 L Plt Count 70 L INR 1.14 H VBG pH VBG pCO2 VBG pO2 VBG HCO3 Sodium 140 Potassium 3.7 Chloride 111 Carbon Dioxide 21 BUN 21 Creatinine 0.6 Estimated Creat Clear 46.13 Estimated GFR 94 Glucose 340 H Calcium 8.4 Magnesium 1.8 Total Bilirubin 0.9 AST 69 H ALT 52 H Alkaline Phosphatase 93 Troponin I 0.38 H* C-Reactive Protein 17.5 H NT-Pro-B Natriuret Pep 2520 H Total Protein 6.6 Albumin 2.9 L Procalcitonin 4.50 H 06/21/22 06:06 WBC RBC Hgb Hct MCV MCH MCHC Plt Count INR VBG pH 7.392 VBG pCO2 39 L VBG pO2 45.0 VBG HCO3 24 Sodium Potassium Chloride Carbon Dioxide BUN Creatinine Estimated Creat Clear Estimated GFR Glucose Calcium Magnesium Total Bilirubin AST ALT Alkaline Phosphatase Troponin I C-Reactive Protein NT-Pro-B Natriuret Pep Total Protein Albumin Procalcitonin
[2022-06-21] MEDS: CEFAZOLIN 2 GM in 0.9 % SODIUM CHLORIDE Mini-bag 100 ML IVPB ×2 (11:27→19:30)
--- NOTE | 2022-06-21 14:26 | PC.NURSE ---
Pt. unresponsive. Turned and repositioned q2h. Telemetry Sinus Tachycardia (HR 100s). Afebrile.
[2022-06-21] MEDS: ENOXAPARIN 40 MG/0.4 ML INJ SUBCUT (19:31)
[2022-06-21] MEDS: SODIUM CHLORIDE 0.9 % (FLUSH) 10 ML SYRINGE 5 ML IVF (19:31)
[2022-06-21] MEDS: PANTOPRAZOLE SODIUM 40 MG INJ IVP (19:31)
--- NOTE | 2022-06-21 21:36 | PC.NURSE ---
Shift Note [id number]: Pt minimally responsive to verbal/physical stimulus. Briefly opens eyes when spoken to, unable to respond. Morphine 4mg given PRN for restlessness. BP's slightly hypertensive, VS otherwise WNL. SpO2 93% on 2L/O2 via NC. Ancef given IVPB and maintenance fluids runnning. +2 pitting edema on right foot, +1 on left foot. LE's elevated. Wills patent and draining. No mottling noted at this time. Appears to be resting comfortably in bed.
[2022-06-22] VITALS (9 sets, daily range): BP systolic 83–163; BP diastolic 63–76; PULSE 80–141; RESP 12–20; TEMP 36.1–37.3; O2SAT 93–95
[2022-06-22] MEDS: 5 % DEXTROSE IN LAC RINGER'S 1,000 ML 125 ML IV ×2 (00:48→09:26)
[2022-06-22] MEDS: MORPHINE 4 MG/ML INJ IVP (02:30)
[2022-06-22] MEDS: CEFAZOLIN 2 GM in 0.9 % SODIUM CHLORIDE Mini-bag 100 ML IVPB ×3 (02:36→18:38)
--- NOTE | 2022-06-22 06:07 | PC.NURSE ---
Shift Note [id number]:? Pt is mildly responsive to verbal/physical stimulus. Briefly opens eyes when spoken to and is unable to respond. Morphine 4mg given PRN for restlessness, Pt. appears to be resting comfortably after administration. BP's slightly hypertensive, VS WNL. SpO2 93% on 2L/O2 via NC. maintenance fluids running. +2 pitting edema on right foot, +1 on left foot. Pt. repo Q2hrs. Wills patent and draining. No mottling noted at this time.
[2022-06-22 07:43] LABS: HCO3 VBG 26 mmol/L (21-28); PCO2 VBG 36 mmHG (40-50); PO2 VBG 88.3 mmHG (25-47)
[2022-06-22 07:44] LABS: Hematocrit 30.3 % (37.0-53.0); Hemoglobin* 9.6 gm/dL (13.5-17.5); Mean Corpuscular HGB Conc 32 gm/dL (32-36); Mean Corpuscular Hemoglobin 30 pg (26-34); Mean Corpuscular Volume 95 fL (80-100); Platelet Count* 61 K/uL (140-440); Red Blood Count 3.19 m/uL (4.30-5.90); White Blood Count* 9.08 K/uL (4.50-11.00)
[2022-06-22 08:02] LABS: INR 1.13 (0.91-1.10); Slide Review Reflex No
[2022-06-22 08:04] LABS: Albumin* 2.8 g/dL (3.3-5.0); Chloride* 110 mmol/L (96-114)
[2022-06-22 08:05] LABS: Potassium* 3.4 mmol/L (3.6-5.1); Sodium* 141 mmol/L (135-149)
[2022-06-22 08:07] LABS: Creatinine* 0.5 mg/dL (0.5-1.5); Est. Creatinine Clearance* 46.13; Estimated Glomerular Filt Rate 99 ml/min
[2022-06-22 08:08] LABS: Alanine Aminotransferase* 38 U/L (4-50); Alkaline Phosphatase* 100 U/L (40-150); Aspartate Amino Transferase* 40 U/L (12-35); Blood Urea Nitrogen* 14 mg/dL (7-30); Calcium* 8.4 mg/dL (8.4-10.6); Carbon Dioxide* 23 mmol/L (20-32); Glucose* 295 mg/dL (60-115); Magnesium* 1.6 mg/dL (1.5-2.6); Total Protein* 6.5 g/dL (6.0-8.3)
[2022-06-22 08:17] LABS: NT Pro B Type NatriureticPept* 3690 PG/mL (0-450)
[2022-06-22 08:25] LABS: Procalcitonin* 1.96 ng/mL (<0.50)
[2022-06-22 08:41] LABS: C Reactive Protein* 14.3 mg/dL (0.5-1.0); Troponin I* 0.29 ng/mL (0.01-0.04)
--- NOTE | 2022-06-22 10:49 | CRLHL7_ITS ---
For Patients: As a result of the 21st Century Cures Act, medical imaging exams and procedure reports are released immediately into your electronic medical record. You may view this report before your referring provider. If you have questions, please contact your health care provider. INDICATION: Unresponsive, agitated, sepsis TECHNIQUE: Noncontrast axial CT of the head. Coronal and sagittal reformats. Bone and soft tissue algorithms. COMPARISON: CT head 09/05/2021 FINDINGS: Motion degraded exam. The ventricles and cortical sulci are mildly prominent. No hydrocephalus or herniation. No evidence of acute/subacute ischemic, intracranial hemorrhage or extra-axial fluid collection. Scattered mild supratentorial white-matter hypoattenuation. Intracranial ICA plaquing. Partially empty sella configuration, unchanged. Bony calvarium appears grossly intact. Nonspecific lucent region along the dorsal aspect of the left sphenoid sinus, presumably chronic-developmental, and unchanged over the interval. Paranasal sinuses and mastoid air cells are clear. Orbits are unremarkable. IMPRESSION: 1. Motion degraded exam, without evidence of acute intracranial abnormality, or significant change relative to 09/05/2021. 2. Similar generalized cerebral volume loss and chronic microangiopathic changes. Please note that all CT scans at this facility use dose modulation, iterative reconstruction, and/or weight-based dosing when appropriate to reduce radiation dose to as low as reasonably achievable. Dictated by Antonieta Albarran MD @ 06/22/2022 1:51:45 PM (Electronically Signed)
--- NOTE | 2022-06-22 12:30 | P.IMPN_ITS ---
Progress Note: A&P Assessment and plan (1) Bacteremia due to methicillin susceptible Staphylococcus aureus (MSSA): Problem details: change to ancef 2 grams q 8 source is unclear: PNA or endocarditis? Aortic valve endocarditis is top of list. Unable to discuss case with ID -adding fentanyl patch to ease pain and agitation -adding Toradol for a nonopioid additional resource -head CT as his neuro cognitive status remains guarded and markedly abnormal Status: Acute (2) Acute respiratory failure with hypoxia: Problem details: PNA, sepsis, chronic lung disease, ARDS? continue to support. -blood gas reassuring. not retaining CO2. minimal oxygen requirement. Status: Acute (3) Elevated troponin: Problem details: NSTEMI - treat underlying infection. troponin has peaked and is downtrending. BP stable. Status: Acute (4) Aortic stenosis: Problem details: same degree of disease it appears no obvious valve vegatations. TTE today: Final Impressions: 1. Normal left ventricular size, mildly increased wall thickness, normal global systolic function, calculated EF of 74 %. 2. Right ventricular cavity size is normal, global systolic RV function is normal. 3. The aortic valve is sclerotic and calcified, moderate stenosis and mild to moderate regurgitation. The aortic valve peak velocity is 3.7 m/s, the peak gradient is 54 mmHg, and the mean gradient is 28 mmHg. The aortic valve area is 0.94 cm?? with a dimensionless index of 0.33. The stroke volume index is 40.6 ml/m??. 4. The mitral valve is sclerotic, mild to moderate mitral regurgitation. 5. The inferior vena cava is dilated, respiratory size variation less than 50%. 6. 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 Last TTE 02/2022 Final Impressions: 1. Normal LV size, moderately increased wall thickness, hyperdynamic global systolic function with an estimated EF of 70 - 75%. 2. The aortic valve is calcified, sclerotic and not well visualized, moderate to severe stenosis and mild regurgitation. The aortic valve peak velocity is 4.3 m/s, the peak gradient is 74 mmHg, and the mean gradient is 44 mmHg. The aortic valve area is 1.14 cm?? with a dimensionless index of 0.37. The stroke volume index is 62.0 ml/m??. 3. The mitral valve is sclerotic, mild mitral regurgitation. Mild to moderate mitral stenosis with a mean diastolic gradient of 5.1 mm Hg at a heart rate of 93 bpm. Status: Acute (5) Cholelithiasis: Problem details: noted; not likely the source. Status: Acute (6) Portal hypertension: Problem details: from chronic lung disease; likely unchanged and giving us the findings in the gallbladder noted. Status: Acute (7) Thrombocytopenia: Problem details: Trending down. Status: Acute (8) Type 2 diabetes mellitus: Problem details: Long-acting Levemir. Sliding scale ordered. Status: Acute (9) Interstitial lung disease: Problem details: follows with Pulmonology at [facility] Status: Acute (10) Dementia: Status: Acute (11) Normocytic anemia: Status: Acute Subjective Date Seen: 06/22/22 Interval history: Day #: 5, CCU level care CC: MSSA sepsis, altered mental status OVERNIGHT UPDATES FROM STAFF & MED, LAB, IMAGING UPDATES -intermittently agitated; BP improved, no fever in 3 days. remains on minimal oxygen. Hemoglobin stable. No leukocytosis. Platelets down trending now 61,000. INR persistently 1.1-1.3 PH stable. Potassium is just minimally depressed at 3.4 Blood sugar: 286, 241, 250, 330, 321 - started him on some Lantus yesterday. Kidney function and other electrolytes, magnesium, LFTs, troponin, CRP, procalcitonin - all improving. BNP has slightly increased from 2500 to 3700. - decreased his IV fluids and added a 100 mL of albumin. As his protein has continued to decrease from 4.2- 2.8 MSSA in both the urine and blood cultures from admission. Staph aureus growing in the 2nd set of blood cultures. Third set are drawn this morning and pending. ICU CARE SYSTEMS BASED ASSESSMENT/PLAN -MAP at goal; BP MUCH IMPROVED. VENTILATOR/NONINVASIVE OXYGEN SUPPORT: NC oxygen only IMAGING: -CT reviewed with surgeon and family ruq u/s reviewed with surgeon and family LINES: -CENTRAL - n/a -RG - draining -NG - n/a -DRAINS - n/a -GTT - n/a -CHEST TUBE n/a ANTIBIOTICS/PRESSORS/SEDATION/FLUIDS/CV: Status post vanc and Zosyn, those have now been discontinued. Ancef 2 g Q 8 as we have identified Staph aureus, methicillin sensitive. NEURO: -obtunded but at times agitated. Not retaining C02. CARDIOVASCULAR: -normal sinus rhythm, non STEMI versus demand ischemia noted.? troponin peaked. echo reassuring. can consider bblocker. no asp or plavix indicated now. Rhythm is holding in normal sinus.? We will continue to treat the underlying disorder. RESPIRATORY: -mild hypoxic respiratory failure, requiring nasal cannula oxygen.? PH maintained. GI: -will need IV Protonix RENAL/ELECTROLYTES: -renal function intact, electrolytes normal ID: source: PNA, endocarditis, cholecystitis, bone or soft tissue infection. still not narrowed but most likely either PNA or endocarditiis. Staph Aureus - MSSA - change to 2 grams iv ancef q 8 now that blood cultures confirmed same bacteria as urine. ENDOCRINE: Will trend blood sugars Sodium and potassium are being monitored. HEMATOLOGY: Hemoglobin is stable. WOUNDS/INJURIES: Not applicable NUTRITION: Currently not applicable. D5 in IVF. TPN at day 6-7? need family discussion on this point. PROPHYLAXIS:? VT prophylaxis with Lovenox DISPOSITION: Seriously guarded. TOTAL CRITICAL CARE TIME 60 MINUTES CARING FOR PATIENT, TO INCLUDE CARE TEAM ORDERS, INVESTIGATIONS, DISCUSSION WITH SPECIALISTS, FAMILIES. Exam Const: Vital Signs, click to edit/add: Vital Signs - 24 hr 06/21/22 15:00 06/21/22 15:00 06/21/22 15:00 Temperature 98.6 F Pulse Rate Pulse Rate [Left R adial] 103 H 103 H Respiratory Rate 22 22 Blood Pressure [Ri ght Arm] 156/70 H Pulse Oximetry 90 91 Oxygen Delivery Me thod Nasal Cannula Oxygen Flow Rate 1.5 06/21/22 15:00 06/21/22 19:00 06/21/22 23:00 Temperature 98.4 F Pulse Rate 101 H Pulse Rate [Left R adial] 105 H Respiratory Rate 12 Blood Pressure [Ri ght Arm] 164/76 H Pulse Oximetry 94 94 Oxygen Delivery Me thod Nasal Cannula Oxygen Flow Rate 2 06/21/22 23:00 06/21/22 23:00 06/21/22 23:00 Temperature 99.1 F Pulse Rate 109 H Pulse Rate [Left R adial] 111 H 111 H Respiratory Rate 12 12 Blood Pressure [Ri ght Arm] 168/80 H Pulse Oximetry 94 Oxygen Delivery Me thod Nasal Cannula Oxygen Flow Rate 2 06/22/22 02:44 06/22/22 07:54 06/22/22 07:54 Temperature 99.1 F 98.5 F Pulse Rate Pulse Rate [Left R adial] 110 H 98 Respiratory Rate 12 14 Blood Pressure [Ri ght Arm] 155/74 H 160/73 H Pulse Oximetry 95 94 94 Oxygen Delivery Me thod Nasal Cannula Nasal Cannula Oxygen Flow Rate 2 2 06/22/22 07:54 06/22/22 07:39 06/22/22 11:24 Temperature 98.2 F Pulse Rate 95 Pulse Rate [Left R adial] 95 Respiratory Rate 16 Blood Pressure [Ri ght Arm] 163/71 H Pulse Oximetry 94 94 Oxygen Delivery Me thod Nasal Cannula Nasal Cannula Oxygen Flow Rate 2 2 Labs Labs: Laboratory Results - last 24 hr 06/22/22 06/22/22 06/22/22 07:11 07:11 07:11 WBC 9.08 RBC 3.19 L Hgb 9.6 L Hct 30.3 L MCV 95 MCH 30 MCHC 32 Plt Count 61 L INR 1.13 H VBG pH VBG pCO2 VBG pO2 VBG HCO3 Sodium 141 Potassium 3.4 L Chloride 110 Carbon Dioxide 23 BUN 14 Creatinine 0.5 Estimated Creat Clear 46.13 Estimated GFR 99 Glucose 295 H Calcium 8.4 Magnesium 1.6 Total Bilirubin 1.0 AST 40 H ALT 38 Alkaline Phosphatase 100 Troponin I 0.29 H* C-Reactive Protein 14.3 H NT-Pro-B Natriuret Pep 3690 H Total Protein 6.5 Albumin 2.8 L Procalcitonin 1.96 H 06/22/22 07:11 WBC RBC Hgb Hct MCV MCH MCHC Plt Count INR VBG pH 7.460 H VBG pCO2 36 L VBG pO2 88.3 H VBG HCO3 26 Sodium Potassium Chloride Carbon Dioxide BUN Creatinine Estimated Creat Clear Estimated GFR Glucose Calcium Magnesium Total Bilirubin AST ALT Alkaline Phosphatase Troponin I C-Reactive Protein NT-Pro-B Natriuret Pep Total Protein Albumin Procalcitonin
[2022-06-22] MEDS: KETOROLAC 30 MG/ML inj IVP ×3 (12:58→23:48)
[2022-06-22] MEDS: LORazepam 2 MG/ML inj 0.5 MG IVP (12:58)
[2022-06-22] MEDS: fentaNYL 12 mcg/hr PATCH 1 PATCH TRANSDERMA (13:24)
[2022-06-22] MEDS: ALBUMIN HUMAN 25% 100 ML VIAL IV (14:26)
--- NOTE | 2022-06-22 18:51 | PC.NURSE ---
Positive blood cultures reported to Dr. Narvaez.
[2022-06-22] MEDS: SODIUM CHLORIDE 0.9 % (FLUSH) 10 ML SYRINGE 5 ML IVF (20:24)
[2022-06-22] MEDS: ENOXAPARIN 40 MG/0.4 ML INJ SUBCUT (20:24)
[2022-06-22] MEDS: PANTOPRAZOLE SODIUM 40 MG INJ IVP (20:24)
--- NOTE | 2022-06-22 21:30 | PC.NURSE ---
Shift Note [id number]: T&R Q2H. Pt set off bed alarm x3 this shift and found to have legs draped over edge of bed. When greeted, pt responded hi but unable to maintain eye contact. When asked if he is having pain, pt responded No. With repositioning pt would sleep intermittently between restless episodes and continue to deny pain. At 2100 with HS cares pt more alert and able to tolerate ice chips without difficulty. VS WNL, SpO2 94% on 1L/O2 via NC. Moist intermittent cough without sputum production. Wills patent and draining dark brent urine. Ancef infused without difficulty. Tele= NSR. Fentanyl patch in place on right shoulder/arm region.
--- NOTE | 2022-06-22 22:17 | PM.EN ---
Chart Event Note Time Seen by Provider: 22:10 Date Seen: 06/22/22 Chart Event Note: Patient suddenly developed A Fib RVR after having a BM. HR 140-160 BPM. SBP previously 130s. After A Fib RVR SBP 105 mmHg. Has had poor UO. BNP has been rising. Potassium 3.4 this AM. Nl Magneisium and falling Cr and BUN. Recent ECHO EF74%, IVC < 50% variation with respirations. C/W CHF Diltiazem 10 mg IV. Metoprolol 5 mg IV q6H PRN HR >100 for > 10 min and SBP > 100 mmHg. Continue to monitor and adjust interventions as warranted. Labs ordered for AM. Potassium bumps x 2 ordered for now.
[2022-06-22] MEDS: FUROSEMIDE 10 MG/ML inj 20 MG IVP (22:29)
[2022-06-22] MEDS: dilTIAZem 5 MG/ML inj 10 MG IVP (22:30)
[2022-06-22] MEDS: POTASSIUM CHLORIDE 10 MEQ/100 ML PIGGYBACK 100 MEQ IVPB (23:04)
[2022-06-22] MEDS: 0.9 % SODIUM CHLORIDE 500 ML 500 ML IV (23:08)
[2022-06-22] MEDS: METOPROLOL TARTRATE 1 MG/ML inj 5 MG IVP (23:35)
[2022-06-23] MEDS: LORazepam 2 MG/ML inj 0.5 MG IVP ×2 (00:15→12:07)
[2022-06-23] MEDS: POTASSIUM CHLORIDE 10 MEQ/100 ML PIGGYBACK 100 MEQ IVPB (01:03)
[2022-06-23] MEDS: dilTIAZem HCL 125 MG in 0.9 % SODIUM CHLORIDE 100 ml 100 ML IVPB (01:40)
[2022-06-23] MEDS: MORPHINE 4 MG/ML INJ IVP ×4 (01:43→11:13)
[2022-06-23] MEDS: ALBUMIN HUMAN 25% 100 ML VIAL IV ×2 (02:33→04:30)
[2022-06-23 03:00] VITALS: BP 100/57; PULSE 140; RESP 20; TEMP 36.6; O2SAT 96
--- NOTE | 2022-06-23 03:12 | PC.NURSE ---
SHIFT NOTE 23-03: Pt initially very restless and moaning, not responding to questions, and unreceptive. Pt given PRN Ativan and PRN Morphine with great improvement in behaviors, appeared much more relaxed and lowered RR to low 20's. Pt had a soft incontinent BM, lennie care provided. RG patent and draining. Tele a-fib with RVR ranging from the 120's as high as 180, see eMAR for medications given. Diltiazem drip started at 5ml/hr at 0200, see medication titration sheet. Jacob Hospitalist updated on VS at 0300, physician underwriter instructed by Jacob to turn drip up to 10ml/hr, drip now running at 10ml/hr. Pt with course crackles and wheezes, updated Jacob and requested a nebulizer treatment, awaiting order. Pt oxygen saturations in the mid 90's on 2L O2 PNC, afebrile.
[2022-06-23] MEDS: 5 % DEXTROSE IN LAC RINGER'S 1,000 ML 75 ML IV (03:28)
[2022-06-23] MEDS: CEFAZOLIN 2 GM in 0.9 % SODIUM CHLORIDE Mini-bag 100 ML IVPB ×2 (03:33→11:14)
[2022-06-23 04:09] VITALS: PULSE 122
[2022-06-23] MEDS: ALBUTEROL SULFATE 2.5 MG/3 ML VIAL.NEB NEB (04:17)
[2022-06-23] MEDS: KETOROLAC 30 MG/ML inj IVP ×2 (05:39→11:28)
[2022-06-23] MEDS: 0.9 % SODIUM CHLORIDE 500 ML 500 ML IV (05:39)
[2022-06-23 06:50] LABS: HCO3 VBG 25 mmol/L (21-28); PCO2 VBG 44 mmHG (40-50); PO2 VBG 57.8 mmHG (25-47); pH VBG 7.364 (7.32-7.43)
[2022-06-23 07:06] LABS: Hematocrit 26.6 % (37.0-53.0); Hemoglobin* 8.3 gm/dL (13.5-17.5); Mean Corpuscular HGB Conc 31 gm/dL (32-36); Mean Corpuscular Hemoglobin 30 pg (26-34); Mean Corpuscular Volume 97 fL (80-100); Platelet Count* 63 K/uL (140-440); Red Blood Count 2.74 m/uL (4.30-5.90); White Blood Count* 8.44 K/uL (4.50-11.00)
[2022-06-23 07:13] LABS: Slide Review Reflex No
[2022-06-23 07:23] LABS: Prothrombin Time 16.7 Seconds
[2022-06-23 07:27] LABS: Albumin* 3.4 g/dL (3.3-5.0); Chloride* 111 mmol/L (96-114)
[2022-06-23 07:28] LABS: Potassium* 3.4 mmol/L (3.6-5.1); Sodium* 145 mmol/L (135-149)
[2022-06-23 07:30] VITALS: BP 107/53; PULSE 101; RESP 16; TEMP 36.1; O2SAT 94
[2022-06-23 07:30] LABS: Alkaline Phosphatase* 98 U/L (40-150); Aspartate Amino Transferase* 54 U/L (12-35); Bilirubin Total* 1.7 mg/dL (0.1-1.5); Carbon Dioxide* 24 mmol/L (20-32); Creatinine* 0.7 mg/dL (0.5-1.5); Est. Creatinine Clearance* 46.13; Estimated Glomerular Filt Rate 90 ml/min; Total Protein* 6.6 g/dL (6.0-8.3)
[2022-06-23 07:31] LABS: Alanine Aminotransferase* 27 U/L (4-50); Blood Urea Nitrogen* 19 mg/dL (7-30); Calcium* 8.8 mg/dL (8.4-10.6); Glucose* 230 mg/dL (60-115); Magnesium* 1.6 mg/dL (1.5-2.6)
[2022-06-23 07:33] LABS: C Reactive Protein* 8.9 mg/dL (0.5-1.0)
[2022-06-23 07:38] LABS: NT Pro B Type NatriureticPept* 7190 PG/mL (0-450)
[2022-06-23 07:45] LABS: Troponin I* 0.48 ng/mL (0.01-0.04)
[2022-06-23 07:46] LABS: Procalcitonin* 1.42 ng/mL (<0.50)
--- NOTE | 2022-06-23 07:46 | PC.NURSE ---
Critical Trop 0.48, Dr. jJ notified
--- NOTE | 2022-06-23 08:07 | PC.NURSE ---
late entry order - CCU status started 06/22/22 at 2200
[2022-06-23 08:38] VITALS: PULSE 101; RESP 16
[2022-06-23] MEDS: fentaNYL 25 MCG/HR PATCH 1 PATCH TRANSDERMA (11:17)
[2022-06-23] MEDS: HYOSCYAMINE SULFATE 0.125 MG TAB SUBLINGUAL ×3 (12:17→23:10)
--- NOTE | 2022-06-23 15:17 | P.IMPN_ITS ---
Progress Note: A&P Assessment and plan (1) Bacteremia due to methicillin susceptible Staphylococcus aureus (MSSA): Problem details: source never identified; presumed bladder or endocarditis comfort cares now Status: Acute (2) Acute respiratory failure with hypoxia: Problem details: PNA, sepsis, chronic lung disease, ARDS? continue to support. Status: Acute (3) Elevated troponin: Problem details: troponin uptrending again with BNP; nstemi and acute failure noted both by labs and clinically. Status: Acute (4) Aortic stenosis: Problem details: same degree of disease it appears no obvious valve vegatations. TTE today: Final Impressions: 1. Normal left ventricular size, mildly increased wall thickness, normal global systolic function, calculated EF of 74 %. 2. Right ventricular cavity size is normal, global systolic RV function is normal. 3. The aortic valve is sclerotic and calcified, moderate stenosis and mild to moderate regurgitation. The aortic valve peak velocity is 3.7 m/s, the peak gradient is 54 mmHg, and the mean gradient is 28 mmHg. The aortic valve area is 0.94 cm?? with a dimensionless index of 0.33. The stroke volume index is 40.6 ml/m??. 4. The mitral valve is sclerotic, mild to moderate mitral regurgitation. 5. The inferior vena cava is dilated, respiratory size variation less than 50%. 6. 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 Last TTE 02/2022 Final Impressions: 1. Normal LV size, moderately increased wall thickness, hyperdynamic global systolic function with an estimated EF of 70 - 75%. 2. The aortic valve is calcified, sclerotic and not well visualized, moderate to severe stenosis and mild regurgitation. The aortic valve peak velocity is 4.3 m/s, the peak gradient is 74 mmHg, and the mean gradient is 44 mmHg. The aortic valve area is 1.14 cm?? with a dimensionless index of 0.37. The stroke volume index is 62.0 ml/m??. 3. The mitral valve is sclerotic, mild mitral regurgitation. Mild to moderate mitral stenosis with a mean diastolic gradient of 5.1 mm Hg at a heart rate of 93 bpm. Status: Acute (5) Cholelithiasis: Problem details: noted; not likely the source. Status: Acute (6) Portal hypertension: Problem details: from chronic lung disease; likely unchanged and giving us the findings in the gallbladder noted. Status: Acute (7) Thrombocytopenia: Problem details: Trending down. Status: Acute (8) Type 2 diabetes mellitus: Problem details: Long-acting Levemir. Sliding scale ordered. Status: Acute (9) Interstitial lung disease: Problem details: follows with Pulmonology at [facility] Status: Acute (10) Dementia: Status: Acute (11) Normocytic anemia: Status: Acute Subjective Date Seen: 06/23/22 Interval history: Day #: 6, CCU level care CC: MSSA sepsis, altered mental status now with NSTEMI, CHF OVERNIGHT UPDATES FROM STAFF & MED, LAB, IMAGING UPDATES -intermittently agitated; continues to be unresponsive. Tachy last night - moved to CCU status and given albumin, cardizem drip and lasix. in failure and showing signs of ischemic demand and respiratory failure this morning. MSSA in both the urine and blood cultures from admission. Staph aureus growing in the 2nd set of blood cultures. Third set are drawn this morning and pending. family meeting with daughter, son, in law, : explained how sepsis damages the brain and the heart and that at this point, Power is dying and will not have any meaningful recovery; we are delaying at this point. they agree to make him comfort cares; and his monitoring and therapies will now reflect this. Exam Const: Vital Signs, click to edit/add: Vital Signs - 24 hr 06/22/22 19:00 06/22/22 22:05 06/22/22 22:52 Temperature 97.3 F L 96.9 F L Pulse Rate Pulse Rate [Left R adial] 86 133 H 128 H Respiratory Rate 16 16 20 Blood Pressure [Ri ght Arm] 137/64 107/76 87/69 L Pulse Oximetry 94 93 93 Oxygen Delivery Me thod Nasal Cannula Nasal Cannula Nasal Cannula Oxygen Flow Rate 1 1 1 06/22/22 23:00 06/22/22 23:00 06/22/22 23:00 Temperature 97.2 F L Pulse Rate Pulse Rate [Left R adial] 141 H 98 Respiratory Rate 20 20 Blood Pressure [Ri ght Arm] 83/68 L Pulse Oximetry 94 95 Oxygen Delivery Me thod Nasal Cannula Oxygen Flow Rate 2 06/23/22 03:00 06/23/22 04:09 06/23/22 08:38 Temperature 97.8 F Pulse Rate 122 H 101 H Pulse Rate [Left R adial] 140 H Respiratory Rate 20 Blood Pressure [Ri ght Arm] 100/57 L Pulse Oximetry 96 Oxygen Delivery Me thod Nasal Cannula Oxygen Flow Rate 2 06/23/22 08:38 06/23/22 07:30 06/23/22 07:30 Temperature 97.0 F L Pulse Rate Pulse Rate [Left R adial] 101 H 101 H Respiratory Rate 16 16 Blood Pressure [Ri ght Arm] 107/53 L Pulse Oximetry 94 94 Oxygen Delivery Me thod Nasal Cannula Oxygen Flow Rate 2 Labs Labs: Laboratory Results - last 24 hr 06/23/22 06/23/22 06/23/22 06:17 06:17 06:17 WBC 8.44 RBC 2.74 L Hgb 8.3 L Hct 26.6 L MCV 97 MCH 30 MCHC 31 L Plt Count 63 L INR 1.30 H VBG pH VBG pCO2 VBG pO2 VBG HCO3 Sodium 145 Potassium 3.4 L Chloride 111 Carbon Dioxide 24 BUN 19 Creatinine 0.7 Estimated Creat Clear 46.13 Estimated GFR 90 Glucose 230 H Calcium 8.8 Magnesium 1.6 Total Bilirubin 1.7 H AST 54 H ALT 27 Alkaline Phosphatase 98 Troponin I 0.48 H* C-Reactive Protein 8.9 H NT-Pro-B Natriuret Pep 7190 H Total Protein 6.6 Albumin 3.4 Procalcitonin 1.42 H 06/23/22 06:17 WBC RBC Hgb Hct MCV MCH MCHC Plt Count INR VBG pH 7.364 VBG pCO2 44 VBG pO2 57.8 H VBG HCO3 25 Sodium Potassium Chloride Carbon Dioxide BUN Creatinine Estimated Creat Clear Estimated GFR Glucose Calcium Magnesium Total Bilirubin AST ALT Alkaline Phosphatase Troponin I C-Reactive Protein NT-Pro-B Natriuret Pep Total Protein Albumin Procalcitonin
[2022-06-23] MEDS: MORPHINE 10 MG/0.5 ML ORAL SOLN PO ×2 (16:00→17:30)
--- NOTE | 2022-06-23 16:17 | PC.NURSE ---
end of shift. pt has been non verbal or me, he does respond better for family. he is not able to rate pain but he has been given pain meds when moaning or looking uncomfortable. he got IV pain meds MS and Ativan. Diltazem drip @ 15. with IV fluids and TKO fluids. tele shows A-Fib with HR 90-120./ VS taken every 30 minutes. Wills has been patent. po cars cone. he was turned and repositioned every 2 hours. o2 on @ 2L nc. sao2 was 90-93%. Pt is very restless at times and is moaning, not responding to questions, and does respond to pain. Pt with course, crackles. MD has me call to come in for a care conference. Family got here and MD talked to family and Comfort cares where ordered. all IV stopped, tele was d/c o2 was d/c . once Comfort caress.. pt given pain meds as needed. and checked in with family every 30 minutes. was called for anointment of the sick. checked in on pt and with family.
[2022-06-23] MEDS: SODIUM CHLORIDE 0.9 % (FLUSH) 10 ML SYRINGE 5 ML IVF ×2 (16:23→17:26)
[2022-06-23] MEDS: LORazepam 2 MG/ML inj IVP ×2 (16:23→17:25)
--- NOTE | 2022-06-23 20:22 | PC.NURSE ---
Shift Note [phone]: Family at bedside. Pt initially restless this afternoon moaning and appearing uncomfortable. Roxanol given with little relief, Ativan IVP given as well. Oral cares Q2H and mouth moisturizer applied. Levsin given for secretions/rattle. T&R Q2H. Wills patent with minimal amount of dark brent urine. Extremities warm to touch, cap refill to toes less than 3 seconds. Generalized color is pale, no mottling noted.
--- NOTE | 2022-06-24 06:31 | PC.NURSE ---
Addendum entered by Maria Luisa Cruz RN 06/25/22 03:53: Fentanyl patch was removed and waste witnessed by SERA Malone. Pt's family arrived at 0530, [facility] arrived at 0700 and removed body at 0730. Original Note: shift note: Pt was turned and repositioned Q2H with 2 assist, appeared comfortable with repositioning, on comfort cares. Pt at 0345, Bela (pt's ) was updated, Dr[facility] Loza [facility] updated, pt was not a candidate for organ donation. IV's and Wills catheter removed.
--- NOTE | 2022-07-03 12:16 | PM.DS1 ---
DS: Providers Provider Date Seen: 06/23/22 Date of admission: 06/18/22 20:20 Primary care physician: Jose Cherry MD Admitting Clinician: Sonam Valles MD Consults: 06/18/22 20:03 Consult to Physical Therapy [CONS] Routine Comment: Reason(s) for PT Consult:: Evaluate and Treat Any Restrictions?:: Wt Bearing as Tolerated Consult to Claims Attorney [CONS] Routine Comment: Reason for Consult:: Discharge Planning Needs 06/18/22 20:08 Consult to Occupational Therapy [CONS] Routine Comment: Reason(s) for OT Consult:: Evaluate and Treat Any Restrictions?:: Wt Bearing as Tolerated Attending Physician on discharge: Sonam Valles MD DS: Summary Hospital Course Hospital Course: IV was started, given blood pressure was maintaining and his history of aortic stenosis we opted for normal saline at 1 L over 2 hours. Labs were drawn and showed thrombocytopenia at 100,000. Mild anemia, his lactate was quite elevated at 5.5. Blood cultures and urine culture drawn. Vanc and Zosyn administered. Chest x-ray Urinalysis Time Spent with Patient Time attestation: Total time spent providing and/or coordinating discharge services: Discharge Plan Discharge Disposition: Date of Admission: 06/18/22 20:20 Attending Provider on Discharge: Kelly Jj Primary Care Provider: Jose Cherry Date/Time: 06/24/22 03:00 Discharge Comments: Power was on our service all week. He was unresponsive through his entire admission secondary to sepsis from MSSA bacteremia. We never identified a source; however, we felt the source was related to either endocarditis or urosepsis. Despite antibiotics and supportive care his health deteriorated. He on the morning of 06/24 at approximately 3:30am.
--- NOTE | 2022-07-03 12:20 | P.DN_ITS ---
Pronouncement Note Date and Time of Date of : 06/24/22 Time of : 03:30 PCOD Preliminary cause of : Sepsis Summary Additional details: Power was on our service all week. He was unresponsive through his entire admission secondary to sepsis from MSSA bacteremia. We never identified a source; however, we felt the source was related to either endocarditis or urosepsis. Despite antibiotics and supportive care his health deteriorated. He on the morning of 06/24 at approximately 3:30am. [facility] telehospitalist was provider on at time of and they were notified. Additional Data Confirmation of : no pulse Family: contacted Attending physician: Kelly Jj MD [place] [facility] Was code activated?: No Autopsy requested?: No home office claims examiner notified?: Yes Organ bank notified?: Yes Advance directives: Yes
== END 2022-06-24 07:30 | disposition expired | DRG 871 ==
LOC: ED 17:18 → MEDSURG 20:20
PROVIDERS: Family Medicine; Admitting Provider Family Medicine; Emergency Provider Family Medicine; PCP Family Medicine; Visit Provider Family Medicine
DX: A41.01 Sepsis due to Methicillin susceptible Staphylococcus aureus (principal); I21.3 ST elevation (STEMI) myocardial infarction of unspecified site; J96.01 Acute respiratory failure with hypoxia; N13.8 Other obstructive and reflux uropathy; E87.1 Hypo-osmolality and hyponatremia; E87.21 Acute metabolic acidosis; J84.9 Interstitial pulmonary disease, unspecified; D84.9 Immunodeficiency, unspecified; K76.6 Portal hypertension; I35.0 Nonrheumatic aortic (valve) stenosis; F03.90 Unspecified dementia, unspecified severity, without behavioral disturbance, psychotic disturbance, mood disturbance, and anxiety; E11.65 Type 2 diabetes mellitus with hyperglycemia; D64.9 Anemia, unspecified; K80.20 Calculus of gallbladder without cholecystitis without obstruction; D69.6 Thrombocytopenia, unspecified; I48.91 Unspecified atrial fibrillation; Z79.84 Long term (current) use of oral hypoglycemic drugs; Z79.4 Long term (current) use of insulin; M35.00 Sjogren syndrome, unspecified; N40.1 Benign prostatic hyperplasia with lower urinary tract symptoms; K21.9 Gastro-esophageal reflux disease without esophagitis
CPT/HCPCS: 36415; 70450; 71045; 71260; 74177; 76705; 80048; 80053; 80076; 81001; 82330; 82803; 82947; 82962; 83605; 83690; 83735; 83880; 84145; 84484; 85018; 85025; 85027; 85610; 85651; 86140; 87040; 87086; 87186; 87631; 93005; 93306; 94640; 94761; 97165; 99285; A9270; C9113; J0690; J1650; J1885; J1940; J2060; J2270; J2543; J3370; J3480; J3490; J7030; J7050; J7120; P9047; Q9967